=== PATIENT | male | born 1935 | race Caucasian/White ===

== ENCOUNTER 2016-09-17 21:47 | Inpatient (IN) | payer MEDICARE, MEDICAID ==
[2016-09-17] MEDS ORDERED: Albuterol/Ipratropium Neb 3 ML AERS HHN ONE ×2 (22:05→22:23)
--- NOTE | 2016-09-17 22:20 | ED Physician Chart ---
Chief Complaint/HPI - Patient Information Date Seen:: 09/17/16 Time Seen:: 21:50 Chief Complaint:: Cough/Congestion History of Present Illness:: onset x 2 days of fever, cough, and congestion; no H/As, Neck pain, C/P, SOB, Abd. Pain, A/N/V/D/C, chills or urinary s/s Allergies:: Allergies Allergy/AdvReac Type Severity Reaction Status Date / Time aspirin Allergy Verified 01/16/16 10:21 Vitals:: Vital Signs - 8 hr 09/17/16 09/17/16 21:50 22:08 Temp 97.3 F HR 87 91 RR 18 19 BP 148/70 O2 Sat % 97 94 Historian:: Patient, EMS Review:: Nurse's Note Reviewed, Old Chart Reviewed, Transfer documents Reviewed Review of Systems - Review of Systems General/Constitutional: Fever, Chills, No weight loss, No weakness, No diaphoresis, No edema, No loss of appetite Skin: No skin lesions, No rash, No bruising Head: No headache, No light-headedness Eyes: No loss of vision, No pain, No diplopia ENT: No earache, Nasal drainage, No sore throat, No tinnitus Neck: No neck pain, No swelling, No thyromegaly, No stiffness, No mass noted Cardio Vascular: Chest pain, Palpitations, No PND, No orthopnea, No edema Pulmonary: SOB, Cough, No sputum, Wheezing GI: No nausea, No vomiting, No diarrhea, No pain, No melena, No hematochezia, No constipation, No hematemesis G/U: No dysuria, No frequency, No hematuria Musculoskeletal: No bone or joint pain, No back pain, No muscle pain Endocrine: No polyuria, No polydipsia Psychiatric: Prior psych history, Depression, Anxiety, No suicidal ideation, No homicidal ideation, No auditory hallucination, No visual hallucination Hematopoietic: No bruising, No lymphadenopathy Allergic/Immuno: No urticaria, No angioedema Neurological: No syncope, No focal symptoms, No weakness, No paresthesia, No headache, No seizure, No dizziness, No confusion, No vertigo Past Medical History - Past Medical History Obtainable: Yes Past Medical History: HTN, Asthma/COPD, PUD/GERD, Arthritis Family History: Diabetes Melitus, HTN Social History: Non Smoker, No Alcohol, No Drug Use, Single, Care Facility Surgical History: None Psychiatricy History: Depression, Bipolar Medication: Reviewed Family Medical History - Family Member Mother History Unknown: Yes Ethnicity: Non- Living Status: Unknown Physical Exam - Physical Examination General/Constitutional: Awake, Well-developed, well-nourished, Alert, No distress, GCS 15, Non-toxic appearing, Ambulatory Head: Atraumatic Eyes: Lids, conjuctiva normal, PERRL, EOMI Skin: Nl inspection, No rash, No skin lesions, No ecchymosis, Well hydrated, No lymphadenopathy ENMT: External ears, nose nl, Nasal exam nl, Lips, teeth, gums nl Neck: Nontender, Full ROM w/o pain, No JVD, No nuchal rigidity, No bruit, No mass, No stridor Respiratory: Nl effort/Exclusion Other Respiratory comments:: Lungs: + Rales, rhonchi, and wheezes Cardio Vascular: RRR, No murmur, gallop, rubs, NL S1 S2 GI: No tenderness/rebounding/guarding, No organomegaly, No hernia, Normal BS's, Nondistended, No mass/bruits, No McBurney tenderness : No CVA tenderness Extremities: No tenderness or effusion, Full ROM, normal strength in all extremities, No edema, Normal digits & nails Neuro/Psych: Alert/oriented, DTR's symmetric, Normal sensory exam, Normal motor strength, Judgement/insight normal, Mood normal, Normal gait, No focal deficits Misc: normal gait, Normal back, No paraspinal tenderness Labs/Radiology/EKG Results - Radiology Results Results: + LLL Infiltrate; COPD ED Septic Shock - . Is Septic Shock (SBP<90, OR Lactate>4 mmol\L) present?: No - <6hrs of presentation: Vital Signs: Vital Signs - 8 hr 09/17/16 09/17/16 21:50 22:08 Temp 97.3 F HR 87 91 RR 18 19 BP 148/70 O2 Sat % 97 94 Reassessment (Disposition) - Reassessment Reassessment Condition:: Improved - Diagnosis Diagnosis:: Pneumonia; COPD; Sepsis; Cough/Congestion; Fever; Exacerbation of COPD - Aftercare/Follow up Instructions Aftercare/Follow-Up Instructions:: Counseled pt regarding lab results/diagnosis & need follow up, Counseled pt & family regarding lab results/diagnosis & need follow up - Patient Disposition Discharge/Transfer:: Acute Care w/in this hosp Accepting Physician:: Dr. Layne Time Called:: [id number] Time Responded:: 22:30 Admitted to:: Telemetry Spoke to:: Dr. Layne Admitting Medical Physician:: Dr. Layne Condition at Disposition:: Stable, Improved
[2016-09-17] MEDS ORDERED: Levofloxacin 500mg/100mL 500 MG/100 ML BAG IV ONE ×2 (22:30→22:38)
[2016-09-17 22:31] LABS: % BASOPHILS 2.5 % (0.0-2.0); % EOSINOPHILS 1.1 % (0.0-5.0); % LYMPHOCYTES 12.5 % (20.0-50.0); % MONOCYTES 3.7 % (2.0-10.0); % NEUTROPHILS 80.2 % (40.0-80.0); HEMOGLOBIN 16.2 gm/dL (12.6-17.4); MEAN CELL VOLUME 92.2 fl (80-99); MEAN CORPUSCULAR HEMOGLOBIN 30.9 pg (27.0-31.0); MEAN CORPUSCULAR HGB CONC 33.5 pg (28.0-36.0); MEAN PLATELET VOLUME 8.2 fl; NEUTROPHILE ABSOLUTE 12.7 Th/cmm (1.8-8.0); RED BLOOD COUNT 5.24 Mil/cmm (3.80-5.80); RED CELL DISTRIBUTION WIDTH 15.4 % (11.5-20.0)
[2016-09-17 22:40] LABS: WHITE BLOOD COUNT 15.9 Th/cmm (4.8-10.8)
[2016-09-17 22:41] LABS: HEMATOCRIT 48.4 % (39.0-49.0); PLATELET COUNT 349 Th/cmm (150-400)
[2016-09-17 22:48] LABS: INR 1.06 (0.5-1.4)
[2016-09-17 22:52] LABS: TROP I 0.02 ng/mL (0.01-0.05)
[2016-09-17 22:53] LABS: ALB/GLOB RATIO 1.2 (1.0-1.8); ALKALINE PHOSPHATASE 103 U/L (34-104); ANION GAP 9.6 (7.0-16.0); BILIRUBIN,TOTAL 0.6 mg/dL (0.3-1.0); BUN - UREA NITROGEN 23 mg/dL (7-25); BUN/CREATININE RATIO 20.9; CALCIUM SERUM 9.7 mg/dL (8.6-10.3); CARBON DIOXIDE 26.2 mEq/L (21.0-31.0); CHLORIDE 104 mEq/L (98-107); CHOLESTEROL 167 mg/dL (<200); CREATININE - SERUM 1.1 mg/dL (0.7-1.3); GLUCOSE 123 mg/dL (70-105); POTASSIUM SERUM 3.8 mEq/L (3.5-5.1); SGOT 18 U/L (13-39); SGPT/ALT 10 U/L (7-52); SODIUM SERUM 136 mEq/L (136-145); TRIGLYCERIDES 83 mg/dL (<150)
[2016-09-17 23:15] LABS: BNP 76.5 pg/mL (5.0-100.0)
[2016-09-17] MEDS ORDERED: Magnesium Hydroxide (MOM) 30 mL UDC PO PRN (23:28)
[2016-09-17] MEDS ORDERED: Acetaminophen 500 MG TAB PO PRN (23:28)
[2016-09-17] MEDS ORDERED: Maalox 30 mL Cup PO PRN (23:28)
[2016-09-17] MEDS ORDERED: Fleet Enema 135 mL RC PRN (23:28)
[2016-09-17] MEDS ORDERED: Sodium Chloride 0.9% 1,000 ML IV ONE (23:35)
[2016-09-18] MEDS ORDERED: Albuterol Nebulizer 2.5mg/3mL HHN PRN (00:45)
[2016-09-18 01:58] VITALS: BP 127/76
[2016-09-18 02:42] LABS: pH 7.07 (7.35-7.45)
[2016-09-18 02:43] LABS: ABG SOURCE ARTERIAL; ALLEN TEST YES; BE(B) -5.2 mEq/L (-3.0-3.0); CRITICAL VALUES REPORTED BY AB; FIO2 100; HCO3 20.6 mEq/L (20.0-26.0)
[2016-09-18] MEDS: Sodium Chloride 0.9% 1,000 ML IV SCH ×2 (03:38→18:39)
[2016-09-18 05:20] LABS: HEMOGLOBIN 14.4 gm/dL (12.6-17.4)
[2016-09-18 05:31] LABS: HEMATOCRIT 42.3 % (39.0-49.0); MEAN CELL VOLUME 91.8 fl (80-99); MEAN CORPUSCULAR HEMOGLOBIN 31.1 pg (27.0-31.0); MEAN CORPUSCULAR HGB CONC 33.9 pg (28.0-36.0); MEAN PLATELET VOLUME 8.4 fl; PLATELET COUNT 301 Th/cmm (150-400); RED BLOOD COUNT 4.61 Mil/cmm (3.80-5.80)
[2016-09-18 05:38] LABS: ANION GAP 12.2 (7.0-16.0); BUN - UREA NITROGEN 27 mg/dL (7-25); BUN/CREATININE RATIO 22.5; CALCIUM SERUM 9.1 mg/dL (8.6-10.3); CARBON DIOXIDE 23.2 mEq/L (21.0-31.0); CHLORIDE 109 mEq/L (98-107); CREATININE - SERUM 1.2 mg/dL (0.7-1.3); GLUCOSE 217 mg/dL (70-105); POTASSIUM SERUM 4.4 mEq/L (3.5-5.1); SODIUM SERUM 140 mEq/L (136-145)
[2016-09-18 08:38] LABS: BAND NEUTROPHILE 7 % (0-10); NEUTROPHILS 89 % (40-80); PLATELET ESTIMATE ADEQUATE (NORMAL); PLATELET MORPHOLOGY NORMAL (NORMAL); TOTAL CELLS COUNTED 100
[2016-09-18] MEDS ORDERED: INDACATEROL IH SCH (09:00)
[2016-09-18] MEDS ORDERED: GLYCOPYRROLATE IH SCH (09:00)
[2016-09-18] MEDS ORDERED: [UNRECOGNIZED DRUG - OTHER] IH SCH (09:00)
--- NOTE | 2016-09-18 09:58 | Diagnostic Imaging Report ---
CHEST X-RAY: AP view INDICATION: pain COMPARISON: 06/14/2015 FINDINGS: Postsurgical changes of the lower cervical spine are noted. Chronic lung changes are seen with no focal consolidation or effusions. Heart size is normal. Atherosclerotic vascular disease is noted. Degenerative changes of the spine are noted. IMPRESSION: Chronic lung changes. No focal consolidation identified. There may be underlying COPD. Atherosclerotic vascular disease.
--- NOTE | 2016-09-18 10:01 | Diagnostic Imaging Report ---
CHEST X-RAY: AP view INDICATION: Intubation COMPARISON: Chest x-ray 09/17/2016 at 22:33 FINDINGS: ET tube is in place with tip 4 cm above the Donna. COPD lung changes are seen with increased left basal lung markings. Bibasal pleural thickening is suspected. Heart size is normal. Atherosclerosis is noted. IMPRESSION: Interval intubation with ET tube tip 4 cm above the Donna. COPD lung changes. Developing infiltrate the left lung base cannot be excluded.
[2016-09-18] MEDS ORDERED: Probiotic Screen MC PRN (10:58)
--- NOTE | 2016-09-18 11:00 | Diagnostic Imaging Report ---
CHEST X-RAY: AP view INDICATION: Feeding tube placement COMPARISON: Chest x-ray earlier the same day at 2:29 AM FINDINGS: ET tube is seen with tip 4 cm above the figueroa. NG tube is in place with tip in the stomach. There is improved lung aeration. Extensive chronic lung changes are seen with no focal consolidation or effusions. Heart size normal. Atherosclerotic vascular disease is noted. IMPRESSION: NG tube with tip in the stomach ET tube with tip 4 cm above the Figueroa. Extensive chronic lung changes with increased interstitial lung markings. Note that developing faint infiltrate of the left suprahilar region cannot be excluded when compared to previous exams.
[2016-09-18] MEDS ORDERED: VTE Chemical Prophylaxis Screen/Admission MC PRN (11:30)
--- NOTE | 2016-09-18 13:11 | Consultation ---
Consult Note - Consult Note Service Date: 09/18/16 Consult Note: PHYSICIAN Consultation Note: Date of Admission: 09/17/16 Purpose of Consultation: sepsis and pneumonia. Chief Complaint: Patient MADHU LEACH was admitted to location Intensive Care Unit with PNEUMONIA -COPD EXACERBATION. History of Present Illness: 81 year male with history of HTN, Asthma/COPD, PUD/GERD, Arthritis brought from [facility] for for cough and shortness of breath. On initial evaluation, his temperature was 97.3 degree F and WBC Count was 15,900. CXR showed chronic lung changes with pneumonia. He went into respiratory failure so, he was intubated and put on Vent support and admitted to the ICU. He was started on zosyn and ID consult was called for antibiotic management. His lactic acid level was also elevated. I did add vanco IV. Sepsis w/u was performed. Past Medical History: HTN, Asthma/COPD, PUD/GERD, Arthritis. Allergies Allergy/AdvReac Type Severity Reaction Status Date / Time aspirin Allergy Verified 01/16/16 10:21 Vital Signs Temp 98.7 F 09/18/16 04:00 Pulse 82 09/18/16 10:00 Resp 12 09/18/16 10:00 BP 123/68 09/18/16 10:00 Pulse Ox 99 09/18/16 10:00 Intake & Output 09/17/16 09/18/16 09/18/16 18:59 06:59 18:59 Intake Total 350 Balance 350 Intake: Intake, IV Amount 350 Piperacillin Sodium/ 100 Tazobact 4.5 gm In Sodium Chloride 0.9% 100 ml @ 100 mls/hr IV Q8HR [facility] Rx #:[id number] Vancomycin HCl 1 gm In 250 Sodium Chloride 0.9% 250 ml @ 165 mls/hr IV X1 ONE Rx#:[id number] Laboratory Results - last 24 hr 09/17/16 09/18/16 09/18/16 22:48 00:56 01:28 WBC RBC Hgb Hct MCV MCH MCHC Differential RDW Plt Count MPV Band Neutrophils % Neutrophils (Manual) Lymphocytes Monocytes Platelet Estimate Platelet Morphology RBC Morph Micro Appear Specimen Source ARTERIAL Sample Site Right Radial pH 7.07 L* pCO2 93.0 H* pO2 71.0 L HCO3 20.6 Base Excess -5.2 L O2 Saturation 86.0 L Adebayo Test YES Vent Rate N/A Inspired O2 100 Tidal Volume N/A PEEP N/A Pressure (ins/psv/peep) N/A Critical Value AB Sodium Potassium Chloride Carbon Dioxide Anion Gap BUN Creatinine Est GFR ( Amer) Est GFR (Non-Af Amer) BUN/Creatinine Ratio Glucose Hemoglobin A1c % Whole Bld Lactic Acid 2.02 H* 3.14 H* Calcium 09/18/16 09/18/16 09/18/16 05:08 05:08 05:08 WBC 23.0 H* D RBC 4.61 Hgb 14.4 Hct 42.3 D MCV 91.8 MCH 31.1 H MCHC Differential 33.9 RDW 15.0 Plt Count 301 MPV 8.4 Band Neutrophils % 7 Neutrophils (Manual) 89 H Lymphocytes 2 L Monocytes 2 Platelet Estimate ADEQUATE Platelet Morphology NORMAL RBC Morph Micro Appear NORMAL Specimen Source Sample Site pH pCO2 pO2 HCO3 Base Excess O2 Saturation Adebayo Test Vent Rate Inspired O2 Tidal Volume PEEP Pressure (ins/psv/peep) Critical Value Sodium 140 Potassium 4.4 Chloride 109 H Carbon Dioxide 23.2 Anion Gap 12.2 BUN 27 H Creatinine 1.2 Est GFR ( Amer) TNP Est GFR (Non-Af Amer) TNP BUN/Creatinine Ratio 22.5 Glucose 217 H Hemoglobin A1c % 5.3 Whole Bld Lactic Acid Calcium 9.1 Home Medication Medication Instructions Recorded Type Thiamine [Vitamin B1] 100 mg PO DAILY #0 tab 06/29/15 Rx Multivitamin with Minerals 1 tab PO DAILY 01/16/16 History [Multiple Vitamin] Omeprazole 20.6 mg PO QDAC 01/16/16 History amLODIPine Besylate [Norvasc] 5 mg PO DAILY 01/16/16 History Acetaminophen [Tylenol] 650 mg PO Q4HR PRN #0 tab 01/30/16 Rx Al Hyd/Mg Hyd/Simethicone [Maalox] 30 ml PO Q4HR PRN #0 udc 01/30/16 Rx Albuterol Nebulizer 2.5mg/3mL 2.5 mg HHN Q6HRT #0 each 01/30/16 Rx [Albuterol Neb UD*] PARoxetine [Paxil] 10 mg PO DAILY #0 tab 01/30/16 Rx Acetaminophen [Tylenol Extra 2 tab PO Q4HR PRN 09/17/16 History Strength] Bisacodyl [Dulcolax 10 Mg Supp] 10 mg RC DAILY PRN 08/02/17 History Calcium Carbonate/Vitamin D3 1 each PO DAILY 09/17/16 History [Calcium 600 + Vit D Softgel] Docusate Sodium [Colace] 100 mg PO BID 09/17/16 History Donepezil HCl [Aricept] 10 mg PO HS 09/17/16 History Fleet Enema [Fleet Enema] 135 ml RC Q48HR PRN 09/17/16 History Indacaterol/Glycopyrrolate 1 each IH BID 09/17/16 History [Utibron Neohaler 27.5-15.6 Mcg] Magnesium Hydroxide [Milk of 30 ml PO HS PRN 09/17/16 History Magnesia] Memantine [Namenda] 10 mg PO BID 09/17/16 History Current Medications Generic Name Dose Route Start Last Admin Trade Name Freq PRN Reason Stop Dose Admin Acetaminophen 650 mg 09/17/16 23:28 Tylenol PO 11/16/16 23:27 Q4HR PRN Pain (Mild) Acetaminophen 1,000 mg 09/17/16 23:28 Tylenol Extra Strength PO 11/16/16 23:27 Q4HR PRN Pain (Moderate) Al Hydrox/Mg Hydrox/Simethicone 30 ml 09/17/16 23:28 Maalox PO 11/16/16 23:27 Q4HR PRN GI DISTRESS Albuterol Sulfate 2.5 mg 09/18/16 00:45 Albuterol 2.5mg/3ml Neb Ud HHN 11/17/16 00:44 Q4H PRN Shortness of Breath Amlodipine Besylate 5 mg 09/18/16 09:00 Norvasc PO 11/17/16 08:59 DAILY [facility] Bisacodyl 10 mg 09/17/16 23:28 Dulcolax 10 Mg Supp RC 11/16/16 23:27 DAILY PRN Constipation Calcium/Vitamin D 1 tab 09/18/16 09:00 Oscal W/Vitamin D PO 11/17/16 08:59 DAILY [facility] Docusate Sodium 100 mg 09/18/16 09:00 Colace PO 11/17/16 08:59 BID [facility] Donepezil HCl 10 mg 09/18/16 21:00 Aricept PO 11/17/16 20:59 HS [facility] Heparin Sodium (Porcine) 5,000 units 09/18/16 21:00 Heparin SUBQ 11/17/16 20:59 Q12HR [facility] Levofloxacin 500 mg in 100 mls @ 100 mls/hr 09/18/16 23:00 Levaquin Pb IV 11/17/16 22:59 Q24HR [facility] Sodium Chloride 1,000 mls @ 100 mls/hr 09/18/16 03:23 09/18/16 03:38 Nacl 0.9% IV 11/17/16 03:22 100 mls/hr .Q10H [facility] Administration Piperacillin Sod/Tazobactam 100 mls @ 100 mls/hr 09/18/16 05:00 09/18/16 06: 20 Sod 4.5 gm/ Sodium Chloride IV 11/17/16 04:59 Infused Q8HR [facility] Infusion Vancomycin HCl 1 gm/ Sodium 250 mls @ 165 mls/hr 09/18/16 10:00 Chloride IV 11/17/16 09:59 Q12H [facility] Lactobacillus Rhamnosus 1 each 09/19/16 09:00 Culturelle PO 11/18/16 08:59 DAILY [facility] Magnesium Hydroxide 30 ml 09/17/16 23:28 Milk Of Magnesia PO 11/16/16 23:27 HS PRN Constipation Memantine 10 mg 09/18/16 09:00 Namenda PO 11/17/16 08:59 BID [facility] Miscellaneous 1 each 09/18/16 09:00 Indacaterol/Glycopyrrolate [Utibron Neohaler 27.5-15.6 Mcg] IH 11/17/16 08: 59 BID [facility] Miscellaneous 1 ea 09/18/16 05:13 Vancomycin Iv Per Pharmacy 11/17/16 05:12 PRN PRN PROTOCOL Miscellaneous 1 09/18/16 10:58 Probiotic Screen 11/17/16 10:57 PRN PRN PROTOCOL Miscellaneous 1 09/18/16 11:30 [employer] Prophylaxis Screen/ Admission 11/17/16 11:29 PRN PRN PROTOCOL Pantoprazole Sodium 40 mg 09/18/16 07:30 Protonix PO 11/17/16 07:29 QDAC [facility] Paroxetine HCl 10 mg 09/18/16 09:00 Paxil PO 11/17/16 08:59 DAILY [facility] Protocol Pneumococcal Polyvalent Vaccine 0.5 ml 09/20/16 09:00 Pneumovax IM 09/20/16 09:01 .ONCE ONE Sodium Phosphate 135 ml 09/17/16 23:28 Fleet Enema RC 11/16/16 23:27 Q48HR PRN Constipation Thiamine HCl 100 mg 09/18/16 09:00 Vitamin B1 PO 11/17/16 08:59 DAILY [facility] Review of Systems: A 12 point ROS was reviewed with the pertinent positive and negatives noted in the HPI. Social History Smoking Status Never smoker Family Medical History DM2 Physical Exam: General: Intubated orally, on the ventilator support. arousable. moves is all 4 extremities. HEENT: Head : Normocephalic, atraumatic. Oral cavity: Moist, pink tongue. Patient intubated orally. Neck: Supple, no rigidity, no use of accessory neck muscles. Cardio: S1 and S2 within normal limits regular rhythm no murmur no gallop. Respiratory: Vesicular breath sound, crackles present bilaterally Abdominal: , Nontender, nondistended bowel sounds present scaphoid. Genital/Urinary: Deferred Extremities: No cyanosis, no clubbing, no edema. Pulses are palpable in all 4 extremities. Neurological: Oriented. Alert, awake, follows the commands. Assessment: 1. Sepsis. Severe sepsis. Lactic acidemia. 2. Pneumonia. 3. 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 4. Vent-dependent respiratory failure, acute. 5. Hypertension. Plan: Will continue vancomycin IV and Zosyn. Check lactic acid. Signed, Duy Augustin M.D. [id number]
[2016-09-18] MEDS: Multivitamin w/ Minerals Tab PO SCH (13:52)
[2016-09-18] MEDS: Calcium Carb/Vit D 500 mg/200 U Tab PO SCH (13:52)
[2016-09-18] MEDS: Pantoprazole 40 mg EC Tab PO SCH (13:52)
[2016-09-18 15:47] LABS: ABG SOURCE Arterial; ALLEN TEST Positive; BE(B) -1.5 mEq/L (-3.0-3.0); HCO3 23.8 mEq/L (20.0-26.0); pH 7.48 (7.35-7.45)
[2016-09-18 15:48] LABS: FIO2 40; MECH RATE 12; MECH VT 550
[2016-09-18] MEDS: Albuterol Nebulizer 2.5mg/3mL HHN SCH ×3 (16:03→22:42)
[2016-09-18 19:51] LABS: URINE BILIRUBIN NEGATIVE (NEGATIVE); URINE BLOOD TRACE (NEGATIVE); URINE GLUCOSE (UA) NEGATIVE (NEGATIVE); URINE KETONE TRACE mg/dL (NEGATIVE); URINE PH 5.5 (4.6 - 8.0); URINE PROTEIN TRACE mg/dL (NEGATIVE); URINE UROBILINOGEN 0.2 E.U./dL (0.2 - 1.0)
[2016-09-18 19:57] LABS: URINE BACTERIA FEW /hpf (NONE SEEN); URINE COLOR YELLOW; URINE EPITHELIAL CELLS FEW /lpf (FEW)
--- NOTE | 2016-09-18 22:28 | Consultation ---
DATE OF CONSULTATION: 09/18/2016 PATIENT OF: Dr. Layne. Thank you very much Dr. Layne for this consultation. HISTORY OF PRESENT ILLNESS: This is an 81-year-old male with history of COPD, presented with acute respiratory distress, shortness of breath, and was diagnosed with COPD exacerbation, and pneumonia. The patient apparently was developing desaturation. ABG shows CO2 retention and respiratory acidosis. The patient required to be intubated and placed on a ventilator. The patient is now awake, alert and responsive, but is not answering questions especially about smoking or the breathing. PAST MEDICAL HISTORY: As above. SOCIAL HISTORY: Smoking appears to be many years ago. REVIEW OF SYSTEMS: Unable to obtain because of the patient's condition. PHYSICAL EXAMINATION: GENERAL: The patient is intubated, arousable, not in acute distress. VITAL SIGNS: Temperature is 98.7, pulse is 75, respiration is 20, blood pressure is 123/60, saturation 100%. HEENT: Atraumatic, normocephalic. Pupils react to light and accommodation. Ears, nose and throat normal. NECK: Supple. No JVD. CHEST: There are decreased breath sounds, rhonchi and wheezing bilaterally. HEART: Regular rate. ABDOMEN: Soft. EXTREMITIES: No edema. LABORATORY DATA: WBC is 23.0, hemoglobin 14.4, hematocrit 42.3, platelets 301. ABGs last one was severe respiratory acidosis. Sodium 140, potassium 4.4, BUN is 27, creatinine 1.2. Lactic acid 3.6. Chest x-ray, bilateral infiltrate. ET tube in place. IMPRESSION: 1. This is an 81-year-old male with acute respiratory failure. 2. Pneumonia. 3. Chronic obstructive pulmonary disease exacerbation. 4. Severely respiratory acidosis. PLAN: 1. Ventilator support. 2. IV Solu-Medrol. 3. Pulmonary toilet. 4. Antibiotics. 5. Follow up ABGs and chest x-ray. I will follow the patient with you. Thank you very much for this consultation. JOB# [id number]
[2016-09-18] MEDS: Levofloxacin 500mg/100mL 500 MG/100 ML BAG IV SCH (23:55)
[2016-09-19 06:07] LABS: MEAN CELL VOLUME 92.3 fl (80-99); MEAN CORPUSCULAR HEMOGLOBIN 31.8 pg (27.0-31.0); MEAN CORPUSCULAR HGB CONC 34.5 pg (28.0-36.0); MEAN PLATELET VOLUME 8.9 fl; RED BLOOD COUNT 3.88 Mil/cmm (3.80-5.80); RED CELL DISTRIBUTION WIDTH 15.2 % (11.5-20.0)
[2016-09-19 06:12] LABS: ANION GAP 7.4 (7.0-16.0); BUN - UREA NITROGEN 34 mg/dL (7-25); BUN/CREATININE RATIO 28.3; CALCIUM SERUM 8.7 mg/dL (8.6-10.3); CARBON DIOXIDE 22.2 mEq/L (21.0-31.0); CHLORIDE 116 mEq/L (98-107); CREATININE - SERUM 1.2 mg/dL (0.7-1.3); GLUCOSE 190 mg/dL (70-105); POTASSIUM SERUM 3.6 mEq/L (3.5-5.1); SODIUM SERUM 142 mEq/L (136-145)
[2016-09-19] MEDS: Albuterol Nebulizer 2.5mg/3mL HHN SCH ×5 (07:17→22:46)
[2016-09-19 07:47] LABS: HEMATOCRIT 35.8 % (39.0-49.0); HEMOGLOBIN 12.4 gm/dL (12.6-17.4); PLATELET COUNT 240 Th/cmm (150-400); WHITE BLOOD COUNT 18.9 Th/cmm (4.8-10.8)
[2016-09-19 08:24] LABS: BAND NEUTROPHILE 6 % (0-10); NEUTROPHILS 85 % (40-80); PLATELET ESTIMATE ADEQUATE (NORMAL); PLATELET MORPHOLOGY NORMAL (NORMAL); TOTAL CELLS COUNTED 100
[2016-09-19] MEDS: Calcium Carb/Vit D 500 mg/200 U Tab PO SCH (09:07)
[2016-09-19] MEDS: Lactobacillus Rhamnosus 10 Billion CFU Capsule PO SCH (09:07)
[2016-09-19] MEDS: Multivitamin w/ Minerals Tab PO SCH (09:07)
--- NOTE | 2016-09-19 09:14 | Diagnostic Imaging Report ---
Portable chest x-ray HISTORY: Shortness of breath The heart size is normal. Atherosclerotic calcification seen in the aorta. Accentuation of the interstitial lung markings. However, no acute focal pulmonary processes are seen. An endotracheal tube tip is approximately 3.5 cm above the figueroa. Severe degenerative changes to the spine. IMPRESSION: 1. No change from September 18, 2016. 2. Accentuation of the interstitial lung markings. However, no focal processes are seen.
[2016-09-19] MEDS: Pantoprazole 40 mg EC Tab PO SCH (09:26)
[2016-09-19] MEDS: Sodium Chloride 0.9% 1,000 ML IV SCH ×2 (09:28→19:57)
--- NOTE | 2016-09-19 11:55 | History & Physical ---
ADMIT DATE: 09/18/2016 HISTORY OF PRESENT ILLNESS: The patient apparently is from [facility]. The patient ____ history of fever, cough, ____, chest congestion for the last 2 days, was complaining of shortness of breath, was transferred to the ER and DrAnabell ____ saw the patient and found that he has pneumonia and initially I was told that ____ deteriorated respiratory function requiring intubation and was admitted to ICU. REVIEW OF SYSTEMS: Noted earlier, the patient has a history of ____. PAST MEDICAL HISTORY: Included history of asthma, history of ____, history of peptic ulcer disease. PHYSICAL EXAMINATION: GENERAL: As I told initially was awake, alert, shortness of breath ____. HEAD: Normal. The patient is intubated. ____. ENT: Normal. LUNGS: Bilateral rales. CARDIOVASCULAR SYSTEM: S1, S2 heard. ABDOMEN: Soft. DIAGNOSES: Acute respiratory failure, status post recent intubation, pneumonia, history of hypertension, history of asthma, and history of psych disorder. PLAN: The patient is being admitted and will have Dr. Duy Augustin see the patient for ID as well as Dr. Sharma for Pulmonary and I will follow the patient. [facility]# [id number]
--- NOTE | 2016-09-19 16:16 | Infectious Disease Prog Note ---
Infectious Disease Subjective - Review of Systems Service Date: 09/19/16 Subjective: No change,no fever. Infectious Disease Objective - Results Result Diagrams: 09/19/16 04:54 09/19/16 04:54 Recent Labs: Laboratory Last Values WBC 18.9 Th/cmm (4.8-10.8) H 09/19/16 04:54 RBC 3.88 Mil/cmm (3.80-5.80) 09/19/16 04:54 Hgb 12.4 gm/dL (12.6-17.4) L D 09/19/16 04:54 Hct 35.8 % (39.0-49.0) L D 09/19/16 04:54 MCV 92.3 fl (80-99) 09/19/16 04:54 MCH 31.8 pg (27.0-31.0) H 09/19/16 04:54 MCHC Differential 34.5 pg (28.0-36.0) 09/19/16 04:54 RDW 15.2 % (11.5-20.0) 09/19/16 04:54 Plt Count 240 Th/cmm (150-400) D 09/19/16 04:54 MPV 8.9 fl 09/19/16 04:54 Neutrophils % 80.2 % (40.0-80.0) H 09/17/16 22:19 Band Neutrophils % 6 % (0-10) 09/19/16 04:54 Lymphocytes % 12.5 % (20.0-50.0) L 09/17/16 22:19 Monocytes % 3.7 % (2.0-10.0) 09/17/16 22:19 Eosinophils % 1.1 % (0.0-5.0) 09/17/16 22:19 Basophils % 2.5 % (0.0-2.0) H 09/17/16 22:19 Neutrophils (Manual) 85 % (40-80) H 09/19/16 04:54 Lymphocytes 4 % (20-50) L 09/19/16 04:54 Monocytes 5 % (2-10) 09/19/16 04:54 Platelet Estimate ADEQUATE (NORMAL) 09/19/16 04:54 Platelet Morphology NORMAL (NORMAL) 09/19/16 04:54 RBC Morph Micro Appear NORMAL (NORMAL) 09/19/16 04:54 PT 11.0 SECONDS (9.5-11.5) 09/17/16 22:19 INR 1.06 (0.5-1.4) 09/17/16 22:19 PTT (Actin FS) 25.3 SECONDS (26.0-38.0) L 09/17/16 22:19 D-Dimer 1280 ng/mL (100-400) H 09/17/16 22:19 Specimen Source Arterial 09/18/16 15:24 Sample Site Right Radial 09/18/16 15:24 pH 7.48 (7.35-7.45) H 09/18/16 15:24 pCO2 28.0 mmHg (35.0-45.0) L 09/18/16 15:24 pO2 131.0 mmHg (80.0-100.0) H 09/18/16 15:24 HCO3 23.8 mEq/L (20.0-26.0) 09/18/16 15:24 Base Excess -1.5 mEq/L (-3.0-3.0) 09/18/16 15:24 O2 Saturation 99.0 % (92.0-100.0) 09/18/16 15:24 Adebayo Test Positive 09/18/16 15:24 Vent Rate 12 09/18/16 15:24 Inspired O2 40 09/18/16 15:24 Tidal Volume 550 09/18/16 15:24 PEEP NA 09/18/16 15:24 Pressure (ins/psv/peep) NA 09/18/16 15:24 Critical Value LZHANG 09/18/16 15:24 Sodium 142 mEq/L (136-145) 09/19/16 04:54 Potassium 3.6 mEq/L (3.5-5.1) 09/19/16 04:54 Chloride 116 mEq/L (98-107) H 09/19/16 04:54 Carbon Dioxide 22.2 mEq/L (21.0-31.0) 09/19/16 04:54 Anion Gap 7.4 (7.0-16.0) 09/19/16 04:54 BUN 34 mg/dL (7-25) H 09/19/16 04:54 Creatinine 1.2 mg/dL (0.7-1.3) 09/19/16 04:54 Est GFR ( Amer) TNP 09/19/16 04:54 Est GFR (Non-Af Amer) TNP 09/19/16 04:54 BUN/Creatinine Ratio 28.3 09/19/16 04:54 Glucose 190 mg/dL (70-105) H 09/19/16 04:54 Hemoglobin A1c % 5.3 % (4.0-6.0) 09/18/16 05:08 Whole Bld Lactic Acid 3.35 mmol/L (0.60-1.99) H* 09/18/16 15:38 Calcium 8.7 mg/dL (8.6-10.3) 09/19/16 04:54 Total Bilirubin 0.6 mg/dL (0.3-1.0) 09/17/16 22:19 AST 18 U/L (13-39) 09/17/16 22:19 ALT 10 U/L (7-52) 09/17/16 22:19 Alkaline Phosphatase 103 U/L (34-104) 09/17/16 22:19 Creatine Kinase 73 U/L (30-223) 09/17/16 22:19 Troponin I 0.02 ng/mL (0.01-0.05) 09/17/16 22:19 B-Natriuretic Peptide 76.5 pg/mL (5.0-100.0) 09/17/16 22:19 Total Protein 7.5 gm/dL (6.0-8.3) 09/17/16 22:19 Albumin 4.1 gm/dL (4.2-5.5) L 09/17/16 22:19 Globulin 3.4 gm/dL 09/17/16 22:19 Albumin/Globulin Ratio 1.2 (1.0-1.8) 09/17/16 22:19 Triglycerides 83 mg/dL (<150) 09/17/16 22:19 Cholesterol 167 mg/dL (<200) 09/17/16 22:19 LDL Cholesterol Direct 120 mg/dL (75-193) 09/17/16 22:19 HDL Cholesterol 46 mg/dL (23-92) 09/17/16 22:19 Urine Source CLEAN C 09/18/16 19:00 Urine Color YELLOW 09/18/16 19:00 Urine Clarity TURBID (CLEAR) 09/18/16 19:00 Urine pH 5.5 (4.6 - 8.0) 09/18/16 19:00 Ur Specific [place] 1.025 (1.005-1.030) 09/18/16 19:00 Urine Protein TRACE mg/dL (NEGATIVE) 09/18/16 19:00 Urine Glucose (UA) NEGATIVE mg/dL (NEGATIVE) 09/18/16 19:00 Urine Ketones TRACE mg/dL (NEGATIVE) 09/18/16 19:00 Urine Blood TRACE (NEGATIVE) 09/18/16 19:00 Urine Nitrate NEGATIVE (NEGATIVE) 09/18/16 19:00 Urine Bilirubin NEGATIVE (NEGATIVE) 09/18/16 19:00 Urine Urobilinogen 0.2 E.U./dL (0.2 - 1.0) 09/18/16 19:00 Ur Leukocyte Esterase NEGATIVE (NEGATIVE) 09/18/16 19:00 Urine RBC 2-5 /hpf (0-5) H 09/18/16 19:00 Urine WBC 2-5 /hpf (0-5) H 09/18/16 19:00 Ur Epithelial Cells FEW /lpf (FEW) 09/18/16 19:00 Urine Bacteria FEW /hpf (NONE SEEN) 09/18/16 19:00 Vancomycin Trough 17.2 ug/mL (10-20) 09/19/16 09:20 - Physical Exam Vitals and I&O: Vital Signs Temp 99.1 F 09/19/16 13:00 Pulse 83 09/19/16 15:29 Resp 12 09/19/16 13:00 BP 137/68 09/19/16 13:00 Pulse Ox 100 09/19/16 15:29 Intake & Output 09/18/16 09/19/16 09/19/16 18:59 06:59 18:59 Intake Total 1650 1999 Balance 1650 1999 Weight (lbs) 61.235 kg 61.235 kg Intake: Intake, IV Amount 1350 1450 Piperacillin Sodium/ 100 200 Tazobact 4.5 gm In Sodium Chloride 0.9% 100 ml @ 100 mls/hr IV Q8HR [facility] Rx #:[id number] Sodium Chloride 0.9% 1, 1000 1000 000 ml @ 100 mls/hr IV . Q10H [facility] Rx#:[id number] Vancomycin HCl 1 gm In 250 250 Sodium Chloride 0.9% 250 ml @ 165 mls/hr IV Q12H [facility] Rx#:[id number] Tube Feeding 300 550 Other: # Voids 3 5 # Bowel Movements 0 0 Active Medications: Current Medications Acetaminophen (Tylenol) 650 mg PO Q4HR PRN PRN Reason: Pain (Mild) Stop: 11/16/16 23:27 Al Hydrox/Mg Hydrox/Simethicone (Maalox) 30 ml PO Q4HR PRN PRN Reason: GI DISTRESS Stop: 11/16/16 23:27 Albuterol Sulfate (Albuterol 2.5mg/3ml Neb Ud) 2.5 mg HHN Q4H [facility] Stop: 11/17/16 15:14 Last Admin: 09/19/16 15:29 Dose: 2.5 mg Amlodipine Besylate (Norvasc) 5 mg PO DAILY [facility] Stop: 11/17/16 08:59 Last Admin: 09/19/16 09:07 Dose: 5 mg Bisacodyl (Dulcolax 10 Mg Supp) 10 mg RC DAILY PRN PRN Reason: Constipation Stop: 11/16/16 23:27 Calcium/Vitamin D (Oscal W/Vitamin D) 1 tab PO DAILY [facility] Stop: 11/17/16 08:59 Last Admin: 09/19/16 09:07 Dose: 1 tab Docusate Sodium (Colace) 100 mg PO BID [facility] Stop: 11/17/16 08:59 Last Admin: 09/19/16 09:07 Dose: 100 mg Donepezil HCl (Aricept) 10 mg PO HS [facility] Stop: 11/17/16 20:59 Last Admin: 09/18/16 20:48 Dose: 10 mg Heparin Sodium (Porcine) (Heparin) 5,000 units SUBQ Q12HR [facility] Stop: 11/17/16 20:59 Last Admin: 09/19/16 09:09 Dose: 5,000 units Levofloxacin (Levaquin Pb) 500 mg in 100 mls @ 100 mls/hr IV Q24HR [facility] Stop: 11/17/16 22:59 Last Admin: 09/18/16 23:55 Dose: 100 mls/hr Sodium Chloride (Nacl 0.9%) 1,000 mls @ 100 mls/hr IV .Q10H [facility] Stop: 11/17/16 03:22 Last Admin: 09/19/16 09:28 Dose: 100 mls/hr Piperacillin Sod/Tazobactam (Sod 4.5 gm/ Sodium Chloride) 100 mls @ 100 mls/hr IV Q8HR [facility] Stop: 11/17/16 04:59 Last Admin: 09/19/16 14:17 Dose: 100 mls/hr Vancomycin HCl 1 gm/ Sodium (Chloride) 250 mls @ 165 mls/hr IV Q12H [facility] Stop: 11/17/16 09:59 Last Admin: 09/19/16 11:02 Dose: 165 mls/hr Lactobacillus Rhamnosus (Culturelle) 1 each PO DAILY [facility] Stop: 11/18/16 08:59 Last Admin: 09/19/16 09:07 Dose: 1 each Lorazepam (Ativan) 1 mg IVP Q4HR PRN; Protocol PRN Reason: Agitation Stop: 11/17/16 15:11 Magnesium Hydroxide (Milk Of Magnesia) 30 ml PO HS PRN PRN Reason: Constipation Stop: 11/16/16 23:27 Memantine (Namenda) 10 mg PO BID [facility] Stop: 11/17/16 08:59 Last Admin: 09/19/16 09:07 Dose: 10 mg Methylprednisolone Sodium Succinate (Solu-Medrol) 40 mg IVP Q12HR [facility] Stop: 11/18/16 20:59 Miscellaneous (Probiotic Screen) 1 ea PRN PRN PRN Reason: PROTOCOL Stop: 11/17/16 10:57 Miscellaneous (Vte Chemical Prophylaxis Screen/ Admission) 1 ea PRN PRN PRN Reason: PROTOCOL Stop: 11/17/16 11:29 Miscellaneous (Vancomycin Iv Per Pharmacy) 1 ea MC PRN [facility] Stop: 11/17/16 12:14 Pantoprazole Sodium (Protonix) 40 mg PO QDAC [facility] Stop: 11/17/16 07:29 Last Admin: 09/19/16 09:26 Dose: 40 mg Paroxetine HCl (Paxil) 10 mg PO DAILY [facility] PRN Reason: Protocol Stop: 11/17/16 08:59 Last Admin: 09/19/16 09:08 Dose: 10 mg Pneumococcal Polyvalent Vaccine (Pneumovax) 0.5 ml IM .ONCE ONE Stop: 09/20/16 09:01 Sodium Phosphate (Fleet Enema) 135 ml RC Q48HR PRN PRN Reason: Constipation Stop: 11/16/16 23:27 Thiamine HCl (Vitamin B1) 100 mg PO DAILY [facility] Stop: 11/17/16 08:59 Last Admin: 09/19/16 09:07 Dose: 100 mg General: no acute distress, well developed, well nourished HEENT: atraumatic, normocephalic, PERRLA, EOMI Neck: supple, no thyromegaly Cardiovascular: S1S2, regular Lungs: clear to auscultation bilaterally, clear to percussion Abdomen: soft, no tender, no distended Extremities: no cyanosis, no clubbing, no edema Neurological: awake, alert - Procedures Procedures: Procedures Procedure Code Date GROUP PSYCHOTHERAPY 57480 06/14/15 GROUP PSYCHOTHERAPY GZHZZZZ 06/14/15 INSERT EMERGENCY AIRWAY 61292 09/17/16 INSERTION OF ENDOTRACHEAL AIRWAY INTO [facility]HEA, VIA OPENING [id number] 09/17/16 RESPIRATORY VENTILATION, 24-96 CONSECUTIVE HOURS [id number] 09/17/16 VENT MGMT INPAT INIT DAY 51636 09/17/16 VENT MGMT INPAT SUBQ DAY 85332 09/17/16 Infectious Disease Assmt/Plan - Problem List Patient Problems: All Active Problems Dementia (Acute) F03.90 INAPPROPRIATE TOUCHING (Acute 06/14/15) Inappropriate behavior (Acute) F99 - Assessment Assessment: 1. Sepsis. Severe sepsis. Lactic acidemia. 2. Pneumonia. 3. 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 4. Vent-dependent respiratory failure, acute. 5. Hypertension. Plan: Will continue vancomycin IV and Zosyn.
[2016-09-19] MEDS: methylPREDNISolone SS 40 mg Vial IVP SCH (20:55)
[2016-09-19] MEDS: Levofloxacin 500mg/100mL 500 MG/100 ML BAG IV SCH (23:48)
[2016-09-20] MEDS: Albuterol Nebulizer 2.5mg/3mL HHN SCH ×4 (03:11→14:52)
[2016-09-20 05:18] LABS: HEMATOCRIT 37.3 % (39.0-49.0); HEMOGLOBIN 12.5 gm/dL (12.6-17.4); MEAN CELL VOLUME 92.2 fl (80-99); MEAN CORPUSCULAR HEMOGLOBIN 30.9 pg (27.0-31.0); MEAN CORPUSCULAR HGB CONC 33.5 pg (28.0-36.0); MEAN PLATELET VOLUME 8.5 fl; PLATELET COUNT 216 Th/cmm (150-400); RED BLOOD COUNT 4.05 Mil/cmm (3.80-5.80); RED CELL DISTRIBUTION WIDTH 15.5 % (11.5-20.0)
[2016-09-20 05:45] LABS: WHITE BLOOD COUNT 15.8 Th/cmm (4.8-10.8)
[2016-09-20 05:46] LABS: ANION GAP 8.1 (7.0-16.0); BUN - UREA NITROGEN 19 mg/dL (7-25); BUN/CREATININE RATIO 21.1; CALCIUM SERUM 8.7 mg/dL (8.6-10.3); CARBON DIOXIDE 24.3 mEq/L (21.0-31.0); CHLORIDE 108 mEq/L (98-107); CREATININE - SERUM 0.9 mg/dL (0.7-1.3); GLUCOSE 164 mg/dL (70-105); POTASSIUM SERUM 3.4 mEq/L (3.5-5.1); SODIUM SERUM 137 mEq/L (136-145)
[2016-09-20 05:53] LABS: TOTAL CELLS COUNTED 100
[2016-09-20 05:54] LABS: BAND NEUTROPHILE 6 % (0-10); BASOPHIL 0 % (0-3); EOSINOPHIL 0 % (0-5); NEUTROPHILS 88 % (40-80)
[2016-09-20 05:55] LABS: PLATELET ESTIMATE ADEQUATE (NORMAL); PLATELET MORPHOLOGY NORMAL (NORMAL)
[2016-09-20] MEDS: Sodium Chloride 0.9% 1,000 ML IV SCH (06:17)
[2016-09-20] MEDS ORDERED: KCL 20mEq/100mL Premix 20 MEQ/100 ML PIGGYBACK IV ONE (08:11)
[2016-09-20] MEDS: Pantoprazole 40 mg EC Tab PO SCH (09:00)
[2016-09-20] MEDS ORDERED: Pneumococcal Vaccine 0.5 mL Vial IM ONE (09:00)
[2016-09-20] MEDS: methylPREDNISolone SS 40 mg Vial IVP SCH ×2 (09:57→20:42)
[2016-09-20] MEDS: Lactobacillus Rhamnosus 10 Billion CFU Capsule PO SCH (09:59)
[2016-09-20 10:00] LABS: pH 7.45 (7.35-7.45)
[2016-09-20 10:01] LABS: ABG SOURCE Arterial; ALLEN TEST Positive; BE(B) 1.8 mEq/L (-3.0-3.0); FIO2 28; HCO3 26.3 mEq/L (20.0-26.0)
[2016-09-20] MEDS: Calcium Carb/Vit D 500 mg/200 U Tab PO SCH (10:02)
[2016-09-20] MEDS: Multivitamin w/ Minerals Tab PO SCH (10:02)
--- NOTE | 2016-09-20 10:40 | Diagnostic Imaging Report ---
Exam: Portable examination of the chest. HISTORY: Shortness of breath. Findings Portable upright examination of chest at 0941 hours reviewed no prior studies available comparison. Bony thorax intact. Fusion of cervical spine appreciated. The aortic arch calcified. No acute pulmonic infiltrates are noted. The costophrenic angles are clear. COPD changes are noted. IMPRESSION: COPD changes no acute disease.
[2016-09-20] MEDS ORDERED: Potassium Chloride 20 MEQ, Lidocaine 1% 20mL Vial 25 MG in Sodium Chloride 0.9% 250 ML IV ONE (10:47)
--- NOTE | 2016-09-20 12:49 | Progress Notes ---
DATE: 09/20/2016 SUBJECTIVE: The patient was seen in her room, lying in the bed. The patient is a poor historian due to medical condition. The patient is currently on simple mask, but no shortness of breath. The patient appears in no acute distress, appears to be comfortable. OBJECTIVE: VITAL SIGNS: Heart rhythm 65, blood pressure 163/66, respiration of 19, 99% on simple mask. HEENT: Head is atraumatic and normocephalic. Eyes: Bilateral conjunctivae are clear. Bilateral pupils are equally round and reactive. NECK: Supple. No JVD. CARDIOVASCULAR: S1 and S2, without murmur. Yahir to sinus rhythm on the monitor. PULMONARY: Mild inspiratory wheezing noted. GASTROINTESTINAL: Soft and nontender without guarding. Positive bowel sounds. MUSCULOSKELETAL: No edema, no clubbing, no cyanosis noted. ASSESSMENT: 1. Acute respiratory failure. 2. Pneumonia. 3. Hypertension. 4. Asthma. 5. Bipolar. 6. Dementia. 7. Gastroesophageal reflux disease. PLAN: We will continue IV antibiotics per ID doctor. We will continue breathing treatment and provide pulmonary support. Treatment plans were discussed with patient's nurse. Treatment plans were also discussed with Dr. Layne. JOB# [id number]
[2016-09-20] MEDS: Levofloxacin 500mg/100mL 500 MG/100 ML BAG IV SCH (23:40)
[2016-09-21] MEDS: Albuterol Nebulizer 2.5mg/3mL HHN SCH ×5 (03:35→19:06)
[2016-09-21] MEDS: Pantoprazole 40 mg EC Tab PO SCH (06:48)
--- NOTE | 2016-09-21 07:26 | General Progress Note ---
Subjective - Review of Systems Events since last encounter: no distress denies sob Objective - Results Result Diagrams: 09/20/16 05:00 09/20/16 05:00 Recent Labs: Laboratory Last Values WBC 15.8 Th/cmm (4.8-10.8) H 09/20/16 05:00 RBC 4.05 Mil/cmm (3.80-5.80) 09/20/16 05:00 Hgb 12.5 gm/dL (12.6-17.4) L 09/20/16 05:00 Hct 37.3 % (39.0-49.0) L 09/20/16 05:00 MCV 92.2 fl (80-99) 09/20/16 05:00 MCH 30.9 pg (27.0-31.0) 09/20/16 05:00 MCHC Differential 33.5 pg (28.0-36.0) 09/20/16 05:00 RDW 15.5 % (11.5-20.0) 09/20/16 05:00 Plt Count 216 Th/cmm (150-400) 09/20/16 05:00 MPV 8.5 fl 09/20/16 05:00 Neutrophils % 80.2 % (40.0-80.0) H 09/17/16 22:19 Band Neutrophils % 6 % (0-10) 09/20/16 05:00 Lymphocytes % 12.5 % (20.0-50.0) L 09/17/16 22:19 Monocytes % 3.7 % (2.0-10.0) 09/17/16 22:19 Eosinophils % 1.1 % (0.0-5.0) 09/17/16 22:19 Basophils % 2.5 % (0.0-2.0) H 09/17/16 22:19 Neutrophils (Manual) 88 % (40-80) H 09/20/16 05:00 Lymphocytes 4 % (20-50) L 09/20/16 05:00 Monocytes 2 % (2-10) 09/20/16 05:00 Eosinophils 0 % (0-5) 09/20/16 05:00 Basophils 0 % (0-3) 09/20/16 05:00 Platelet Estimate ADEQUATE (NORMAL) 09/20/16 05:00 Platelet Morphology NORMAL (NORMAL) 09/20/16 05:00 RBC Morph Micro Appear NORMAL (NORMAL) 09/20/16 05:00 PT 11.0 SECONDS (9.5-11.5) 09/17/16 22:19 INR 1.06 (0.5-1.4) 09/17/16 22:19 PTT (Actin FS) 25.3 SECONDS (26.0-38.0) L 09/17/16 22:19 D-Dimer 1280 ng/mL (100-400) H 09/17/16 22:19 Specimen Source Arterial 09/20/16 09:33 Sample Site Left Radial 09/20/16 09:33 pH 7.45 (7.35-7.45) 09/20/16 09:33 pCO2 37.0 mmHg (35.0-45.0) 09/20/16 09:33 pO2 77.0 mmHg (80.0-100.0) L 09/20/16 09:33 HCO3 26.3 mEq/L (20.0-26.0) H 09/20/16 09:33 Base Excess 1.8 mEq/L (-3.0-3.0) 09/20/16 09:33 O2 Saturation 96.0 % (92.0-100.0) 09/20/16 09:33 Adebayo Test Positive 09/20/16 09:33 Vent Rate 12 09/18/16 15:24 Inspired O2 28 09/20/16 09:33 Tidal Volume 550 09/18/16 15:24 PEEP NA 09/18/16 15:24 Pressure (ins/psv/peep) NA 09/18/16 15:24 Critical Value PING 09/20/16 09:33 Sodium 137 mEq/L (136-145) 09/20/16 05:00 Potassium 3.4 mEq/L (3.5-5.1) L 09/20/16 05:00 Chloride 108 mEq/L (98-107) H 09/20/16 05:00 Carbon Dioxide 24.3 mEq/L (21.0-31.0) 09/20/16 05:00 Anion Gap 8.1 (7.0-16.0) 09/20/16 05:00 BUN 19 mg/dL (7-25) 09/20/16 05:00 Creatinine 0.9 mg/dL (0.7-1.3) 09/20/16 05:00 Est GFR ( Amer) TNP 09/20/16 05:00 Est GFR (Non-Af Amer) TNP 09/20/16 05:00 BUN/Creatinine Ratio 21.1 09/20/16 05:00 Glucose 164 mg/dL (70-105) H 09/20/16 05:00 Hemoglobin A1c % 5.3 % (4.0-6.0) 09/18/16 05:08 Whole Bld Lactic Acid 3.35 mmol/L (0.60-1.99) H* 09/18/16 15:38 Calcium 8.7 mg/dL (8.6-10.3) 09/20/16 05:00 Total Bilirubin 0.6 mg/dL (0.3-1.0) 09/17/16 22:19 AST 18 U/L (13-39) 09/17/16 22:19 ALT 10 U/L (7-52) 09/17/16 22:19 Alkaline Phosphatase 103 U/L (34-104) 09/17/16 22:19 Creatine Kinase 73 U/L (30-223) 09/17/16 22:19 Troponin I 0.02 ng/mL (0.01-0.05) 09/17/16 22:19 B-Natriuretic Peptide 76.5 pg/mL (5.0-100.0) 09/17/16 22:19 Total Protein 7.5 gm/dL (6.0-8.3) 09/17/16 22:19 Albumin 4.1 gm/dL (4.2-5.5) L 09/17/16 22:19 Globulin 3.4 gm/dL 09/17/16 22:19 Albumin/Globulin Ratio 1.2 (1.0-1.8) 09/17/16 22:19 Triglycerides 83 mg/dL (<150) 09/17/16 22:19 Cholesterol 167 mg/dL (<200) 09/17/16 22:19 LDL Cholesterol Direct 120 mg/dL (75-193) 09/17/16 22:19 HDL Cholesterol 46 mg/dL (23-92) 09/17/16 22:19 Urine Source CLEAN C 09/18/16 19:00 Urine Color YELLOW 09/18/16 19:00 Urine Clarity TURBID (CLEAR) 09/18/16 19:00 Urine pH 5.5 (4.6 - 8.0) 09/18/16 19:00 Ur Specific [place] 1.025 (1.005-1.030) 09/18/16 19:00 Urine Protein TRACE mg/dL (NEGATIVE) 09/18/16 19:00 Urine Glucose (UA) NEGATIVE mg/dL (NEGATIVE) 09/18/16 19:00 Urine Ketones TRACE mg/dL (NEGATIVE) 09/18/16 19:00 Urine Blood TRACE (NEGATIVE) 09/18/16 19:00 Urine Nitrate NEGATIVE (NEGATIVE) 09/18/16 19:00 Urine Bilirubin NEGATIVE (NEGATIVE) 09/18/16 19:00 Urine Urobilinogen 0.2 E.U./dL (0.2 - 1.0) 09/18/16 19:00 Ur Leukocyte Esterase NEGATIVE (NEGATIVE) 09/18/16 19:00 Urine RBC 2-5 /hpf (0-5) H 09/18/16 19:00 Urine WBC 2-5 /hpf (0-5) H 09/18/16 19:00 Ur Epithelial Cells FEW /lpf (FEW) 09/18/16 19:00 Urine Bacteria FEW /hpf (NONE SEEN) 09/18/16 19:00 Vancomycin Trough 19.7 ug/mL (10-20) 09/20/16 09:00 - Physical Exam Vitals and I&O: Vital Signs Temp 97.0 F 09/21/16 04:06 Pulse 65 09/21/16 04:06 Resp 18 09/21/16 04:06 BP 157/70 09/21/16 04:06 Pulse Ox 98 09/21/16 04:06 Intake & Output 09/20/16 09/21/16 09/21/16 18:59 06:59 18:59 Intake Total 612.5 800 Balance 612.5 800 Weight (lbs) 63.957 kg Intake: Intake, IV Amount 612.5 550 Levofloxacin 500mg/100mL 100 500 mg In 100 ml @ 100 mls/hr IV Q24HR [facility] Rx#: [id number] Piperacillin Sodium/ 100 200 Tazobact 4.5 gm In Sodium Chloride 0.9% 100 ml @ 100 mls/hr IV Q8HR [facility] Rx #:[id number] Vancomycin HCl 1 gm In 250 250 Sodium Chloride 0.9% 250 ml @ 165 mls/hr IV Q12H [facility] Rx#:[id number] Oral 250 Other: # Voids 2 # Bowel Movements 0 Active Medications: Current Medications Acetaminophen (Tylenol) 650 mg PO Q4HR PRN PRN Reason: Pain (Mild) Stop: 11/16/16 23:27 Al Hydrox/Mg Hydrox/Simethicone (Maalox) 30 ml PO Q4HR PRN PRN Reason: GI DISTRESS Stop: 11/16/16 23:27 Albuterol Sulfate (Albuterol 2.5mg/3ml Neb Ud) 2.5 mg HHN Q4H [facility] Stop: 11/17/16 15:14 Last Admin: 09/21/16 03:35 Dose: 2.5 mg Amlodipine Besylate (Norvasc) 5 mg PO DAILY [facility] Stop: 11/17/16 08:59 Last Admin: 09/20/16 10:03 Dose: 5 mg Bisacodyl (Dulcolax 10 Mg Supp) 10 mg RC DAILY PRN PRN Reason: Constipation Stop: 11/16/16 23:27 Calcium/Vitamin D (Oscal W/Vitamin D) 1 tab PO DAILY [facility] Stop: 11/17/16 08:59 Last Admin: 09/20/16 10:02 Dose: 1 tab Docusate Sodium (Colace) 100 mg PO BID [facility] Stop: 11/17/16 08:59 Last Admin: 09/20/16 17:16 Dose: 100 mg Donepezil HCl (Aricept) 10 mg PO HS [facility] Stop: 11/17/16 20:59 Last Admin: 09/20/16 20:42 Dose: 10 mg Heparin Sodium (Porcine) (Heparin) 5,000 units SUBQ Q12HR [facility] Stop: 11/17/16 20:59 Last Admin: 09/20/16 20:42 Dose: 5,000 units Levofloxacin (Levaquin Pb) 500 mg in 100 mls @ 100 mls/hr IV Q24HR [facility] Stop: 11/17/16 22:59 Last Infusion: 09/21/16 00:40 Dose: Infused Sodium Chloride (Nacl 0.9%) 1,000 mls @ 100 mls/hr IV .Q10H [facility] Stop: 11/17/16 03:22 Last Admin: 09/20/16 06:17 Dose: 100 mls/hr Piperacillin Sod/Tazobactam (Sod 4.5 gm/ Sodium Chloride) 100 mls @ 100 mls/hr IV Q8HR [facility] Stop: 11/17/16 04:59 Last Infusion: 09/21/16 05:35 Dose: Infused Vancomycin HCl 1 gm/ Sodium (Chloride) 250 mls @ 165 mls/hr IV Q12H [facility] Stop: 11/17/16 09:59 Last Infusion: 09/20/16 23:40 Dose: Infused Lactobacillus Rhamnosus (Culturelle) 1 each PO DAILY [facility] Stop: 11/18/16 08:59 Last Admin: 09/20/16 09:59 Dose: 1 each Lorazepam (Ativan) 1 mg IVP Q4HR PRN; Protocol PRN Reason: Agitation Stop: 11/17/16 15:11 Magnesium Hydroxide (Milk Of Magnesia) 30 ml PO HS PRN PRN Reason: Constipation Stop: 11/16/16 23:27 Memantine (Namenda) 10 mg PO BID [facility] Stop: 11/17/16 08:59 Last Admin: 09/20/16 17:16 Dose: 10 mg Methylprednisolone Sodium Succinate (Solu-Medrol) 40 mg IVP Q12HR [facility] Stop: 11/18/16 20:59 Last Admin: 09/20/16 20:42 Dose: 40 mg Miscellaneous (Probiotic Screen) 1 ea PRN PRN PRN Reason: PROTOCOL Stop: 11/17/16 10:57 Miscellaneous (Vte Chemical Prophylaxis Screen/ Admission) 1 ea PRN PRN PRN Reason: PROTOCOL Stop: 11/17/16 11:29 Miscellaneous (Vancomycin Iv Per Pharmacy) 1 ea MC PRN [facility] Stop: 11/17/16 12:14 Pantoprazole Sodium (Protonix) 40 mg PO QDAC [facility] Stop: 11/17/16 07:29 Last Admin: 09/21/16 06:48 Dose: 40 mg Paroxetine HCl (Paxil) 10 mg PO DAILY [facility] PRN Reason: Protocol Stop: 11/17/16 08:59 Last Admin: 09/20/16 10:02 Dose: 10 mg Sodium Phosphate (Fleet Enema) 135 ml RC Q48HR PRN PRN Reason: Constipation Stop: 11/16/16 23:27 Thiamine HCl (Vitamin B1) 100 mg PO DAILY [facility] Stop: 11/17/16 08:59 Last Admin: 09/20/16 10:02 Dose: 100 mg General: No acute distress HEENT: Atraumatic Cardiovascular: Regular rate, Normal S1, Normal S2 - Procedures Procedures: Procedures Procedure Code Date GROUP PSYCHOTHERAPY 56860 06/14/15 GROUP PSYCHOTHERAPY [id number] 06/14/15 INSERT EMERGENCY AIRWAY 92341 09/17/16 INSERTION OF ENDOTRACHEAL AIRWAY INTO [facility], VIA OPENING [id number] 09/17/16 RESPIRATORY VENTILATION, 24-96 CONSECUTIVE HOURS [id number] 09/17/16 VENT MGMT INPAT INIT DAY 44255 09/17/16 VENT MGMT INPAT SUBQ DAY 58852 09/17/16 Assessment/Plan - Problem List Patient Problems: All Active Problems Dementia (Acute) F03.90 INAPPROPRIATE TOUCHING (Acute 06/14/15) Inappropriate behavior (Acute) F99 - Plan Plan: monitor vitals/diet labs f/up consultants
[2016-09-21] MEDS: methylPREDNISolone SS 40 mg Vial IVP SCH ×2 (08:18→20:26)
[2016-09-21] MEDS: Multivitamin w/ Minerals Tab PO SCH (08:18)
[2016-09-21] MEDS: Lactobacillus Rhamnosus 10 Billion CFU Capsule PO SCH (08:18)
[2016-09-21] MEDS: Calcium Carb/Vit D 500 mg/200 U Tab PO SCH (08:18)
[2016-09-21] MEDS: Sodium Chloride 0.9% 1,000 ML IV SCH ×2 (08:19→19:00)
[2016-09-21] MEDS: Levofloxacin 500mg/100mL 500 MG/100 ML BAG IV SCH (23:26)
--- NOTE | 2016-09-21 23:58 | Infectious Disease Prog Note ---
Infectious Disease Subjective - Review of Systems Service Date: 09/21/16 Subjective: No change,no fever. Infectious Disease Objective - Results Result Diagrams: 09/20/16 05:00 09/20/16 05:00 Recent Labs: Laboratory Last Values WBC 15.8 Th/cmm (4.8-10.8) H 09/20/16 05:00 RBC 4.05 Mil/cmm (3.80-5.80) 09/20/16 05:00 Hgb 12.5 gm/dL (12.6-17.4) L 09/20/16 05:00 Hct 37.3 % (39.0-49.0) L 09/20/16 05:00 MCV 92.2 fl (80-99) 09/20/16 05:00 MCH 30.9 pg (27.0-31.0) 09/20/16 05:00 MCHC Differential 33.5 pg (28.0-36.0) 09/20/16 05:00 RDW 15.5 % (11.5-20.0) 09/20/16 05:00 Plt Count 216 Th/cmm (150-400) 09/20/16 05:00 MPV 8.5 fl 09/20/16 05:00 Neutrophils % 80.2 % (40.0-80.0) H 09/17/16 22:19 Band Neutrophils % 6 % (0-10) 09/20/16 05:00 Lymphocytes % 12.5 % (20.0-50.0) L 09/17/16 22:19 Monocytes % 3.7 % (2.0-10.0) 09/17/16 22:19 Eosinophils % 1.1 % (0.0-5.0) 09/17/16 22:19 Basophils % 2.5 % (0.0-2.0) H 09/17/16 22:19 Neutrophils (Manual) 88 % (40-80) H 09/20/16 05:00 Lymphocytes 4 % (20-50) L 09/20/16 05:00 Monocytes 2 % (2-10) 09/20/16 05:00 Eosinophils 0 % (0-5) 09/20/16 05:00 Basophils 0 % (0-3) 09/20/16 05:00 Platelet Estimate ADEQUATE (NORMAL) 09/20/16 05:00 Platelet Morphology NORMAL (NORMAL) 09/20/16 05:00 RBC Morph Micro Appear NORMAL (NORMAL) 09/20/16 05:00 PT 11.0 SECONDS (9.5-11.5) 09/17/16 22:19 INR 1.06 (0.5-1.4) 09/17/16 22:19 PTT (Actin FS) 25.3 SECONDS (26.0-38.0) L 09/17/16 22:19 D-Dimer 1280 ng/mL (100-400) H 09/17/16 22:19 Specimen Source Arterial 09/20/16 09:33 Sample Site Left Radial 09/20/16 09:33 pH 7.45 (7.35-7.45) 09/20/16 09:33 pCO2 37.0 mmHg (35.0-45.0) 09/20/16 09:33 pO2 77.0 mmHg (80.0-100.0) L 09/20/16 09:33 HCO3 26.3 mEq/L (20.0-26.0) H 09/20/16 09:33 Base Excess 1.8 mEq/L (-3.0-3.0) 09/20/16 09:33 O2 Saturation 96.0 % (92.0-100.0) 09/20/16 09:33 Adebayo Test Positive 09/20/16 09:33 Vent Rate 12 09/18/16 15:24 Inspired O2 28 09/20/16 09:33 Tidal Volume 550 09/18/16 15:24 PEEP NA 09/18/16 15:24 Pressure (ins/psv/peep) NA 09/18/16 15:24 Critical Value PING 09/20/16 09:33 Sodium 137 mEq/L (136-145) 09/20/16 05:00 Potassium 3.4 mEq/L (3.5-5.1) L 09/20/16 05:00 Chloride 108 mEq/L (98-107) H 09/20/16 05:00 Carbon Dioxide 24.3 mEq/L (21.0-31.0) 09/20/16 05:00 Anion Gap 8.1 (7.0-16.0) 09/20/16 05:00 BUN 19 mg/dL (7-25) 09/20/16 05:00 Creatinine 0.9 mg/dL (0.7-1.3) 09/20/16 05:00 Est GFR ( Amer) TNP 09/20/16 05:00 Est GFR (Non-Af Amer) TNP 09/20/16 05:00 BUN/Creatinine Ratio 21.1 09/20/16 05:00 Glucose 164 mg/dL (70-105) H 09/20/16 05:00 Hemoglobin A1c % 5.3 % (4.0-6.0) 09/18/16 05:08 Whole Bld Lactic Acid 3.35 mmol/L (0.60-1.99) H* 09/18/16 15:38 Calcium 8.7 mg/dL (8.6-10.3) 09/20/16 05:00 Total Bilirubin 0.6 mg/dL (0.3-1.0) 09/17/16 22:19 AST 18 U/L (13-39) 09/17/16 22:19 ALT 10 U/L (7-52) 09/17/16 22:19 Alkaline Phosphatase 103 U/L (34-104) 09/17/16 22:19 Creatine Kinase 73 U/L (30-223) 09/17/16 22:19 Troponin I 0.02 ng/mL (0.01-0.05) 09/17/16 22:19 B-Natriuretic Peptide 76.5 pg/mL (5.0-100.0) 09/17/16 22:19 Total Protein 7.5 gm/dL (6.0-8.3) 09/17/16 22:19 Albumin 4.1 gm/dL (4.2-5.5) L 09/17/16 22:19 Globulin 3.4 gm/dL 09/17/16 22:19 Albumin/Globulin Ratio 1.2 (1.0-1.8) 09/17/16 22:19 Triglycerides 83 mg/dL (<150) 09/17/16 22:19 Cholesterol 167 mg/dL (<200) 09/17/16 22:19 LDL Cholesterol Direct 120 mg/dL (75-193) 09/17/16 22:19 HDL Cholesterol 46 mg/dL (23-92) 09/17/16 22:19 Urine Source CLEAN C 09/18/16 19:00 Urine Color YELLOW 09/18/16 19:00 Urine Clarity TURBID (CLEAR) 09/18/16 19:00 Urine pH 5.5 (4.6 - 8.0) 09/18/16 19:00 Ur Specific [place] 1.025 (1.005-1.030) 09/18/16 19:00 Urine Protein TRACE mg/dL (NEGATIVE) 09/18/16 19:00 Urine Glucose (UA) NEGATIVE mg/dL (NEGATIVE) 09/18/16 19:00 Urine Ketones TRACE mg/dL (NEGATIVE) 09/18/16 19:00 Urine Blood TRACE (NEGATIVE) 09/18/16 19:00 Urine Nitrate NEGATIVE (NEGATIVE) 09/18/16 19:00 Urine Bilirubin NEGATIVE (NEGATIVE) 09/18/16 19:00 Urine Urobilinogen 0.2 E.U./dL (0.2 - 1.0) 09/18/16 19:00 Ur Leukocyte Esterase NEGATIVE (NEGATIVE) 09/18/16 19:00 Urine RBC 2-5 /hpf (0-5) H 09/18/16 19:00 Urine WBC 2-5 /hpf (0-5) H 09/18/16 19:00 Ur Epithelial Cells FEW /lpf (FEW) 09/18/16 19:00 Urine Bacteria FEW /hpf (NONE SEEN) 09/18/16 19:00 Vancomycin Trough 20.7 ug/mL (10-20) H 09/21/16 09:06 - Physical Exam Vitals and I&O: Vital Signs Temp 98 F 09/21/16 23:54 Pulse 74 09/21/16 23:54 Resp 19 09/21/16 23:54 BP 135/68 09/21/16 23:54 Pulse Ox 98 09/21/16 23:54 Intake & Output 09/21/16 09/21/16 09/22/16 06:59 18:59 06:59 Intake Total 800 1850 350 Balance 800 1850 350 Weight (lbs) 63.957 kg 63.957 kg Intake: Intake, IV Amount 550 1350 350 Levofloxacin 500mg/100mL 100 500 mg In 100 ml @ 100 mls/hr IV Q24HR [facility] Rx#: [id number] Piperacillin Sodium/ 200 100 100 Tazobact 4.5 gm In Sodium Chloride 0.9% 100 ml @ 100 mls/hr IV Q8HR [facility] Rx #:[id number] Sodium Chloride 0.9% 1, 1000 000 ml @ 100 mls/hr IV . Q10H [facility] Rx#:[id number] Vancomycin HCl 0.75 gm In 250 250 Sodium Chloride 0.9% 250 ml @ 165 mls/hr IV Q12HR @1000,2200 [facility] Rx#: [id number] Vancomycin HCl 1 gm In 250 Sodium Chloride 0.9% 250 ml @ 165 mls/hr IV Q12H [facility] Rx#:[id number] Oral 250 500 Other: # Voids 2 2 # Bowel Movements 0 0 Active Medications: Current Medications Acetaminophen (Tylenol) 650 mg PO Q4HR PRN PRN Reason: Pain (Mild) Stop: 11/16/16 23:27 Al Hydrox/Mg Hydrox/Simethicone (Maalox) 30 ml PO Q4HR PRN PRN Reason: GI DISTRESS Stop: 11/16/16 23:27 Albuterol Sulfate (Albuterol 2.5mg/3ml Neb Ud) 2.5 mg HHN Q6HRT [facility] Stop: 11/20/16 18:59 Last Admin: 09/21/16 19:06 Dose: 2.5 mg Amlodipine Besylate (Norvasc) 5 mg PO DAILY [facility] Stop: 11/17/16 08:59 Last Admin: 09/21/16 08:18 Dose: 5 mg Bisacodyl (Dulcolax 10 Mg Supp) 10 mg RC DAILY PRN PRN Reason: Constipation Stop: 11/16/16 23:27 Calcium/Vitamin D (Oscal W/Vitamin D) 1 tab PO DAILY [facility] Stop: 11/17/16 08:59 Last Admin: 09/21/16 08:18 Dose: 1 tab Docusate Sodium (Colace) 100 mg PO BID [facility] Stop: 11/17/16 08:59 Last Admin: 09/21/16 17:13 Dose: 100 mg Donepezil HCl (Aricept) 10 mg PO HS [facility] Stop: 11/17/16 20:59 Last Admin: 09/21/16 21:09 Dose: 10 mg Heparin Sodium (Porcine) (Heparin) 5,000 units SUBQ Q12HR [facility] Stop: 11/17/16 20:59 Last Admin: 09/21/16 20:26 Dose: 5,000 units Levofloxacin (Levaquin Pb) 500 mg in 100 mls @ 100 mls/hr IV Q24HR [facility] Stop: 11/17/16 22:59 Last Admin: 09/21/16 23:26 Dose: 100 mls/hr Sodium Chloride (Nacl 0.9%) 1,000 mls @ 100 mls/hr IV .Q10H [facility] Stop: 11/17/16 03:22 Last Admin: 09/21/16 19:00 Dose: 100 mls/hr Piperacillin Sod/Tazobactam (Sod 4.5 gm/ Sodium Chloride) 100 mls @ 100 mls/hr IV Q8HR [facility] Stop: 11/17/16 04:59 Last Infusion: 09/21/16 21:24 Dose: Infused Vancomycin HCl 0.75 gm/ Sodium (Chloride) 250 mls @ 165 mls/hr IV Q12HR@1000, 2200 [facility] Stop: 11/20/16 09:59 Last Infusion: 09/21/16 23:07 Dose: Infused Lactobacillus Rhamnosus (Culturelle) 1 each PO DAILY [facility] Stop: 11/18/16 08:59 Last Admin: 09/21/16 08:18 Dose: 1 each Lorazepam (Ativan) 1 mg IVP Q4HR PRN; Protocol PRN Reason: Agitation Stop: 11/17/16 15:11 Magnesium Hydroxide (Milk Of Magnesia) 30 ml PO HS PRN PRN Reason: Constipation Stop: 11/16/16 23:27 Memantine (Namenda) 10 mg PO BID [facility] Stop: 11/17/16 08:59 Last Admin: 09/21/16 17:13 Dose: 10 mg Methylprednisolone Sodium Succinate (Solu-Medrol) 40 mg IVP Q12HR [facility] Stop: 11/18/16 20:59 Last Admin: 09/21/16 20:26 Dose: 40 mg Miscellaneous (Probiotic Screen) 1 ea MC PRN PRN PRN Reason: PROTOCOL Stop: 11/17/16 10:57 Miscellaneous (Vte Chemical Prophylaxis Screen/ Admission) 1 ea MC PRN PRN PRN Reason: PROTOCOL Stop: 11/17/16 11:29 Miscellaneous (Vancomycin Iv Per Pharmacy) 1 ea MC PRN [facility] Stop: 11/17/16 12:14 Pantoprazole Sodium (Protonix) 40 mg PO QDAC [facility] Stop: 11/17/16 07:29 Last Admin: 09/21/16 06:48 Dose: 40 mg Paroxetine HCl (Paxil) 10 mg PO DAILY [facility] PRN Reason: Protocol Stop: 11/17/16 08:59 Last Admin: 09/21/16 08:18 Dose: 10 mg Sodium Phosphate (Fleet Enema) 135 ml RC Q48HR PRN PRN Reason: Constipation Stop: 11/16/16 23:27 Thiamine HCl (Vitamin B1) 100 mg PO DAILY [facility] Stop: 11/17/16 08:59 Last Admin: 09/21/16 08:18 Dose: 100 mg General: no acute distress, well developed, well nourished HEENT: atraumatic, PERRLA, EOMI, moist mucous membrane, no normocephalic Neck: supple, no thyromegaly, no lymphadenopathy, no rigid, no lines, no tracheostomy Cardiovascular: S1S2, regular Lungs: clear to auscultation bilaterally, clear to percussion Abdomen: soft, bowel sounds, no tender, no distended Extremities: no cyanosis, no clubbing, no edema Neurological: awake, alert Skin: intact - Procedures Procedures: Procedures Procedure Code Date GROUP PSYCHOTHERAPY 06376 06/14/15 GROUP PSYCHOTHERAPY GZHZZZZ 06/14/15 INSERT EMERGENCY AIRWAY 82434 09/17/16 INSERTION OF ENDOTRACHEAL AIRWAY INTO [facility], VIA OPENING [id number] 09/17/16 RESPIRATORY VENTILATION, 24-96 CONSECUTIVE HOURS [id number] 09/17/16 VENT MGMT INPAT INIT DAY 34846 09/17/16 VENT MGMT INPAT SUBQ DAY 59507 09/17/16 Infectious Disease Assmt/Plan - Problem List Patient Problems: All Active Problems Dementia (Acute) F03.90 INAPPROPRIATE TOUCHING (Acute 06/14/15) Inappropriate behavior (Acute) F99 - Assessment Assessment: 1. Sepsis. Severe sepsis. Lactic acidemia. 2. Pneumonia. sputum has grown MRSA. 3. 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 4. Vent-dependent respiratory failure, acute. 5. Hypertension. Plan: Will continue vancomycin IV and Levaquin, and dc zosyn.
[2016-09-22] MEDS: Albuterol Nebulizer 2.5mg/3mL HHN SCH ×4 (01:53→19:34)
[2016-09-22] MEDS: Sodium Chloride 0.9% 1,000 ML IV SCH ×2 (05:04→21:22)
[2016-09-22 05:54] LABS: HEMATOCRIT 39.9 % (39.0-49.0); HEMOGLOBIN 13.4 gm/dL (12.6-17.4); MEAN CELL VOLUME 91.8 fl (80-99); MEAN CORPUSCULAR HEMOGLOBIN 30.8 pg (27.0-31.0); MEAN CORPUSCULAR HGB CONC 33.5 pg (28.0-36.0); MEAN PLATELET VOLUME 8.5 fl; PLATELET COUNT 252 Th/cmm (150-400); RED BLOOD COUNT 4.34 Mil/cmm (3.80-5.80); RED CELL DISTRIBUTION WIDTH 15.2 % (11.5-20.0); WHITE BLOOD COUNT 9.4 Th/cmm (4.8-10.8)
[2016-09-22 06:11] LABS: ALB/GLOB RATIO 1.1 (1.0-1.8); ALKALINE PHOSPHATASE 51 U/L (34-104); ANION GAP 7.5 (7.0-16.0); BILIRUBIN,TOTAL 0.5 mg/dL (0.3-1.0); BUN - UREA NITROGEN 21 mg/dL (7-25); BUN/CREATININE RATIO 23.3; CALCIUM SERUM 8.8 mg/dL (8.6-10.3); CARBON DIOXIDE 28.9 mEq/L (21.0-31.0); CHLORIDE 104 mEq/L (98-107); CREATININE - SERUM 0.9 mg/dL (0.7-1.3); GLUCOSE 139 mg/dL (70-105); POTASSIUM SERUM 3.4 mEq/L (3.5-5.1); SGOT 18 U/L (13-39); SGPT/ALT 11 U/L (7-52); SODIUM SERUM 137 mEq/L (136-145)
[2016-09-22] MEDS: Pantoprazole 40 mg EC Tab PO SCH (06:33)
[2016-09-22 06:58] LABS: TOTAL CELLS COUNTED 100
[2016-09-22 07:01] LABS: BAND NEUTROPHILE 2 % (0-10); NEUTROPHILS 84 % (40-80); PLATELET ESTIMATE ADEQUATE (NORMAL)
[2016-09-22] MEDS: methylPREDNISolone SS 40 mg Vial IVP SCH ×2 (09:20→21:23)
[2016-09-22] MEDS: Multivitamin w/ Minerals Tab PO SCH (09:20)
[2016-09-22] MEDS: Calcium Carb/Vit D 500 mg/200 U Tab PO SCH (09:20)
[2016-09-22] MEDS: Lactobacillus Rhamnosus 10 Billion CFU Capsule PO SCH (09:20)
--- NOTE | 2016-09-22 10:31 | General Progress Note ---
Subjective - Review of Systems Events since last encounter: no change , no fever Objective - Results Result Diagrams: 09/22/16 05:25 09/22/16 05:25 Recent Labs: Laboratory Last Values WBC 9.4 Th/cmm (4.8-10.8) D 09/22/16 05:25 RBC 4.34 Mil/cmm (3.80-5.80) 09/22/16 05:25 Hgb 13.4 gm/dL (12.6-17.4) 09/22/16 05:25 Hct 39.9 % (39.0-49.0) 09/22/16 05:25 MCV 91.8 fl (80-99) 09/22/16 05:25 MCH 30.8 pg (27.0-31.0) 09/22/16 05:25 MCHC Differential 33.5 pg (28.0-36.0) 09/22/16 05:25 RDW 15.2 % (11.5-20.0) 09/22/16 05:25 Plt Count 252 Th/cmm (150-400) 09/22/16 05:25 MPV 8.5 fl 09/22/16 05:25 Neutrophils % 80.2 % (40.0-80.0) H 09/17/16 22:19 Band Neutrophils % 2 % (0-10) 09/22/16 05:25 Lymphocytes % 12.5 % (20.0-50.0) L 09/17/16 22:19 Monocytes % 3.7 % (2.0-10.0) 09/17/16 22:19 Eosinophils % 1.1 % (0.0-5.0) 09/17/16 22:19 Basophils % 2.5 % (0.0-2.0) H 09/17/16 22:19 Neutrophils (Manual) 84 % (40-80) H 09/22/16 05:25 Lymphocytes 7 % (20-50) L 09/22/16 05:25 Monocytes 7 % (2-10) 09/22/16 05:25 Eosinophils 0 % (0-5) 09/20/16 05:00 Basophils 0 % (0-3) 09/20/16 05:00 Platelet Estimate ADEQUATE (NORMAL) 09/22/16 05:25 Platelet Morphology NORMAL (NORMAL) 09/20/16 05:00 RBC Morph Micro Appear NORMAL (NORMAL) 09/20/16 05:00 PT 11.0 SECONDS (9.5-11.5) 09/17/16 22:19 INR 1.06 (0.5-1.4) 09/17/16 22:19 PTT (Actin FS) 25.3 SECONDS (26.0-38.0) L 09/17/16 22:19 D-Dimer 1280 ng/mL (100-400) H 09/17/16 22:19 Specimen Source Arterial 09/20/16 09:33 Sample Site Left Radial 09/20/16 09:33 pH 7.45 (7.35-7.45) 09/20/16 09:33 pCO2 37.0 mmHg (35.0-45.0) 09/20/16 09:33 pO2 77.0 mmHg (80.0-100.0) L 09/20/16 09:33 HCO3 26.3 mEq/L (20.0-26.0) H 09/20/16 09:33 Base Excess 1.8 mEq/L (-3.0-3.0) 09/20/16 09:33 O2 Saturation 96.0 % (92.0-100.0) 09/20/16 09:33 Adebayo Test Positive 09/20/16 09:33 Vent Rate 12 09/18/16 15:24 Inspired O2 28 09/20/16 09:33 Tidal Volume 550 09/18/16 15:24 PEEP NA 09/18/16 15:24 Pressure (ins/psv/peep) NA 09/18/16 15:24 Critical Value PING 09/20/16 09:33 Sodium 137 mEq/L (136-145) 09/22/16 05:25 Potassium 3.4 mEq/L (3.5-5.1) L 09/22/16 05:25 Chloride 104 mEq/L (98-107) 09/22/16 05:25 Carbon Dioxide 28.9 mEq/L (21.0-31.0) 09/22/16 05:25 Anion Gap 7.5 (7.0-16.0) 09/22/16 05:25 BUN 21 mg/dL (7-25) 09/22/16 05:25 Creatinine 0.9 mg/dL (0.7-1.3) 09/22/16 05:25 Est GFR ( Amer) TNP 09/22/16 05:25 Est GFR (Non-Af Amer) TNP 09/22/16 05:25 BUN/Creatinine Ratio 23.3 09/22/16 05:25 Glucose 139 mg/dL (70-105) H 09/22/16 05:25 Hemoglobin A1c % 5.3 % (4.0-6.0) 09/18/16 05:08 Whole Bld Lactic Acid 3.35 mmol/L (0.60-1.99) H* 09/18/16 15:38 Calcium 8.8 mg/dL (8.6-10.3) 09/22/16 05:25 Total Bilirubin 0.5 mg/dL (0.3-1.0) 09/22/16 05:25 AST 18 U/L (13-39) 09/22/16 05:25 ALT 11 U/L (7-52) 09/22/16 05:25 Alkaline Phosphatase 51 U/L (34-104) 09/22/16 05:25 Creatine Kinase 73 U/L (30-223) 09/17/16 22:19 Troponin I 0.02 ng/mL (0.01-0.05) 09/17/16 22:19 B-Natriuretic Peptide 76.5 pg/mL (5.0-100.0) 09/17/16 22:19 Total Protein 6.0 gm/dL (6.0-8.3) 09/22/16 05:25 Albumin 3.2 gm/dL (4.2-5.5) L 09/22/16 05:25 Globulin 2.8 gm/dL 09/22/16 05:25 Albumin/Globulin Ratio 1.1 (1.0-1.8) 09/22/16 05:25 Triglycerides 83 mg/dL (<150) 09/17/16 22:19 Cholesterol 167 mg/dL (<200) 09/17/16 22:19 LDL Cholesterol Direct 120 mg/dL (75-193) 09/17/16 22:19 HDL Cholesterol 46 mg/dL (23-92) 09/17/16 22:19 Urine Source CLEAN C 09/18/16 19:00 Urine Color YELLOW 09/18/16 19:00 Urine Clarity TURBID (CLEAR) 09/18/16 19:00 Urine pH 5.5 (4.6 - 8.0) 09/18/16 19:00 Ur Specific [place] 1.025 (1.005-1.030) 09/18/16 19:00 Urine Protein TRACE mg/dL (NEGATIVE) 09/18/16 19:00 Urine Glucose (UA) NEGATIVE mg/dL (NEGATIVE) 09/18/16 19:00 Urine Ketones TRACE mg/dL (NEGATIVE) 09/18/16 19:00 Urine Blood TRACE (NEGATIVE) 09/18/16 19:00 Urine Nitrate NEGATIVE (NEGATIVE) 09/18/16 19:00 Urine Bilirubin NEGATIVE (NEGATIVE) 09/18/16 19:00 Urine Urobilinogen 0.2 E.U./dL (0.2 - 1.0) 09/18/16 19:00 Ur Leukocyte Esterase NEGATIVE (NEGATIVE) 09/18/16 19:00 Urine RBC 2-5 /hpf (0-5) H 09/18/16 19:00 Urine WBC 2-5 /hpf (0-5) H 09/18/16 19:00 Ur Epithelial Cells FEW /lpf (FEW) 09/18/16 19:00 Urine Bacteria FEW /hpf (NONE SEEN) 09/18/16 19:00 Vancomycin Trough 19.1 ug/mL (10-20) 09/22/16 09:00 - Physical Exam Vitals and I&O: Vital Signs Temp 97.2 F 09/22/16 07:29 Pulse 53 09/22/16 09:30 Resp 19 09/22/16 07:29 BP 148/73 09/22/16 09:30 Pulse Ox 99 09/22/16 07:29 Intake & Output 09/21/16 09/22/16 09/22/16 18:59 06:59 18:59 Intake Total 1850 1650 Balance 1850 1650 Weight (lbs) 63.957 kg 63.866 kg Intake: Intake, IV Amount 1350 1450 Levofloxacin 500mg/100mL 100 500 mg In 100 ml @ 100 mls/hr IV Q24HR [facility] Rx#: [id number] Piperacillin Sodium/ 100 100 Tazobact 4.5 gm In Sodium Chloride 0.9% 100 ml @ 100 mls/hr IV Q8HR [facility] Rx #:[id number] Sodium Chloride 0.9% 1, 1000 1000 000 ml @ 100 mls/hr IV . Q10H [facility] Rx#:[id number] Vancomycin HCl 0.75 gm In 250 250 Sodium Chloride 0.9% 250 ml @ 165 mls/hr IV Q12HR @1000,2200 [facility] Rx#: [id number] Oral 500 200 Other: # Voids 2 2 # Bowel Movements 0 1 Active Medications: Current Medications Acetaminophen (Tylenol) 650 mg PO Q4HR PRN PRN Reason: Pain (Mild) Stop: 11/16/16 23:27 Al Hydrox/Mg Hydrox/Simethicone (Maalox) 30 ml PO Q4HR PRN PRN Reason: GI DISTRESS Stop: 11/16/16 23:27 Albuterol Sulfate (Albuterol 2.5mg/3ml Neb Ud) 2.5 mg HHN Q6HRT [facility] Stop: 11/20/16 18:59 Last Admin: 09/22/16 06:48 Dose: 2.5 mg Amlodipine Besylate (Norvasc) 5 mg PO DAILY [facility] Stop: 11/17/16 08:59 Last Admin: 09/22/16 09:30 Dose: 5 mg Bisacodyl (Dulcolax 10 Mg Supp) 10 mg RC DAILY PRN PRN Reason: Constipation Stop: 11/16/16 23:27 Calcium/Vitamin D (Oscal W/Vitamin D) 1 tab PO DAILY [facility] Stop: 11/17/16 08:59 Last Admin: 09/22/16 09:20 Dose: 1 tab Docusate Sodium (Colace) 100 mg PO BID [facility] Stop: 11/17/16 08:59 Last Admin: 09/22/16 09:21 Dose: 100 mg Donepezil HCl (Aricept) 10 mg PO HS [facility] Stop: 11/17/16 20:59 Last Admin: 09/21/16 21:09 Dose: 10 mg Heparin Sodium (Porcine) (Heparin) 5,000 units SUBQ Q12HR [facility] Stop: 11/17/16 20:59 Last Admin: 09/22/16 09:20 Dose: 5,000 units Levofloxacin (Levaquin Pb) 500 mg in 100 mls @ 100 mls/hr IV Q24HR [facility] Stop: 11/17/16 22:59 Last Infusion: 09/22/16 00:26 Dose: Infused Sodium Chloride (Nacl 0.9%) 1,000 mls @ 100 mls/hr IV .Q10H [facility] Stop: 11/17/16 03:22 Last Admin: 09/22/16 05:04 Dose: 100 mls/hr Vancomycin HCl 0.75 gm/ Sodium (Chloride) 250 mls @ 165 mls/hr IV Q12HR@1000, 2200 [facility] Stop: 11/20/16 09:59 Last Admin: 09/22/16 09:19 Dose: 165 mls/hr Lactobacillus Rhamnosus (Culturelle) 1 each PO DAILY [facility] Stop: 11/18/16 08:59 Last Admin: 09/22/16 09:20 Dose: 1 each Lorazepam (Ativan) 1 mg IVP Q4HR PRN; Protocol PRN Reason: Agitation Stop: 11/17/16 15:11 Magnesium Hydroxide (Milk Of Magnesia) 30 ml PO HS PRN PRN Reason: Constipation Stop: 11/16/16 23:27 Memantine (Namenda) 10 mg PO BID [facility] Stop: 11/17/16 08:59 Last Admin: 09/22/16 09:20 Dose: 10 mg Methylprednisolone Sodium Succinate (Solu-Medrol) 40 mg IVP Q12HR [facility] Stop: 11/18/16 20:59 Last Admin: 09/22/16 09:20 Dose: 40 mg Miscellaneous (Probiotic Screen) 1 ea PRN PRN PRN Reason: PROTOCOL Stop: 11/17/16 10:57 Miscellaneous (Vte Chemical Prophylaxis Screen/ Admission) 1 ea PRN PRN PRN Reason: PROTOCOL Stop: 11/17/16 11:29 Miscellaneous (Vancomycin Iv Per Pharmacy) 1 ea PRN [facility] Stop: 11/17/16 12:14 Pantoprazole Sodium (Protonix) 40 mg PO QDAC [facility] Stop: 11/17/16 07:29 Last Admin: 09/22/16 06:33 Dose: 40 mg Paroxetine HCl (Paxil) 10 mg PO DAILY [facility] PRN Reason: Protocol Stop: 11/17/16 08:59 Last Admin: 09/22/16 09:20 Dose: 10 mg Sodium Phosphate (Fleet Enema) 135 ml RC Q48HR PRN PRN Reason: Constipation Stop: 11/16/16 23:27 Thiamine HCl (Vitamin B1) 100 mg PO DAILY [facility] Stop: 11/17/16 08:59 Last Admin: 09/22/16 09:20 Dose: 100 mg General: No acute distress HEENT: Atraumatic Cardiovascular: Regular rate, Normal S1, Normal S2 - Procedures Procedures: Procedures Procedure Code Date GROUP PSYCHOTHERAPY 01067 06/14/15 GROUP PSYCHOTHERAPY GZHZZZZ 06/14/15 INSERT EMERGENCY AIRWAY 40558 09/17/16 INSERTION OF ENDOTRACHEAL AIRWAY INTO [facility], VIA OPENING [id number] 09/17/16 RESPIRATORY VENTILATION, 24-96 CONSECUTIVE HOURS [id number] 09/17/16 VENT MGMT INPAT INIT DAY 62257 09/17/16 VENT MGMT INPAT SUBQ DAY 91923 09/17/16 Assessment/Plan - Problem List Patient Problems: All Active Problems Dementia (Acute) F03.90 INAPPROPRIATE TOUCHING (Acute 06/14/15) Inappropriate behavior (Acute) F99 - Plan Plan: monitor vitals/diet labs f/up consultants
[2016-09-22] MEDS ORDERED: Morphine Sulfate 2 mg/mL 1mL Syr IVP PRN ×2 (20:24→20:26)
--- NOTE | 2016-09-22 23:53 | Infectious Disease Prog Note ---
Infectious Disease Subjective - Review of Systems Service Date: 09/22/16 Subjective: No change,no fever. Infectious Disease Objective - Results Result Diagrams: 09/22/16 05:25 09/22/16 05:25 Recent Labs: Laboratory Last Values WBC 9.4 Th/cmm (4.8-10.8) D 09/22/16 05:25 RBC 4.34 Mil/cmm (3.80-5.80) 09/22/16 05:25 Hgb 13.4 gm/dL (12.6-17.4) 09/22/16 05:25 Hct 39.9 % (39.0-49.0) 09/22/16 05:25 MCV 91.8 fl (80-99) 09/22/16 05:25 MCH 30.8 pg (27.0-31.0) 09/22/16 05:25 MCHC Differential 33.5 pg (28.0-36.0) 09/22/16 05:25 RDW 15.2 % (11.5-20.0) 09/22/16 05:25 Plt Count 252 Th/cmm (150-400) 09/22/16 05:25 MPV 8.5 fl 09/22/16 05:25 Neutrophils % 80.2 % (40.0-80.0) H 09/17/16 22:19 Band Neutrophils % 2 % (0-10) 09/22/16 05:25 Lymphocytes % 12.5 % (20.0-50.0) L 09/17/16 22:19 Monocytes % 3.7 % (2.0-10.0) 09/17/16 22:19 Eosinophils % 1.1 % (0.0-5.0) 09/17/16 22:19 Basophils % 2.5 % (0.0-2.0) H 09/17/16 22:19 Neutrophils (Manual) 84 % (40-80) H 09/22/16 05:25 Lymphocytes 7 % (20-50) L 09/22/16 05:25 Monocytes 7 % (2-10) 09/22/16 05:25 Eosinophils 0 % (0-5) 09/20/16 05:00 Basophils 0 % (0-3) 09/20/16 05:00 Platelet Estimate ADEQUATE (NORMAL) 09/22/16 05:25 Platelet Morphology NORMAL (NORMAL) 09/20/16 05:00 RBC Morph Micro Appear NORMAL (NORMAL) 09/20/16 05:00 PT 11.0 SECONDS (9.5-11.5) 09/17/16 22:19 INR 1.06 (0.5-1.4) 09/17/16 22:19 PTT (Actin FS) 25.3 SECONDS (26.0-38.0) L 09/17/16 22:19 D-Dimer 1280 ng/mL (100-400) H 09/17/16 22:19 Specimen Source Arterial 09/20/16 09:33 Sample Site Left Radial 09/20/16 09:33 pH 7.45 (7.35-7.45) 09/20/16 09:33 pCO2 37.0 mmHg (35.0-45.0) 09/20/16 09:33 pO2 77.0 mmHg (80.0-100.0) L 09/20/16 09:33 HCO3 26.3 mEq/L (20.0-26.0) H 09/20/16 09:33 Base Excess 1.8 mEq/L (-3.0-3.0) 09/20/16 09:33 O2 Saturation 96.0 % (92.0-100.0) 09/20/16 09:33 Adebayo Test Positive 09/20/16 09:33 Vent Rate 12 09/18/16 15:24 Inspired O2 28 09/20/16 09:33 Tidal Volume 550 09/18/16 15:24 PEEP NA 09/18/16 15:24 Pressure (ins/psv/peep) NA 09/18/16 15:24 Critical Value PING 09/20/16 09:33 Sodium 137 mEq/L (136-145) 09/22/16 05:25 Potassium 3.4 mEq/L (3.5-5.1) L 09/22/16 05:25 Chloride 104 mEq/L (98-107) 09/22/16 05:25 Carbon Dioxide 28.9 mEq/L (21.0-31.0) 09/22/16 05:25 Anion Gap 7.5 (7.0-16.0) 09/22/16 05:25 BUN 21 mg/dL (7-25) 09/22/16 05:25 Creatinine 0.9 mg/dL (0.7-1.3) 09/22/16 05:25 Est GFR ( Amer) TNP 09/22/16 05:25 Est GFR (Non-Af Amer) TNP 09/22/16 05:25 BUN/Creatinine Ratio 23.3 09/22/16 05:25 Glucose 139 mg/dL (70-105) H 09/22/16 05:25 Hemoglobin A1c % 5.3 % (4.0-6.0) 09/18/16 05:08 Whole Bld Lactic Acid 3.35 mmol/L (0.60-1.99) H* 09/18/16 15:38 Calcium 8.8 mg/dL (8.6-10.3) 09/22/16 05:25 Total Bilirubin 0.5 mg/dL (0.3-1.0) 09/22/16 05:25 AST 18 U/L (13-39) 09/22/16 05:25 ALT 11 U/L (7-52) 09/22/16 05:25 Alkaline Phosphatase 51 U/L (34-104) 09/22/16 05:25 Creatine Kinase 73 U/L (30-223) 09/17/16 22:19 Troponin I 0.02 ng/mL (0.01-0.05) 09/17/16 22:19 B-Natriuretic Peptide 76.5 pg/mL (5.0-100.0) 09/17/16 22:19 Total Protein 6.0 gm/dL (6.0-8.3) 09/22/16 05:25 Albumin 3.2 gm/dL (4.2-5.5) L 09/22/16 05:25 Globulin 2.8 gm/dL 09/22/16 05:25 Albumin/Globulin Ratio 1.1 (1.0-1.8) 09/22/16 05:25 Triglycerides 83 mg/dL (<150) 09/17/16 22:19 Cholesterol 167 mg/dL (<200) 09/17/16 22:19 LDL Cholesterol Direct 120 mg/dL (75-193) 09/17/16 22:19 HDL Cholesterol 46 mg/dL (23-92) 09/17/16 22:19 Urine Source CLEAN C 09/18/16 19:00 Urine Color YELLOW 09/18/16 19:00 Urine Clarity TURBID (CLEAR) 09/18/16 19:00 Urine pH 5.5 (4.6 - 8.0) 09/18/16 19:00 Ur Specific [place] 1.025 (1.005-1.030) 09/18/16 19:00 Urine Protein TRACE mg/dL (NEGATIVE) 09/18/16 19:00 Urine Glucose (UA) NEGATIVE mg/dL (NEGATIVE) 09/18/16 19:00 Urine Ketones TRACE mg/dL (NEGATIVE) 09/18/16 19:00 Urine Blood TRACE (NEGATIVE) 09/18/16 19:00 Urine Nitrate NEGATIVE (NEGATIVE) 09/18/16 19:00 Urine Bilirubin NEGATIVE (NEGATIVE) 09/18/16 19:00 Urine Urobilinogen 0.2 E.U./dL (0.2 - 1.0) 09/18/16 19:00 Ur Leukocyte Esterase NEGATIVE (NEGATIVE) 09/18/16 19:00 Urine RBC 2-5 /hpf (0-5) H 09/18/16 19:00 Urine WBC 2-5 /hpf (0-5) H 09/18/16 19:00 Ur Epithelial Cells FEW /lpf (FEW) 09/18/16 19:00 Urine Bacteria FEW /hpf (NONE SEEN) 09/18/16 19:00 Vancomycin Trough 19.1 ug/mL (10-20) 09/22/16 09:00 - Physical Exam Vitals and I&O: Vital Signs Temp 98.6 F 09/22/16 20:00 Pulse 62 09/22/16 20:00 Resp 19 09/22/16 20:00 BP 134/72 09/22/16 20:00 Pulse Ox 96 09/22/16 20:00 Intake & Output 09/22/16 09/22/16 09/23/16 06:59 18:59 06:59 Intake Total 8941 857 5895 Balance 4515 964 4747 Weight (lbs) 63.866 kg 63.412 kg Intake: Intake, IV Amount 1450 1000 Levofloxacin 500mg/100mL 100 500 mg In 100 ml @ 100 mls/hr IV Q24HR [facility] Rx#: [id number] Piperacillin Sodium/ 100 Tazobact 4.5 gm In Sodium Chloride 0.9% 100 ml @ 100 mls/hr IV Q8HR [facility] Rx #:[id number] Sodium Chloride 0.9% 1, 1000 1000 000 ml @ 100 mls/hr IV . Q10H [facility] Rx#:[id number] Vancomycin HCl 0.75 gm In 250 Sodium Chloride 0.9% 250 ml @ 165 mls/hr IV Q12HR @1000,2200 [facility] Rx#: [id number] Oral 200 150 Other: # Voids 2 2 # Bowel Movements 1 1 Active Medications: Current Medications Acetaminophen (Tylenol) 650 mg PO Q4HR PRN PRN Reason: Pain (Mild) Stop: 11/16/16 23:27 Al Hydrox/Mg Hydrox/Simethicone (Maalox) 30 ml PO Q4HR PRN PRN Reason: GI DISTRESS Stop: 11/16/16 23:27 Albuterol Sulfate (Albuterol 2.5mg/3ml Neb Ud) 2.5 mg HHN Q6HRT [facility] Stop: 11/20/16 18:59 Last Admin: 09/22/16 19:34 Dose: 2.5 mg Amlodipine Besylate (Norvasc) 5 mg PO DAILY [facility] Stop: 11/17/16 08:59 Last Admin: 09/22/16 09:30 Dose: 5 mg Bisacodyl (Dulcolax 10 Mg Supp) 10 mg RC DAILY PRN PRN Reason: Constipation Stop: 11/16/16 23:27 Calcium/Vitamin D (Oscal W/Vitamin D) 1 tab PO DAILY [facility] Stop: 11/17/16 08:59 Last Admin: 09/22/16 09:20 Dose: 1 tab Docusate Sodium (Colace) 100 mg PO BID [facility] Stop: 11/17/16 08:59 Last Admin: 09/22/16 16:51 Dose: 100 mg Donepezil HCl (Aricept) 10 mg PO HS [facility] Stop: 11/17/16 20:59 Last Admin: 09/22/16 21:23 Dose: 10 mg Heparin Sodium (Porcine) (Heparin) 5,000 units SUBQ Q12HR [facility] Stop: 11/17/16 20:59 Last Admin: 09/22/16 21:22 Dose: 5,000 units Levofloxacin (Levaquin Pb) 500 mg in 100 mls @ 100 mls/hr IV Q24HR [facility] Stop: 11/17/16 22:59 Last Infusion: 09/22/16 00:26 Dose: Infused Sodium Chloride (Nacl 0.9%) 1,000 mls @ 100 mls/hr IV .Q10H [facility] Stop: 11/17/16 03:22 Last Admin: 09/22/16 21:22 Dose: 100 mls/hr Vancomycin HCl 1.25 gm/ Sodium (Chloride) 250 mls @ 165 mls/hr IV Q24H [facility] Stop: 11/22/16 09:59 Lactobacillus Rhamnosus (Culturelle) 1 each PO DAILY [facility] Stop: 11/18/16 08:59 Last Admin: 09/22/16 09:20 Dose: 1 each Lorazepam (Ativan) 1 mg IVP Q4HR PRN; Protocol PRN Reason: Agitation Stop: 11/17/16 15:11 Magnesium Hydroxide (Milk Of Magnesia) 30 ml PO HS PRN PRN Reason: Constipation Stop: 11/16/16 23:27 Memantine (Namenda) 10 mg PO BID [facility] Stop: 11/17/16 08:59 Last Admin: 09/22/16 16:51 Dose: 10 mg Methylprednisolone Sodium Succinate (Solu-Medrol) 40 mg IVP Q12HR [facility] Stop: 11/18/16 20:59 Last Admin: 09/22/16 21:23 Dose: 40 mg Miscellaneous (Probiotic Screen) 1 ea PRN PRN PRN Reason: PROTOCOL Stop: 11/17/16 10:57 Miscellaneous (Vte Chemical Prophylaxis Screen/ Admission) 1 ea PRN PRN PRN Reason: PROTOCOL Stop: 11/17/16 11:29 Miscellaneous (Vancomycin Iv Per Pharmacy) 1 ea PRN [facility] Stop: 11/17/16 12:14 Morphine Sulfate (Morphine) 1 mg IVP Q3HR PRN PRN Reason: Abdominal Pain Stop: 11/21/16 20:23 Morphine Sulfate (Morphine) 2 mg IVP Q3H PRN PRN Reason: Severe Pain Stop: 11/21/16 20:25 Pantoprazole Sodium (Protonix) 40 mg PO QDAC [facility] Stop: 11/17/16 07:29 Last Admin: 09/22/16 06:33 Dose: 40 mg Paroxetine HCl (Paxil) 10 mg PO DAILY [facility] PRN Reason: Protocol Stop: 11/17/16 08:59 Last Admin: 09/22/16 09:20 Dose: 10 mg Sodium Phosphate (Fleet Enema) 135 ml RC Q48HR PRN PRN Reason: Constipation Stop: 11/16/16 23:27 Thiamine HCl (Vitamin B1) 100 mg PO DAILY [facility] Stop: 11/17/16 08:59 Last Admin: 09/22/16 09:20 Dose: 100 mg - Procedures Procedures: Procedures Procedure Code Date GROUP PSYCHOTHERAPY 14268 06/14/15 GROUP PSYCHOTHERAPY GZHZZZZ 06/14/15 INSERT EMERGENCY AIRWAY 89626 09/17/16 INSERTION OF ENDOTRACHEAL AIRWAY INTO [facility], VIA OPENING [id number] 09/17/16 RESPIRATORY VENTILATION, 24-96 CONSECUTIVE HOURS [id number] 09/17/16 VENT MGMT INPAT INIT DAY 09/17/16 VENT MGMT INPAT SUBQ DAY 09/17/16 Infectious Disease Assmt/Plan - Problem List Patient Problems: All Active Problems Dementia (Acute) F03.90 INAPPROPRIATE TOUCHING (Acute 06/14/15) Inappropriate behavior (Acute) F99 - Assessment Assessment: 1. Sepsis. Severe sepsis. Lactic acidemia. 2. Pneumonia. sputum has grown MRSA. 3. 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 4. Vent-dependent respiratory failure, acute. 5. Hypertension. Plan: Will continue vancomycin IV and Levaquin, and dc zosyn. Nutritional Asmnt/Malnutr-PDOC - Dietary Evaluation Malnutrition Findings (Please click <Entered> for more info): Nutritional Asmnt/Malnutrition Start: 09/22/16 12: 37 Text: Status: Complete Freq: Document 09/22/16 12:37 [facility] (Rec: 09/22/16 12:48 [facility] [id number]) Nutritional Asmnt/Malnutrition Patient General Information Nutritional Screening Moderate Risk Screening Diagnosis Acute respiratory failure s/p recent intubation, pneumonia Pertinent Medical Hx/Surgical Hx Asthma, peptic ulcer disease Subjective Information Pt is a 81-year-old male from [facility] admitted with chief complaint of fever, cough, and chest congestion. Pt was intubated on 09/18, extubated on 09/19 and NGT feeding discontinued. Pt was awake but nonverbal during time of visit. Pt able to nod "yes" to questions. Full dentures in place; LISSET Quinones reports good PO intake of 100% . Severe muscle and fat depletion observed to temples, biceps, hands, and sternum. Current diet and PO intake is adequate to meet estimated nutritional needs. 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 Skin intact. Estimated Nutritional Goals BEE in Kcals: Using Current wt Calories/Kcals/Kg Based on CBW 63.5 kg with consideration of muscle/fat wasting: Kcals Calculated 7806-8581 kcals/day (30-35 kcals/kg) Protein: Using Current wt Protein g/kg: Based on CBW 63.5 kg with consideration of muscle/fat wasting: Protein Calculated 76-95 gm/day (1.2-1.5 gm/kg) Fluid: ml 3640-2049 ml/day (1 ml/kcal) Nutritional Problem 1. Problem Problem Severe protein-calorie malnutrition related to Etiology possible hypermetabolism with dx pneumonia and severe sepsis as evidenced by Signs/Symptoms: severe muscle and fat depletion to temples, biceps, hands, and sternum. Malnutrition Alert Body Fat Depletion (Severe) Mod to Severe Depletion Muscle Mass (Severe) Mod to Severe Depletion Protein-Calorie Malnutrition Severe Is there a minimum of two criteria Yes selected? Query Text:Check all the applicable criteria. A minimum of two criteria are recommended for diagnosis of either severe or non-severe malnutrition. Malnutrition Related to Morbid Obesity Malnutrition related to morbid obesity No Intervention/Recommendation Comments 1. Continue with current diet. Assist at meal times to encourage safe and adequate intake. 2. FNS to provide health shake with meals to promote nutritional intake. Expected Outcomes/Goals Expected Outcomes/Goals Have pt meet at least 75% of estimated nutritional needs. Physician Parameters for PEM Normal Weight % 90% - 110% (Normal) Body Mass Index (BMI) 18 - 24 (Mild) Serum Albumin (g/dl) 3.1 - 3.4 (Mild)
[2016-09-23] MEDS: Levofloxacin 500mg/100mL 500 MG/100 ML BAG IV SCH (00:11)
[2016-09-23] MEDS: Albuterol Nebulizer 2.5mg/3mL HHN SCH ×3 (01:31→13:47)
[2016-09-23] MEDS: Sodium Chloride 0.9% 1,000 ML IV SCH (08:05)
[2016-09-23] MEDS: Lactobacillus Rhamnosus 10 Billion CFU Capsule PO SCH (08:06)
[2016-09-23] MEDS: Pantoprazole 40 mg EC Tab PO SCH (08:06)
[2016-09-23] MEDS: methylPREDNISolone SS 40 mg Vial IVP SCH (08:06)
[2016-09-23] MEDS: Calcium Carb/Vit D 500 mg/200 U Tab PO SCH (08:06)
[2016-09-23] MEDS: Multivitamin w/ Minerals Tab PO SCH (08:06)
--- NOTE | 2016-09-23 09:19 | General Progress Note ---
Subjective - Review of Systems Events since last encounter: no change no distress Objective - Results Result Diagrams: 09/22/16 05:25 09/22/16 05:25 Recent Labs: Laboratory Last Values WBC 9.4 Th/cmm (4.8-10.8) D 09/22/16 05:25 RBC 4.34 Mil/cmm (3.80-5.80) 09/22/16 05:25 Hgb 13.4 gm/dL (12.6-17.4) 09/22/16 05:25 Hct 39.9 % (39.0-49.0) 09/22/16 05:25 MCV 91.8 fl (80-99) 09/22/16 05:25 MCH 30.8 pg (27.0-31.0) 09/22/16 05:25 MCHC Differential 33.5 pg (28.0-36.0) 09/22/16 05:25 RDW 15.2 % (11.5-20.0) 09/22/16 05:25 Plt Count 252 Th/cmm (150-400) 09/22/16 05:25 MPV 8.5 fl 09/22/16 05:25 Neutrophils % 80.2 % (40.0-80.0) H 09/17/16 22:19 Band Neutrophils % 2 % (0-10) 09/22/16 05:25 Lymphocytes % 12.5 % (20.0-50.0) L 09/17/16 22:19 Monocytes % 3.7 % (2.0-10.0) 09/17/16 22:19 Eosinophils % 1.1 % (0.0-5.0) 09/17/16 22:19 Basophils % 2.5 % (0.0-2.0) H 09/17/16 22:19 Neutrophils (Manual) 84 % (40-80) H 09/22/16 05:25 Lymphocytes 7 % (20-50) L 09/22/16 05:25 Monocytes 7 % (2-10) 09/22/16 05:25 Eosinophils 0 % (0-5) 09/20/16 05:00 Basophils 0 % (0-3) 09/20/16 05:00 Platelet Estimate ADEQUATE (NORMAL) 09/22/16 05:25 Platelet Morphology NORMAL (NORMAL) 09/20/16 05:00 RBC Morph Micro Appear NORMAL (NORMAL) 09/20/16 05:00 PT 11.0 SECONDS (9.5-11.5) 09/17/16 22:19 INR 1.06 (0.5-1.4) 09/17/16 22:19 PTT (Actin FS) 25.3 SECONDS (26.0-38.0) L 09/17/16 22:19 D-Dimer 1280 ng/mL (100-400) H 09/17/16 22:19 Specimen Source Arterial 09/20/16 09:33 Sample Site Left Radial 09/20/16 09:33 pH 7.45 (7.35-7.45) 09/20/16 09:33 pCO2 37.0 mmHg (35.0-45.0) 09/20/16 09:33 pO2 77.0 mmHg (80.0-100.0) L 09/20/16 09:33 HCO3 26.3 mEq/L (20.0-26.0) H 09/20/16 09:33 Base Excess 1.8 mEq/L (-3.0-3.0) 09/20/16 09:33 O2 Saturation 96.0 % (92.0-100.0) 09/20/16 09:33 Adebayo Test Positive 09/20/16 09:33 Vent Rate 12 09/18/16 15:24 Inspired O2 28 09/20/16 09:33 Tidal Volume 550 09/18/16 15:24 PEEP NA 09/18/16 15:24 Pressure (ins/psv/peep) NA 09/18/16 15:24 Critical Value PING 09/20/16 09:33 Sodium 137 mEq/L (136-145) 09/22/16 05:25 Potassium 3.4 mEq/L (3.5-5.1) L 09/22/16 05:25 Chloride 104 mEq/L (98-107) 09/22/16 05:25 Carbon Dioxide 28.9 mEq/L (21.0-31.0) 09/22/16 05:25 Anion Gap 7.5 (7.0-16.0) 09/22/16 05:25 BUN 21 mg/dL (7-25) 09/22/16 05:25 Creatinine 0.9 mg/dL (0.7-1.3) 09/22/16 05:25 Est GFR ( Amer) TNP 09/22/16 05:25 Est GFR (Non-Af Amer) TNP 09/22/16 05:25 BUN/Creatinine Ratio 23.3 09/22/16 05:25 Glucose 139 mg/dL (70-105) H 09/22/16 05:25 Hemoglobin A1c % 5.3 % (4.0-6.0) 09/18/16 05:08 Whole Bld Lactic Acid 3.35 mmol/L (0.60-1.99) H* 09/18/16 15:38 Calcium 8.8 mg/dL (8.6-10.3) 09/22/16 05:25 Total Bilirubin 0.5 mg/dL (0.3-1.0) 09/22/16 05:25 AST 18 U/L (13-39) 09/22/16 05:25 ALT 11 U/L (7-52) 09/22/16 05:25 Alkaline Phosphatase 51 U/L (34-104) 09/22/16 05:25 Creatine Kinase 73 U/L (30-223) 09/17/16 22:19 Troponin I 0.02 ng/mL (0.01-0.05) 09/17/16 22:19 B-Natriuretic Peptide 76.5 pg/mL (5.0-100.0) 09/17/16 22:19 Total Protein 6.0 gm/dL (6.0-8.3) 09/22/16 05:25 Albumin 3.2 gm/dL (4.2-5.5) L 09/22/16 05:25 Globulin 2.8 gm/dL 09/22/16 05:25 Albumin/Globulin Ratio 1.1 (1.0-1.8) 09/22/16 05:25 Triglycerides 83 mg/dL (<150) 09/17/16 22:19 Cholesterol 167 mg/dL (<200) 09/17/16 22:19 LDL Cholesterol Direct 120 mg/dL (75-193) 09/17/16 22:19 HDL Cholesterol 46 mg/dL (23-92) 09/17/16 22:19 Urine Source CLEAN C 09/18/16 19:00 Urine Color YELLOW 09/18/16 19:00 Urine Clarity TURBID (CLEAR) 09/18/16 19:00 Urine pH 5.5 (4.6 - 8.0) 09/18/16 19:00 Ur Specific [place] 1.025 (1.005-1.030) 09/18/16 19:00 Urine Protein TRACE mg/dL (NEGATIVE) 09/18/16 19:00 Urine Glucose (UA) NEGATIVE mg/dL (NEGATIVE) 09/18/16 19:00 Urine Ketones TRACE mg/dL (NEGATIVE) 09/18/16 19:00 Urine Blood TRACE (NEGATIVE) 09/18/16 19:00 Urine Nitrate NEGATIVE (NEGATIVE) 09/18/16 19:00 Urine Bilirubin NEGATIVE (NEGATIVE) 09/18/16 19:00 Urine Urobilinogen 0.2 E.U./dL (0.2 - 1.0) 09/18/16 19:00 Ur Leukocyte Esterase NEGATIVE (NEGATIVE) 09/18/16 19:00 Urine RBC 2-5 /hpf (0-5) H 09/18/16 19:00 Urine WBC 2-5 /hpf (0-5) H 09/18/16 19:00 Ur Epithelial Cells FEW /lpf (FEW) 09/18/16 19:00 Urine Bacteria FEW /hpf (NONE SEEN) 09/18/16 19:00 Vancomycin Trough 19.1 ug/mL (10-20) 09/22/16 09:00 - Physical Exam Vitals and I&O: Vital Signs Temp 98.0 F 09/23/16 04:00 Pulse 64 09/23/16 08:12 Resp 16 09/23/16 07:24 BP 156/81 09/23/16 08:12 Pulse Ox 98 09/23/16 07:24 Intake & Output 09/22/16 09/23/16 09/23/16 18:59 06:59 18:59 Intake Total 150 1000 1000 Balance 150 1000 1000 Weight (lbs) 63.412 kg 63.049 kg Intake: Intake, IV Amount 1000 1000 Sodium Chloride 0.9% 1, 1000 1000 000 ml @ 100 mls/hr IV . Q10H [facility] Rx#:[id number] Oral 150 Other: # Voids 2 # Bowel Movements 1 Active Medications: Current Medications Acetaminophen (Tylenol) 650 mg PO Q4HR PRN PRN Reason: Pain (Mild) Stop: 11/16/16 23:27 Al Hydrox/Mg Hydrox/Simethicone (Maalox) 30 ml PO Q4HR PRN PRN Reason: GI DISTRESS Stop: 11/16/16 23:27 Albuterol Sulfate (Albuterol 2.5mg/3ml Neb Ud) 2.5 mg HHN Q6HRT [facility] Stop: 11/20/16 18:59 Last Admin: 09/23/16 07:24 Dose: 2.5 mg Amlodipine Besylate (Norvasc) 5 mg PO DAILY [facility] Stop: 11/17/16 08:59 Last Admin: 09/23/16 08:12 Dose: 5 mg Bisacodyl (Dulcolax 10 Mg Supp) 10 mg RC DAILY PRN PRN Reason: Constipation Stop: 11/16/16 23:27 Calcium/Vitamin D (Oscal W/Vitamin D) 1 tab PO DAILY [facility] Stop: 11/17/16 08:59 Last Admin: 09/23/16 08:06 Dose: 1 tab Docusate Sodium (Colace) 100 mg PO BID [facility] Stop: 11/17/16 08:59 Last Admin: 09/23/16 08:06 Dose: 100 mg Donepezil HCl (Aricept) 10 mg PO HS [facility] Stop: 11/17/16 20:59 Last Admin: 09/22/16 21:23 Dose: 10 mg Heparin Sodium (Porcine) (Heparin) 5,000 units SUBQ Q12HR [facility] Stop: 11/17/16 20:59 Last Admin: 09/23/16 08:06 Dose: 5,000 units Levofloxacin (Levaquin Pb) 500 mg in 100 mls @ 100 mls/hr IV Q24HR [facility] Stop: 11/17/16 22:59 Last Admin: 09/23/16 00:11 Dose: 100 mls/hr Sodium Chloride (Nacl 0.9%) 1,000 mls @ 100 mls/hr IV .Q10H [facility] Stop: 11/17/16 03:22 Last Admin: 09/23/16 08:05 Dose: 100 mls/hr Vancomycin HCl 1.25 gm/ Sodium (Chloride) 250 mls @ 165 mls/hr IV Q24H [facility] Stop: 11/22/16 09:59 Lactobacillus Rhamnosus (Culturelle) 1 each PO DAILY [facility] Stop: 11/18/16 08:59 Last Admin: 09/23/16 08:06 Dose: 1 each Lorazepam (Ativan) 1 mg IVP Q4HR PRN; Protocol PRN Reason: Agitation Stop: 11/17/16 15:11 Magnesium Hydroxide (Milk Of Magnesia) 30 ml PO HS PRN PRN Reason: Constipation Stop: 11/16/16 23:27 Memantine (Namenda) 10 mg PO BID [facility] Stop: 11/17/16 08:59 Last Admin: 09/23/16 08:06 Dose: 10 mg Methylprednisolone Sodium Succinate (Solu-Medrol) 40 mg IVP Q12HR [facility] Stop: 11/18/16 20:59 Last Admin: 09/23/16 08:06 Dose: 40 mg Miscellaneous (Probiotic Screen) 1 ea PRN PRN PRN Reason: PROTOCOL Stop: 11/17/16 10:57 Miscellaneous (Vte Chemical Prophylaxis Screen/ Admission) 1 ea PRN PRN PRN Reason: PROTOCOL Stop: 11/17/16 11:29 Miscellaneous (Vancomycin Iv Per Pharmacy) 1 ea MC PRN [facility] Stop: 11/17/16 12:14 Morphine Sulfate (Morphine) 1 mg IVP Q3HR PRN PRN Reason: Abdominal Pain Stop: 11/21/16 20:23 Morphine Sulfate (Morphine) 2 mg IVP Q3H PRN PRN Reason: Severe Pain Stop: 11/21/16 20:25 Pantoprazole Sodium (Protonix) 40 mg PO QDAC [facility] Stop: 11/17/16 07:29 Last Admin: 09/23/16 08:06 Dose: 40 mg Paroxetine HCl (Paxil) 10 mg PO DAILY [facility] PRN Reason: Protocol Stop: 11/17/16 08:59 Last Admin: 09/23/16 08:06 Dose: 10 mg Sodium Phosphate (Fleet Enema) 135 ml RC Q48HR PRN PRN Reason: Constipation Stop: 11/16/16 23:27 Thiamine HCl (Vitamin B1) 100 mg PO DAILY [facility] Stop: 11/17/16 08:59 Last Admin: 09/23/16 08:06 Dose: 100 mg General: No acute distress HEENT: Atraumatic Cardiovascular: Regular rate, Normal S1, Normal S2 - Procedures Procedures: Procedures Procedure Code Date GROUP PSYCHOTHERAPY 87834 06/14/15 GROUP PSYCHOTHERAPY GZHZZZZ 06/14/15 INSERT EMERGENCY AIRWAY 46839 09/17/16 INSERTION OF ENDOTRACHEAL AIRWAY INTO [facility], VIA OPENING [id number] 09/17/16 RESPIRATORY VENTILATION, 24-96 CONSECUTIVE HOURS [id number] 09/17/16 VENT MGMT INPAT INIT 09/17/16 VENT MGMT INPAT SUBQ 09/17/16 Assessment/Plan - Problem List Patient Problems: All Active Problems Dementia (Acute) F03.90 INAPPROPRIATE TOUCHING (Acute 06/14/15) Inappropriate behavior (Acute) F99 - Plan Plan: monitor vitals/diet labs f/up consultants Nutritional Asmnt/Malnutr-PDOC - Dietary Evaluation Malnutrition Findings (Please click <Entered> for more info): Nutritional Asmnt/Malnutrition Start: 09/22/16 12: 37 Text: Status: Complete Freq: Document 09/22/16 12:[address] [facility] (Rec: 09/22/16 12:[address] [facility] [id number]) Nutritional Asmnt/Malnutrition Patient General Information Nutritional Screening Moderate Risk Screening Diagnosis Acute respiratory failure s/p recent intubation, pneumonia Pertinent Medical Hx/Surgical Hx Asthma, peptic ulcer disease Subjective Information Pt is a 81-year-old male from [facility] admitted with chief complaint of fever, cough, and chest congestion. Pt was intubated on 09/18, extubated on 09/19 and NGT feeding discontinued. Pt was awake but nonverbal during time of visit. Pt able to nod "yes" to questions. Full dentures in place; MANAGER VIDEOGui Quinones reports good PO intake of 100% . Severe muscle and fat depletion observed to temples, biceps, hands, and sternum. Current diet and PO intake is adequate to meet estimated nutritional needs. Current Diet Order/ Nutrition Support Soft/bland Patient / S.O Can't verbalize diet edu Pertinent Medications Oscal with Vitamin D, Colace, Culturelle, Levaquin, Solu- Medrol, Vancomycin, Protonix, NaCl 0.9%, Vitamin B1 Pertinent Labs Reviewed Nutritional Hx/Data Height 1.68 m Height (Calculated Centimeters) 167.6 Current Weight (lbs) 63.412 kg Weight (Calculated Kilograms) 63.4 Weight (Calculated Grams) 15154.2 [place] Body Weight 142 % [place] Body Weight 98 Recent Weight Change No Weight Status Underweight GI Symptoms GI Symptoms None Food Allergies No Usual diet at home Mechanical soft, CORIE Skin Integrity/Comment: Rad 14. Skin intact. Estimated Nutritional Goals BEE in Kcals: Using Current wt Calories/Kcals/Kg Based on CBW 63.5 kg with consideration of muscle/fat wasting: Kcals Calculated 6024-2771 kcals/day (30-35 kcals/kg) Protein: Using Current wt Protein g/kg: Based on CBW 63.5 kg with consideration of muscle/fat wasting: Protein Calculated 76-95 gm/day (1.2-1.5 gm/kg) Fluid: ml 8312-4244 ml/day (1 ml/kcal) Nutritional Problem 1. Problem Problem Severe protein-calorie malnutrition related to Etiology possible hypermetabolism with dx pneumonia and severe sepsis as evidenced by Signs/Symptoms: severe muscle and fat depletion to temples, biceps, hands, and sternum. Malnutrition Alert Body Fat Depletion (Severe) Mod to Severe Depletion Muscle Mass (Severe) Mod to Severe Depletion Protein-Calorie Malnutrition Severe Is there a minimum of two criteria Yes selected? Query Text:Check all the applicable criteria. A minimum of two criteria are recommended for diagnosis of either severe or non-severe malnutrition. Malnutrition Related to Morbid Obesity Malnutrition related to morbid obesity No Intervention/Recommendation Comments 1. Continue with current diet. Assist at meal times to encourage safe and adequate intake. 2. FNS to provide health shake with meals to promote nutritional intake. Expected Outcomes/Goals Expected Outcomes/Goals Have pt meet at least 75% of estimated nutritional needs. Physician Parameters for PEM Normal Weight % 90% - 110% (Normal) Body Mass Index (BMI) 18 - 24 (Mild) Serum Albumin (g/dl) 3.1 - 3.4 (Mild)
--- NOTE | 2016-09-23 09:46 | Diagnostic Imaging Report ---
Portable chest x-ray HISTORY: Shortness of breath Compared to prior exam of September 20, 2016, the heart remains enlarged. Accentuation of the lower interstitial lung markings. Poor visualization of the left lower lobe and left hemidiaphragm. Underlying consolidation and/or atelectasis cannot be excluded. Clinical correlation and follow-up needed. IMPRESSION: 1. Suggestion of increased density in the left lower lobe with obscuration of the left hemidiaphragm. Consolidation and/or atelectasis cannot be excluded. Clinical correlation and follow-up recommended.
--- NOTE | 2016-09-25 16:40 | Discharge Summary ---
DATE OF DISCHARGE: 09/23/2016 I know this patient from [facility]. The patient known to have history of hypertension, history of psych disorder and history of failure to thrive, apparently became short of breath and respiratory insufficiency and was sent to [place] and he found to have pneumonia and deteriorated and went into respiratory failure, requiring intubation and ICU admission and the patient was treated for all of that and the patient gradually improved. The patient was extubated and on September 23, he was doing much better, stable condition. The patient was sent back to [facility] where I will be following the patient and IV antibiotics will be continued for 5 more days. OTHER MEDICATIONS: See the reconciliation sheet. ACTIVITY: As tolerated. CONDITION AT THE TIME OF DISCHARGE: Stable. JOB# [id number] MTDD
== END 2016-09-23 15:40 | DRG 871 ==
LOC: ER 21:47 → MSI 22:35 → ICU 09-18 01:55 → TELE 09-20 17:30 → MSI 09-21 17:43
PROVIDERS: ADMIT Internal Medicine; ATTEND Internal Medicine
PROC: 5A1945Z Respiratory Ventilation, 24-96 Consecutive Hours (ICD-10-PCS; principal; 2016-09-18)
PROC: 0BH17EZ Insertion of Endotracheal Airway into Trachea, Via Natural or Artificial Opening (ICD-10-PCS; 2016-09-18)
DX: A41.9 Sepsis, unspecified organism (principal); J96.00 Acute respiratory failure, unspecified whether with hypoxia or hypercapnia; Z99.11 Dependence on respirator [ventilator] status; J15.212 Pneumonia due to Methicillin resistant Staphylococcus aureus; J44.1 Chronic obstructive pulmonary disease with (acute) exacerbation; J44.0 Chronic obstructive pulmonary disease with (acute) lower respiratory infection; R65.20 Severe sepsis without septic shock; I10 Essential (primary) hypertension; M19.90 Unspecified osteoarthritis, unspecified site; K21.9 Gastro-esophageal reflux disease without esophagitis; K27.9 Peptic ulcer, site unspecified, unspecified as acute or chronic, without hemorrhage or perforation; F31.9 Bipolar disorder, unspecified; F03.90 Unspecified dementia, unspecified severity, without behavioral disturbance, psychotic disturbance, mood disturbance, and anxiety; Z88.6 Allergy status to analgesic agent; Z83.3 Family history of diabetes mellitus; Z79.51 Long term (current) use of inhaled steroids; Z87.891 Personal history of nicotine dependence; Z82.49 Family history of ischemic heart disease and other diseases of the circulatory system
CPT/HCPCS: 36415-UA; 36600-90; 71010-TC; 80048-TC; 80053-TC; 80061-TC; 80202-TC; 81001-TC; 82550-TC; 82803-TC; 83036-90; 83605; 83880-TC; 84484-TC; 85007-TC; 85025-TC; 85027-TC; 85379-TC; 85610-TC; 87070; 87086-90; 93005; 94002; 94003; 94640; 94760; 96374; 96375; J0330; J1644; J1956; J2001; J2405; J2543; J2920; J2930; J3370; J3480; J7030; J7613; Z7610

== ENCOUNTER 2017-12-23 16:54 | Inpatient (IN) | payer MEDICAID, MEDICARE ==
--- NOTE | 2017-12-23 17:20 | ED Physician Chart ---
ED Chief Complaint/HPI - Patient Information Date Seen:: 12/23/17 Time Seen:: 16:50 Chief Complaint:: Congestion History of Present Illness:: onset x 3 days of fever, cough, and congestion; no report of trauma, H/As, S/T, neck pain, C/P, SOB, Abd. Pain, A/N/V/D/c, chills, or urinary s/s Allergies:: Allergies Allergy/AdvReac Type Severity Reaction Status Date / Time aspirin Allergy Verified 01/16/16 10:21 levofloxacin [From Levaquin] Allergy Verified 12/23/17 17:01 Historian:: Patient, EMS Review:: Nurse's Note Reviewed, Old Chart Reviewed, EMS run form Reviewed ED Review of Systems - Review of Systems General/Constitutional: Fever, No chills, No weight loss, Weakness, No diaphoresis, No edema, No loss of appetite Skin: No skin lesions, No rash, No bruising Head: No headache, No light-headedness Eyes: No loss of vision, No pain, No diplopia ENT: No earache, Nasal drainage, No sore throat, No tinnitus Neck: No neck pain, No swelling, No thyromegaly, No stiffness, No mass noted Cardio Vascular: No chest pain, No palpitations, No PND, No orthopnea, No edema Pulmonary: No SOB, Cough, No sputum, No wheezing GI: No nausea, No vomiting, No diarrhea, No pain, No melena, No hematochezia, No constipation, No hematemesis G/U: No dysuria, No frequency, No hematuria, No nacturia Musculoskeletal: No bone or joint pain, No back pain, No muscle pain Endocrine: No polyuria, No polydipsia Psychiatric: Prior psych history, Depression, Anxiety, No suicidal ideation, No homicidal ideation, No auditory hallucination, No visual hallucination Hematopoietic: No bruising, No lymphadenopathy Allergic/Immuno: No urticaria, No angioedema Neurological: No syncope, No focal symptoms, Weakness, No paresthesia, No headache, No seizure, No dizziness, Confusion, No vertigo ED Past Medical History - Past Medical History Obtainable: Yes Past Medical History: CAD, CHF, Asthma/COPD, Arthritis, Dementia Family History: HTN Social History: Non Smoker, No Alcohol, No Drug Use, , Care Facility Surgical History: None Psychiatricy History: Bipolar, Dementia Medication: Reviewed Family Medical History - Family Member Mother History Unknown: Yes Ethnicity: Non- Living Status: Unknown ED Physical Exam - Physical Examination General/Constitutional: Awake, Well-developed, well-nourished, Alert, No distress, GCS 15, Non-toxic appearing, Ambulatory Head: Atraumatic Eyes: Lids, conjuctiva normal, PERRL, EOMI Skin: Nl inspection, No rash, No skin lesions, No ecchymosis, Well hydrated, No lymphadenopathy ENMT: External ears, nose nl, TM canals nl, Nasal exam nl, Lips, teeth, gums nl , Oropharynx nl, Tonsils nl Neck: Nontender, Full ROM w/o pain, No JVD, No nuchal rigidity, No bruit, No mass, No stridor Respiratory: Nl effort/Exclusion Other Respiratory comments:: Lungs: + Rales and Rhonchi Cardio Vascular: RRR, No murmur, gallop, rubs, NL S1 S2, Carotid/Femoral/Distal pulses equal bilaterally GI: No tenderness/rebounding/guarding, No organomegaly, No hernia, Normal BS's, Nondistended, No mass/bruits, No McBurney tenderness : No CVA tenderness Extremities: No tenderness or effusion, Full ROM, normal strength in all extremities, No edema, Normal digits & nails Neuro/Psych: Alert/oriented, DTR's symmetric, Normal sensory exam, Normal motor strength, Judgement/insight normal, Mood normal, Normal gait, No focal deficits Misc: Normal back, No paraspinal tenderness ED Labs/Radiology/EKG Results - Lab Results Comments:: Reviewed - Radiology Results Comments:: CXR: + Infiltrate - EKG Interpretations EKG Time:: 17:20 Rate & Rhythm: 54; SB Comments:: RBBB; non-specific st-t changes ED Septic Shock - . Is Septic Shock (SBP<90, OR Lactate>4 mmol\L) present?: No ED Reassessment (Disposition) - Reassessment Reassessment Condition:: Improved - Diagnosis Diagnosis:: Congestion; Fever; Cough; Dementia; Hematuria; UTI; PNA; Sepsis; Cystitis - Aftercare/Follow up Instructions Aftercare/Follow-Up Instructions:: Counseled pt regarding lab results/diagnosis & need follow up, Counseled pt & family regarding lab results/diagnosis & need follow up - Patient Disposition Discharge/Transfer:: Acute Care w/in this hosp Accepting Physician:: Dr. Layne Time Called:: 1899 Time Responded:: 19:00 Admitted to:: Telemetry Spoke to:: Dr. Layne Admitting Medical Physician:: Dr. Layne Condition at Disposition:: Stable, Improved
[2017-12-23 17:36] LABS: % BASOPHILS 0.2 % (0.0-2.0); % EOSINOPHILS 4.1 % (0.0-5.0); % LYMPHOCYTES 22.3 % (20.0-50.0); % MONOCYTES 5.4 % (2.0-10.0); EOSINOPHILE ABSOLUTE 0.4 Th/cmm (0.1-0.4); HEMATOCRIT 42.6 % (41.0-60); HEMOGLOBIN 13.9 gm/dL (12-16); MEAN CELL VOLUME 90.5 fl (80-99); MEAN CORPUSCULAR HEMOGLOBIN 29.5 pg (27.0-31.0); MEAN CORPUSCULAR HGB CONC 32.6 pg (28.0-36.0); MEAN PLATELET VOLUME 7.8 fl; MONOCYTE ABSOLUTE 0.5 Th/cmm (0.3-1.0); NEUTROPHILE ABSOLUTE 5.9 Th/cmm (1.8-8.0); PLATELET COUNT 319 Th/cmm (150-400); RED BLOOD COUNT 4.71 Mil/cmm (3.80-5.80); RED CELL DISTRIBUTION WIDTH 14.1 % (11.5-20.0); WHITE BLOOD COUNT 8.8 Th/cmm (4.8-10.8)
[2017-12-23 17:47] LABS: INR 1.13 (0.5-1.4); PROTHROMBIN TIME (TEST) 11.6 SECONDS (9.5-11.5)
[2017-12-23 17:49] LABS: ALB/GLOB RATIO 1.2 (1.0-1.8); ALBUMIN 3.4 gm/dL (4.2-5.5); ALKALINE PHOSPHATASE 78 U/L (34-104); ANION GAP 10.3 (7.0-16.0); BILIRUBIN,TOTAL 0.4 mg/dL (0.3-1.0); BUN - UREA NITROGEN 24 mg/dL (7-25); CARBON DIOXIDE 26.7 mEq/L (21.0-31.0); CHLORIDE 103 mEq/L (98-107); CHOLESTEROL 136 mg/dL (<200); CREATININE KINASE 55 U/L (30-223); GLUCOSE 119 mg/dL (70-105); HDL -HIGH DENSITY LIPOPROTEIN 32 mg/dL (23-92); SGOT 13 U/L (13-39); SGPT/ALT 8 U/L (7-52); SODIUM SERUM 136 mEq/L (136-145); TOTAL PROTEIN,SERUM 6.3 gm/dL (6.0-8.3); TRIGLYCERIDES 113 mg/dL (<150)
[2017-12-23 19:16] LABS: URINE SOURCE MIDSTREAM
[2017-12-23 19:18] LABS: URINE BILIRUBIN NEGATIVE (NEGATIVE); URINE BLOOD SMALL (NEGATIVE); URINE GLUCOSE (UA) NEGATIVE (NEGATIVE); URINE KETONE TRACE mg/dL (NEGATIVE); URINE LEUKOCYTE ESTERASE NEGATIVE (NEGATIVE); URINE MICROSCOPIC INDICATED? YES; URINE NITRATE NEGATIVE (NEGATIVE); URINE PROTEIN NEGATIVE (NEGATIVE); URINE UROBILINOGEN 0.2 E.U./dL (0.2 - 1.0)
[2017-12-23 19:20] LABS: URINE CLARITY CLEAR (CLEAR); URINE COLOR YELLOW
[2017-12-23 19:22] LABS: URINE BACTERIA FEW /hpf (NONE SEEN); URINE EPITHELIAL CELLS FEW /lpf (FEW); URINE WBC 0-2 /hpf (0-5)
[2017-12-23] MEDS ORDERED: cefTRIAXone 1 GM in Sodium Chloride 0.9% 50 ML IV ONE (19:30)
[2017-12-23 21:54] VITALS: BP 168/76
[2017-12-23] MEDS ORDERED: Albuterol Nebulizer 2.5mg/3mL HHN PRN (22:00)
[2017-12-24 05:42] LABS: ALB/GLOB RATIO 1.1 (1.0-1.8); ALBUMIN 3.3 gm/dL (4.2-5.5); ALKALINE PHOSPHATASE 78 U/L (34-104); BILIRUBIN,TOTAL 0.4 mg/dL (0.3-1.0); BUN - UREA NITROGEN 19 mg/dL (7-25); CALCIUM SERUM 8.8 mg/dL (8.6-10.3); CHLORIDE 106 mEq/L (98-107); CREATININE - SERUM 0.8 mg/dL (0.7-1.3); GLUCOSE 103 mg/dL (70-105); SGOT 13 U/L (13-39); SGPT/ALT 7 U/L (7-52); SODIUM SERUM 136 mEq/L (136-145); TOTAL PROTEIN,SERUM 6.2 gm/dL (6.0-8.3)
[2017-12-24 05:57] LABS: % BASOPHILS 1.1 % (0.0-2.0); % EOSINOPHILS 4.8 % (0.0-5.0); % LYMPHOCYTES 23.1 % (20.0-50.0); % MONOCYTES 7.4 % (2.0-10.0); % NEUTROPHILS 63.6 % (40.0-80.0); BASOPHILE ABSOLUTE 0.1 Th/cumm (0-0.2); EOSINOPHILE ABSOLUTE 0.5 Th/cmm (0.1-0.4); HEMATOCRIT 42.7 % (41.0-60); HEMOGLOBIN 14.4 gm/dL (12-16); LYMPHOCYTE ABSOLUTE 2.3 Th/cmm (1.5-3.0); MEAN CELL VOLUME 90.7 fl (80-99); MEAN CORPUSCULAR HEMOGLOBIN 30.5 pg (27.0-31.0); MEAN CORPUSCULAR HGB CONC 33.6 pg (28.0-36.0); MEAN PLATELET VOLUME 8.3 fl; MONOCYTE ABSOLUTE 0.7 Th/cmm (0.3-1.0); NEUTROPHILE ABSOLUTE 6.3 Th/cmm (1.8-8.0); PLATELET COUNT 267 Th/cmm (150-400); RED BLOOD COUNT 4.71 Mil/cmm (3.80-5.80); RED CELL DISTRIBUTION WIDTH 14.2 % (11.5-20.0); WHITE BLOOD COUNT 9.9 Th/cmm (4.8-10.8)
[2017-12-24] MEDS ORDERED: Acetaminophen 500 MG TAB PO PRN (08:00)
[2017-12-24] MEDS ORDERED: Maalox 30 mL Cup PO PRN (08:00)
[2017-12-24] MEDS ORDERED: Magnesium Hydroxide (MOM) 30 mL UDC PO PRN (08:00)
[2017-12-24] MEDS ORDERED: Fleet Enema 135 mL RC PRN (08:00)
--- NOTE | 2017-12-24 08:59 | Diagnostic Imaging Report ---
Portable chest x-ray HISTORY: Pain Patient is rotated. There is a poor inspiration. Heart size appears generous. Atherosclerotic calcification seen in the aorta. There is accentuation of the lower interstitial lung markings. However, no definite focal processes are seen. IMPRESSION: 1. No definite acute focal pulmonary processes 2. Suggestion of cardiomegaly with atherosclerotic vascular changes
[2017-12-24] MEDS ORDERED: [UNRECOGNIZED DRUG - OTHER] PO SCH (09:00)
[2017-12-24] MEDS ORDERED: GLYCOPYRROLATE IH SCH (09:00)
[2017-12-24] MEDS ORDERED: INDACATEROL IH SCH (09:00)
[2017-12-24] MEDS ORDERED: VITAMIN D3 E PO SCH (09:00)
[2017-12-24] MEDS ORDERED: CALCIUM CARBONATE PO SCH (09:00)
[2017-12-24] MEDS ORDERED: [UNRECOGNIZED DRUG - OTHER] IH SCH (09:00)
[2017-12-24] MEDS: Calcium Carb/Vit D 500 mg/200 U Tab PO SCH (09:24)
[2017-12-24] MEDS: Multivitamin w/ Minerals Tab PO SCH (09:24)
[2017-12-24] MEDS: Pantoprazole 40 mg EC Tab PO SCH (09:24)
[2017-12-24] MEDS: Azithromycin 500 MG in Sodium Chloride 0.9% 250 ML IV SCH (09:35)
--- NOTE | 2017-12-24 10:26 | History & Physical ---
ADMIT DATE: 12/23/2017 HISTORY OF PRESENT ILLNESS: The patient came in with increasing congestion and the patient has 3-day onset of fever, cough, congestion, history of nausea, vomiting, diarrhea, chest pain, etc. The patient is complaining of increasing congestion, cough. REVIEW OF SYSTEMS: Otherwise negative, complaining of weakness. PAST MEDICAL HISTORY: The patient is known to have history of coronary artery disease and congestive heart failure, asthma, COPD, history of arthritis, history of severe dementia and history of psychosis and bipolar disorder. PHYSICAL EXAMINATION: GENERAL: Awake, alert, not in distress. VITAL SIGNS: Stable. HEAD: Normal. ENT: Normal. NECK: Supple, nontender. LUNGS: Clear. Bilateral rales and rhonchi. CARDIOVASCULAR SYSTEM: S1 and S2 heard. ABDOMEN: Soft. CENTRAL NERVOUS SYSTEM: The patient was confused. LABORATORY DATA: Chest x-ray shows infiltration and pneumonia. DIAGNOSES: Pneumonia, history of congestion, history of cough, history of dementia, history of hematuria, urinary tract infection, sepsis, cystitis, history of bipolar disorder, history of coronary artery disease and history of congestive heart failure in the past, history of asthma, history of arthritis was made. The patient will be admitted and I will follow the patient, will give him antibiotics. The patient will have a Dr. Xiomara Augustin to see the patient as well as psychiatrist, Dr. Siddiqui and I will follow the patient. JOB# [id number]
[2017-12-24] MEDS: Albuterol Nebulizer 2.5mg/3mL HHN SCH ×2 (13:14→19:32)
[2017-12-24] MEDS: cefTRIAXone 1 GM in Sodium Chloride 0.9% 50 ML IV SCH (21:48)
[2017-12-25] MEDS: Albuterol Nebulizer 2.5mg/3mL HHN SCH ×4 (01:03→19:14)
[2017-12-25] MEDS ORDERED: OMEPRAZOLE PO SCH (07:30)
--- NOTE | 2017-12-25 07:49 | Diagnostic Imaging Report ---
CT Chest without IV contrast HISTORY: Pneumonia COMPARISON: Chest x-ray performed on 12/23/2018. Technique: Axial images were obtained from the base of the neck to the upper abdomen without IV contrast. Reconstructions were made. Total DLP 305, CTDI 8 Findings: Evaluation of the mediastinum is limited due to lack of IV contrast. Heavy atherosclerotic vascular disease is noted. No evidence of an aortic aneurysm. No pericardial effusion. Heart size is within normal limits. No evidence of mediastinal lymphadenopathy The lungs demonstrate diffuse emphysematous changes. Hypoventilatory and atelectatic changes of the lungs are also noted with minimal bibasal passive atelectatic changes. A few scattered small nodular infiltrates are noted the largest along the inferior aspect of the right upper lobe measuring 9 mm (image 61, series 3). Additional small left lower lobe is a nodular infiltrates are seen largest measuring 6 mm (image 59, series 3). No pleural effusions. The upper abdomen demonstrates diffuse atherosclerosis. Advanced Degenerative changes are seen throughout the spine. Postsurgical changes of the lower cervical and upper thoracic spine are partially seen. IMPRESSION: Diffuse emphysematous lung changes with bibasilar passive atelectatic and consolidative changes. Few scattered nodular infiltrates are seen greatest along the inferior aspect of the right upper lobe measuring 9 mm. Findings may be due to infectious or less likely neoplastic process. Correlation with old exams would be helpful, if available. Short-term follow-up CT examination after resolution of acute symptoms is recommended for further assessment/monitoring of these findings. Additional atelectatic lung changes Heavy atherosclerotic vascular disease.
[2017-12-25] MEDS: Calcium Carb/Vit D 500 mg/200 U Tab PO SCH (08:17)
[2017-12-25] MEDS: Pantoprazole 40 mg EC Tab PO SCH (08:17)
[2017-12-25] MEDS: Multivitamin w/ Minerals Tab PO SCH (08:17)
[2017-12-25] MEDS: Azithromycin 500 MG in Sodium Chloride 0.9% 250 ML IV SCH (08:37)
[2017-12-25] MEDS ORDERED: Probiotic Screen MC PRN (13:16)
--- NOTE | 2017-12-25 14:19 | Internal Medicine Prog Note ---
Internal Medicine Subjective - Subjective Patient seen and examined:: chart reviewed Patient is:: awake, verbal, talking, congested Patient Complaints of:: congestion, cough Per staff patient has:: no adverse event, tolerating meds Internal Medicine Objective - Results Result Diagrams: 12/24/17 05:10 12/24/17 05:10 Recent Labs: Laboratory Last Values WBC 9.9 Th/cmm (4.8-10.8) 12/24/17 05:10 RBC 4.71 Mil/cmm (3.80-5.80) 12/24/17 05:10 Hgb 14.4 gm/dL (12-16) 12/24/17 05:10 Hct 42.7 % (41.0-60) 12/24/17 05:10 MCV 90.7 fl (80-99) 12/24/17 05:10 MCH 30.5 pg (27.0-31.0) 12/24/17 05:10 MCHC Differential 33.6 pg (28.0-36.0) 12/24/17 05:10 RDW 14.2 % (11.5-20.0) 12/24/17 05:10 Plt Count 267 Th/cmm (150-400) 12/24/17 05:10 MPV 8.3 fl 12/24/17 05:10 Neutrophils % 63.6 % (40.0-80.0) 12/24/17 05:10 Lymphocytes % 23.1 % (20.0-50.0) 12/24/17 05:10 Monocytes % 7.4 % (2.0-10.0) 12/24/17 05:10 Eosinophils % 4.8 % (0.0-5.0) 12/24/17 05:10 Basophils % 1.1 % (0.0-2.0) 12/24/17 05:10 PT 11.6 SECONDS (9.5-11.5) H 12/23/17 17:25 INR 1.13 (0.5-1.4) 12/23/17 17:25 PTT (Actin FS) 26.4 SECONDS (26.0-38.0) 12/23/17 17:25 Sodium 136 mEq/L (136-145) 12/24/17 05:10 Potassium 4.0 mEq/L (3.5-5.1) 12/24/17 05:10 Chloride 106 mEq/L (98-107) 12/24/17 05:10 Carbon Dioxide 23.0 mEq/L (21.0-31.0) 12/24/17 05:10 Anion Gap 11.0 (7.0-16.0) 12/24/17 05:10 BUN 19 mg/dL (7-25) 12/24/17 05:10 Creatinine 0.8 mg/dL (0.7-1.3) 12/24/17 05:10 Est GFR ( Amer) TNP 12/24/17 05:10 Est GFR (Non-Af Amer) TNP 12/24/17 05:10 BUN/Creatinine Ratio 23.8 12/24/17 05:10 Glucose 103 mg/dL (70-105) 12/24/17 05:10 Whole Bld Lactic Acid 1.32 mmol/L (0.60-1.99) 12/23/17 17:25 Calcium 8.8 mg/dL (8.6-10.3) 12/24/17 05:10 Total Bilirubin 0.4 mg/dL (0.3-1.0) 12/24/17 05:10 AST 13 U/L (13-39) 12/24/17 05:10 ALT 7 U/L (7-52) 12/24/17 05:10 Alkaline Phosphatase 78 U/L (34-104) 12/24/17 05:10 Creatine Kinase 55 U/L (30-223) 12/23/17 17:25 Troponin I 0.01 ng/mL (0.01-0.05) 12/23/17 17:25 B-Natriuretic Peptide 92.7 pg/mL (5.0-100.0) 12/23/17 17:25 Total Protein 6.2 gm/dL (6.0-8.3) 12/24/17 05:10 Albumin 3.3 gm/dL (4.2-5.5) L 12/24/17 05:10 Globulin 2.9 gm/dL 12/24/17 05:10 Albumin/Globulin Ratio 1.1 (1.0-1.8) 12/24/17 05:10 Triglycerides 113 mg/dL (<150) 12/23/17 17:25 Cholesterol 136 mg/dL (<200) 12/23/17 17:25 LDL Cholesterol Direct 92 mg/dL (75-193) 12/23/17 17:25 HDL Cholesterol 32 mg/dL (23-92) 12/23/17 17:25 Urine Source MIDSTREAM 12/23/17 18:41 Urine Color YELLOW 12/23/17 18:41 Urine Clarity CLEAR (CLEAR) 12/23/17 18:41 Urine pH 6.0 (4.6 - 8.0) 12/23/17 18:41 Ur Specific Huggins 1.025 (1.005-1.030) 12/23/17 18:41 Urine Protein NEGATIVE mg/dL (NEGATIVE) 12/23/17 18:41 Urine Glucose (UA) NEGATIVE mg/dL (NEGATIVE) 12/23/17 18:41 Urine Ketones TRACE mg/dL (NEGATIVE) 12/23/17 18:41 Urine Blood SMALL (NEGATIVE) H 12/23/17 18:41 Urine Nitrate NEGATIVE (NEGATIVE) 12/23/17 18:41 Urine Bilirubin NEGATIVE (NEGATIVE) 12/23/17 18:41 Urine Urobilinogen 0.2 E.U./dL (0.2 - 1.0) 12/23/17 18:41 Ur Leukocyte Esterase NEGATIVE (NEGATIVE) 12/23/17 18:41 Urine RBC 5-10 /hpf (0-5) H 12/23/17 18:41 Urine WBC 0-2 /hpf (0-5) 12/23/17 18:41 Ur Epithelial Cells FEW /lpf (FEW) 12/23/17 18:41 Urine Bacteria FEW /hpf (NONE SEEN) 12/23/17 18:41 Urine Mucus FEW /lpf (FEW) 12/23/17 18:41 - Physical Exam Vitals and I&O: Vital Signs Temp 97.2 F 12/25/17 08:30 Pulse 66 12/25/17 13:16 Resp 18 12/25/17 13:16 BP 154/74 12/25/17 08:30 Pulse Ox 99 12/25/17 13:16 Intake & Output 12/24/17 12/25/17 12/25/17 18:59 06:59 18:59 Intake Total 1200 450 Balance 1200 450 Weight (lbs) 68.748 kg 74.871 kg Intake: Intake, IV Amount 250 50 Azithromycin 500 mg In 250 Sodium Chloride 0.9% 250 ml @ 250 mls/hr IV Q24HR [facility] Rx#:[id number] cefTRIAXone 1 gm In 50 Sodium Chloride 0.9% 50 ml @ 100 mls/hr IV HS [facility] Rx#:[id number] Oral 950 400 Other: # Voids 3 2 # Bowel Movements 0 0 Weight Source Bedscale Bedscale Active Medications: Current Medications Acetaminophen (Tylenol) 650 mg PO Q4HR PRN PRN Reason: Pain (Mild) Stop: 02/22/18 07:59 Acetaminophen (Tylenol Extra Strength) 500 mg PO Q4HR PRN PRN Reason: Pain (Moderate) Stop: 02/22/18 07:59 Al Hydrox/Mg Hydrox/Simethicone (Maalox) 30 ml PO Q4HR PRN PRN Reason: GI DISTRESS Stop: 02/22/18 07:59 Albuterol Sulfate (Albuterol 2.5mg/3ml Neb Ud) 2.5 mg HHN Q4HRT PRN PRN Reason: Congestion/sob Stop: 02/21/18 21:59 Last Admin: 12/23/17 22:41 Dose: 2.5 mg Albuterol Sulfate (Albuterol 2.5mg/3ml Neb Ud) 2.5 mg HHN Q6HRT [facility] Stop: 02/22/18 12:59 Last Admin: 12/25/17 13:16 Dose: 2.5 mg Amlodipine Besylate (Norvasc) 5 mg PO DAILY [facility] Stop: 02/22/18 08:59 Last Admin: 12/25/17 08:17 Dose: 5 mg Bisacodyl (Dulcolax 10 Mg Supp) 10 mg RC DAILY PRN PRN Reason: Constipation Stop: 02/22/18 07:59 Calcium/Vitamin D (Oscal W/Vitamin D) 1 tab PO DAILY [facility] Stop: 02/22/18 08:59 Last Admin: 12/25/17 08:17 Dose: 1 tab Docusate Sodium (Colace) 100 mg PO BID [facility] Stop: 02/22/18 08:59 Last Admin: 12/25/17 08:18 Dose: 100 mg Donepezil HCl (Aricept) [address] [facility] Stop: 02/22/18 20:59 Last Admin: 12/24/17 21:48 Dose: 10 mg Azithromycin 500 mg/ Sodium (Chloride) 250 mls @ 250 mls/hr IV Q24HR [facility] Stop: 02/22/18 08:59 Last Admin: 12/25/17 08:37 Dose: 250 mls/hr Ceftriaxone Sodium 1 gm/ (Sodium Chloride) 50 mls @ 100 mls/hr IV HS [facility] Stop: 02/22/18 20:59 Last Infusion: 12/24/17 22:20 Dose: Infused Lactobacillus Rhamnosus (Culturelle 15b) 1 each PO DAILY [facility] Stop: 02/24/18 08:59 Magnesium Hydroxide (Milk Of Magnesia) 30 ml PO HS PRN PRN Reason: Constipation Stop: 02/22/18 07:59 Last Admin: 12/24/17 09:24 Dose: 30 ml Memantine (Namenda) 10 mg PO BID [facility] Stop: 02/22/18 08:59 Last Admin: 12/25/17 08:18 Dose: 10 mg Miscellaneous (Probiotic Screen) 1 ea MC PRN PRN PRN Reason: PROTOCOL Stop: 02/23/18 13:15 Mupirocin (Bactroban Oint) 1 appl NS BID [facility] Stop: 12/30/17 09:01 Pantoprazole Sodium (Protonix) 40 mg PO DAILY [facility] Stop: 02/22/18 08:59 Last Admin: 12/25/17 08:17 Dose: 40 mg Paroxetine HCl (Paxil) 10 mg PO DAILY [facility]; Protocol Stop: 02/22/18 08:59 Last Admin: 12/25/17 08:18 Dose: 10 mg Sodium Phosphate (Fleet Enema) 135 ml RC Q48HR PRN PRN Reason: Constipation Stop: 02/22/18 07:59 Thiamine HCl (Vitamin B1) 100 mg PO DAILY [facility] Stop: 02/23/18 08:59 Last Admin: 12/25/17 08:17 Dose: 100 mg General: alert HEENT: NC/AT Neck: Supple Lungs: rales, ronchi Cardiovascular: RRR, Normal S1, Normal S2 Abdomen: soft, non-tender Extremities: clear Neurological: no change, alert - Procedures Procedures: Procedures Procedure Code Date GROUP PSYCHOTHERAPY 84132 06/14/15 GROUP PSYCHOTHERAPY [id number] 06/14/15 INSERT EMERGENCY AIRWAY 36713 09/17/16 INSERTION OF ENDOTRACHEAL AIRWAY INTO [place], VIA OPENING [id number] 09/17/16 RESPIRATORY VENTILATION, 24-96 CONSECUTIVE HOURS [id number] 09/17/16 VENT MGMT INPAT INIT DAY 09/17/16 VENT MGMT INPAT SUBQ 09/17/16 Internal Medicine Assmt/Plan - Assessment Assessment: pneumonia h/o chf h/o cough h/o dementia h/o hematuria h/o uti h/o sepsis h/o cystitis h/o asthma h/o arthritis - Plan Plan: as per order sheet
[2017-12-25] MEDS: cefTRIAXone 1 GM in Sodium Chloride 0.9% 50 ML IV SCH (20:13)
[2017-12-25] MEDS: methylPREDNISolone SS 40 mg Vial IVP SCH (20:14)
[2017-12-26] MEDS: Albuterol Nebulizer 2.5mg/3mL HHN SCH ×4 (00:37→19:32)
[2017-12-26] MEDS: methylPREDNISolone SS 40 mg Vial IVP SCH ×3 (04:35→20:21)
[2017-12-26] MEDS: Multivitamin w/ Minerals Tab PO SCH (08:50)
[2017-12-26] MEDS: Lactobacillus Rhamnosus GG 15 Billion CFU CAP.SPRINK PO SCH (08:50)
[2017-12-26] MEDS: Calcium Carb/Vit D 500 mg/200 U Tab PO SCH (08:51)
[2017-12-26] MEDS: Pantoprazole 40 mg EC Tab PO SCH (08:51)
[2017-12-26] MEDS: Azithromycin 500 MG in Sodium Chloride 0.9% 250 ML IV SCH (10:58)
--- NOTE | 2017-12-26 15:30 | Consultation ---
DATE OF CONSULTATION: 12/25/[address] Layne. Thank you very much Dr. Layne for this consultation. HISTORY OF PRESENT ILLNESS: The patient is an 82-year-old male who has history of dementia, weakness, dysphagia, assisted resident, presents with cough, congestion, shortness of breath, was admitted for treatment and management. The patient appears to be doing a little bit better. He is awake, but not talking much. He has underlying history of COPD and emphysema. REVIEW OF SYSTEMS: Unable to obtain because the patient's condition. PHYSICAL EXAMINATION: GENERAL: The patient is awake, not in acute distress. VITAL SIGNS: Temperature is 97.7, pulse , respiration 19, blood pressure 148/68, saturation 94%. HEENT: Atraumatic, normocephalic. Pupils reactive to light and accommodation. Ears, nose and throat normal. NECK: Supple. No JVD. CHEST: There is rhonchi and wheezing bilaterally. HEART: Regular rhythm. ABDOMEN: Soft and nontender. EXTREMITIES: No edema. Chest x-ray and CT shows bilateral COPD and emphysema changes, some consolidation bilaterally and nodularity as well. LABORATORY DATA: WBC is 9.9, hemoglobin is 14.4, hematocrit 42.7, platelets 267. Sodium 136, potassium 4.0, BUN is 19, and creatinine 0.8. IMPRESSION: This is an 82-year-old male with: 1. Respiratory failure. 2. Pneumonia. 3. Chronic obstructive pulmonary disease exacerbation. PLAN: 1. Continue antibiotics. 2. Nebulizer treatment. 3. Add low dose steroids. 4. Follow up chest x-ray. I will follow the patient with you. JOB# [id number]
[2017-12-26] MEDS: cefTRIAXone 1 GM in Sodium Chloride 0.9% 50 ML IV SCH (20:20)
--- NOTE | 2017-12-26 23:51 | Progress Notes ---
DATE: 12/26/2017 SUBJECTIVE: The patient was seen in his room. The patient is awake, but poor historian due to medical condition. Otherwise, the patient appears to be in no acute distress. OBJECTIVE: VITAL SIGNS: Temperature 98.6, heart rate 70, blood pressure 153/51, respirations 18, 100% on 2 liters by nasal cannula. HEENT: Head is atraumatic and normocephalic. Eyes: Bilateral conjunctivae are clear. Bilateral pupils are equally round and reactive. NECK: Supple. No JVD. CARDIOVASCULAR: S1 and S2, without murmur. PULMONARY: Decreased breath sounds with fine scattered rhonchi. GASTROINTESTINAL: Soft and nontender without guarding. Positive bowel sounds. MUSCULOSKELETAL: No clubbing. No cyanosis noted. ASSESSMENT: 1. Pneumonia. 2. History of congestive heart failure. 3. Osteoarthritis. 4. Bipolar disorder. 5. Dementia. 6. Gastroesophageal reflux disease. PLAN: We will continue current antibiotics. We will follow up with the sleever and psychiatrist to monitor the patient's condition and behavior. Treatment plans were discussed with the patient's nurse. Treatment plans were discussed with Dr. Layne. JOB# [id number]
[2017-12-27] MEDS: Albuterol Nebulizer 2.5mg/3mL HHN SCH ×4 (03:00→19:12)
[2017-12-27] MEDS: methylPREDNISolone SS 40 mg Vial IVP SCH ×2 (05:24→13:52)
[2017-12-27] MEDS: Pantoprazole 40 mg EC Tab PO SCH (08:27)
[2017-12-27] MEDS: Lactobacillus Rhamnosus GG 15 Billion CFU CAP.SPRINK PO SCH (08:27)
[2017-12-27] MEDS: Multivitamin w/ Minerals Tab PO SCH (08:27)
[2017-12-27] MEDS: Calcium Carb/Vit D 500 mg/200 U Tab PO SCH (08:28)
[2017-12-27] MEDS: Azithromycin 500 MG in Sodium Chloride 0.9% 250 ML IV SCH (08:32)
--- NOTE | 2017-12-27 09:29 | Diagnostic Imaging Report ---
CHEST X-RAY: AP view INDICATION: Shortness of breath COMPARISON: 12/23/2017 FINDINGS: Chronic lung changes are seen. No focal consolidation or effusions. Heart size is normal. Atheromatosis is noted. Postsurgical changes of the lower cervical and upper thoracic spine are noted. IMPRESSION: Chronic interstitial lung changes. No focal consolidation identified.
--- NOTE | 2017-12-27 11:25 | Internal Medicine Prog Note ---
Internal Medicine Subjective - Subjective Patient seen and examined:: chart reviewed Patient is:: awake, verbal, talking, congested, other (no distress awake alert) Patient Complaints of:: congestion, cough Per staff patient has:: no adverse event, tolerating meds Internal Medicine Objective - Results Result Diagrams: 12/24/17 05:10 12/24/17 05:10 Recent Labs: Laboratory Last Values WBC 9.9 Th/cmm (4.8-10.8) 12/24/17 05:10 RBC 4.71 Mil/cmm (3.80-5.80) 12/24/17 05:10 Hgb 14.4 gm/dL (12-16) 12/24/17 05:10 Hct 42.7 % (41.0-60) 12/24/17 05:10 MCV 90.7 fl (80-99) 12/24/17 05:10 MCH 30.5 pg (27.0-31.0) 12/24/17 05:10 MCHC Differential 33.6 pg (28.0-36.0) 12/24/17 05:10 RDW 14.2 % (11.5-20.0) 12/24/17 05:10 Plt Count 267 Th/cmm (150-400) 12/24/17 05:10 MPV 8.3 fl 12/24/17 05:10 Neutrophils % 63.6 % (40.0-80.0) 12/24/17 05:10 Lymphocytes % 23.1 % (20.0-50.0) 12/24/17 05:10 Monocytes % 7.4 % (2.0-10.0) 12/24/17 05:10 Eosinophils % 4.8 % (0.0-5.0) 12/24/17 05:10 Basophils % 1.1 % (0.0-2.0) 12/24/17 05:10 PT 11.6 SECONDS (9.5-11.5) H 12/23/17 17:25 INR 1.13 (0.5-1.4) 12/23/17 17:25 PTT (Actin FS) 26.4 SECONDS (26.0-38.0) 12/23/17 17:25 Sodium 136 mEq/L (136-145) 12/24/17 05:10 Potassium 4.0 mEq/L (3.5-5.1) 12/24/17 05:10 Chloride 106 mEq/L (98-107) 12/24/17 05:10 Carbon Dioxide 23.0 mEq/L (21.0-31.0) 12/24/17 05:10 Anion Gap 11.0 (7.0-16.0) 12/24/17 05:10 BUN 19 mg/dL (7-25) 12/24/17 05:10 Creatinine 0.8 mg/dL (0.7-1.3) 12/24/17 05:10 Est GFR ( Amer) TNP 12/24/17 05:10 Est GFR (Non-Af Amer) TNP 12/24/17 05:10 BUN/Creatinine Ratio 23.8 12/24/17 05:10 Glucose 103 mg/dL (70-105) 12/24/17 05:10 Whole Bld Lactic Acid 1.32 mmol/L (0.60-1.99) 12/23/17 17:25 Calcium 8.8 mg/dL (8.6-10.3) 12/24/17 05:10 Total Bilirubin 0.4 mg/dL (0.3-1.0) 12/24/17 05:10 AST 13 U/L (13-39) 12/24/17 05:10 ALT 7 U/L (7-52) 12/24/17 05:10 Alkaline Phosphatase 78 U/L (34-104) 12/24/17 05:10 Creatine Kinase 55 U/L (30-223) 12/23/17 17:25 Troponin I 0.01 ng/mL (0.01-0.05) 12/23/17 17:25 B-Natriuretic Peptide 92.7 pg/mL (5.0-100.0) 12/23/17 17:25 Total Protein 6.2 gm/dL (6.0-8.3) 12/24/17 05:10 Albumin 3.3 gm/dL (4.2-5.5) L 12/24/17 05:10 Globulin 2.9 gm/dL 12/24/17 05:10 Albumin/Globulin Ratio 1.1 (1.0-1.8) 12/24/17 05:10 Triglycerides 113 mg/dL (<150) 12/23/17 17:25 Cholesterol 136 mg/dL (<200) 12/23/17 17:25 LDL Cholesterol Direct 92 mg/dL (75-193) 12/23/17 17:25 HDL Cholesterol 32 mg/dL (23-92) 12/23/17 17:25 Urine Source MIDSTREAM 12/23/17 18:41 Urine Color YELLOW 12/23/17 18:41 Urine Clarity CLEAR (CLEAR) 12/23/17 18:41 Urine pH 6.0 (4.6 - 8.0) 12/23/17 18:41 Ur Specific [place] 1.025 (1.005-1.030) 12/23/17 18:41 Urine Protein NEGATIVE mg/dL (NEGATIVE) 12/23/17 18:41 Urine Glucose (UA) NEGATIVE mg/dL (NEGATIVE) 12/23/17 18:41 Urine Ketones TRACE mg/dL (NEGATIVE) 12/23/17 18:41 Urine Blood SMALL (NEGATIVE) H 12/23/17 18:41 Urine Nitrate NEGATIVE (NEGATIVE) 12/23/17 18:41 Urine Bilirubin NEGATIVE (NEGATIVE) 12/23/17 18:41 Urine Urobilinogen 0.2 E.U./dL (0.2 - 1.0) 12/23/17 18:41 Ur Leukocyte Esterase NEGATIVE (NEGATIVE) 12/23/17 18:41 Urine RBC 5-10 /hpf (0-5) H 12/23/17 18:41 Urine WBC 0-2 /hpf (0-5) 12/23/17 18:41 Ur Epithelial Cells FEW /lpf (FEW) 12/23/17 18:41 Urine Bacteria FEW /hpf (NONE SEEN) 12/23/17 18:41 Urine Mucus FEW /lpf (FEW) 12/23/17 18:41 - Physical Exam Vitals and I&O: Vital Signs Temp 97.0 F 12/27/17 07:52 Pulse 77 12/27/17 08:28 Resp 18 12/27/17 07:52 BP 187/87 12/27/17 08:28 Pulse Ox 97 12/27/17 07:52 Intake & Output 12/26/17 12/27/17 12/27/17 18:59 06:59 18:59 Intake Total 250 50 Balance 250 50 Weight (lbs) 69.4 kg Intake: Intake, IV Amount 250 50 Azithromycin 500 mg In 250 Sodium Chloride 0.9% 250 ml @ 250 mls/hr IV Q24HR [facility] Rx#:[id number] cefTRIAXone 1 gm In 50 Sodium Chloride 0.9% 50 ml @ 100 mls/hr IV HS [facility] Rx#:[id number] Other: Weight Source Bedscale Active Medications: Current Medications Acetaminophen (Tylenol) 650 mg PO Q4HR PRN PRN Reason: Pain (Mild) Stop: 02/22/18 07:59 Acetaminophen (Tylenol Extra Strength) 500 mg PO Q4HR PRN PRN Reason: Pain (Moderate) Stop: 02/22/18 07:59 Al Hydrox/Mg Hydrox/Simethicone (Maalox) 30 ml PO Q4HR PRN PRN Reason: GI DISTRESS Stop: 02/22/18 07:59 Albuterol Sulfate (Albuterol 2.5mg/3ml Neb Ud) 2.5 mg HHN Q4HRT PRN PRN Reason: Congestion/sob Stop: 02/21/18 21:59 Last Admin: 12/23/17 22:41 Dose: 2.5 mg Albuterol Sulfate (Albuterol 2.5mg/3ml Neb Ud) 2.5 mg HHN Q6HRT [facility] Stop: 02/22/18 12:59 Last Admin: 12/27/17 06:31 Dose: 2.5 mg Amlodipine Besylate (Norvasc) 5 mg PO DAILY [facility] Stop: 02/22/18 08:59 Last Admin: 12/27/17 08:28 Dose: 5 mg Bisacodyl (Dulcolax 10 Mg Supp) 10 mg RC DAILY PRN PRN Reason: Constipation Stop: 02/22/18 07:59 Calcium/Vitamin D (Oscal W/Vitamin D) 1 tab PO DAILY [facility] Stop: 02/22/18 08:59 Last Admin: 12/27/17 08:28 Dose: 1 tab Docusate Sodium (Colace) 100 mg PO BID [facility] Stop: 02/22/18 08:59 Last Admin: 12/27/17 08:28 Dose: 100 mg Donepezil HCl (Aricept) 10 mg PO HS [facility] Stop: 02/22/18 20:59 Last Admin: 12/26/17 20:21 Dose: 10 mg Azithromycin 500 mg/ Sodium (Chloride) 250 mls @ 250 mls/hr IV Q24HR [facility] Stop: 02/22/18 08:59 Last Admin: 12/27/17 08:32 Dose: 250 mls/hr Ceftriaxone Sodium 1 gm/ (Sodium Chloride) 50 mls @ 100 mls/hr IV HS [facility] Stop: 02/22/18 20:59 Last Infusion: 12/26/17 20:50 Dose: Infused Lactobacillus Rhamnosus (Culturelle 15b) 1 each PO DAILY [facility] Stop: 02/24/18 08:59 Last Admin: 12/27/17 08:27 Dose: 1 each Magnesium Hydroxide (Milk Of Magnesia) 30 ml PO HS PRN PRN Reason: Constipation Stop: 02/22/18 07:59 Last Admin: 12/24/17 09:24 Dose: 30 ml Memantine (Namenda) 10 mg PO BID [facility] Stop: 02/22/18 08:59 Last Admin: 12/27/17 08:28 Dose: 10 mg Methylprednisolone Sodium Succinate (Solu-Medrol) 40 mg IVP Q8HR [facility] Stop: 02/23/18 20:59 Last Admin: 12/27/17 05:24 Dose: 40 mg Miscellaneous (Probiotic Screen) 1 ea MC PRN PRN PRN Reason: PROTOCOL Stop: 02/23/18 13:15 Mupirocin (Bactroban Oint) 1 appl NS BID [facility] Stop: 12/30/17 09:01 Last Admin: 12/27/17 08:28 Dose: 1 appl Pantoprazole Sodium (Protonix) 40 mg PO DAILY [facility] Stop: 02/22/18 08:59 Last Admin: 12/27/17 08:27 Dose: 40 mg Paroxetine HCl (Paxil) 10 mg PO DAILY [facility]; Protocol Stop: 02/22/18 08:59 Last Admin: 12/27/17 08:27 Dose: 10 mg Sodium Phosphate (Fleet Enema) 135 ml RC Q48HR PRN PRN Reason: Constipation Stop: 02/22/18 07:59 Thiamine HCl (Vitamin B1) 100 mg PO DAILY [facility] Stop: 02/23/18 08:59 Last Admin: 12/27/17 08:28 Dose: 100 mg General: alert HEENT: NC/AT Neck: Supple Lungs: rales, ronchi Cardiovascular: RRR, Normal S1, Normal S2 Abdomen: soft, non-tender Extremities: clear Neurological: no change, alert - Procedures Procedures: Procedures Procedure Code Date GROUP PSYCHOTHERAPY 20178 06/14/15 GROUP PSYCHOTHERAPY [id number] 06/14/15 INSERT EMERGENCY AIRWAY 19216 09/17/16 INSERTION OF ENDOTRACHEAL AIRWAY INTO [place], VIA OPENING [id number] 09/17/16 RESPIRATORY VENTILATION, 24-96 CONSECUTIVE HOURS [id number] 09/17/16 VENT MGMT INPAT INIT 09/17/16 VENT MGMT INPAT SUBQ 09/17/16 Internal Medicine Assmt/Plan - Assessment Assessment: pneumonia h/o chf h/o cough h/o dementia h/o hematuria h/o uti h/o sepsis h/o cystitis h/o asthma h/o arthritis - Plan Plan: as per order sheet Nutritional Asmnt/Malnutr-PDOC - Dietary Evaluation Malnutrition Findings (Please click <Entered> for more info): Nutritional Asmnt/Malnutrition Start: 12/26/17 14: 38 Text: Status: Complete Freq: Protocol: Document 12/26/17 14:38 MMULMERLENE (Rec: 12/26/17 14:50 MMULMERLENE RUSHING FN) Nutritional Asmnt/Malnutrition Patient General Information Nutritional Screening Consult Diagnosis pneumonia Pertinent Medical Hx/Surgical Hx coronary artery disease, congestive heart failure, asthma, COPD, history of arthritis, severe dementia, psychosis, bipolar disorder Subjective Information Consult received for sacral- coccygeal/buttock wounds. patient with moderate temporal muscle wasting. Current Diet Order/ Nutrition Support Pureed Patient / S.O Not Indicated Pertinent Medications maalox, abx, dulcolax, oscal w /D, colace, culturelle, MOM, solu-medrol, protonix, fleet enema, Vitamin B1 Pertinent Labs (12/24) Albumin 3.3 Nutritional Hx/Data Height 1.8 m Height (Calculated Centimeters) 180.3 Current Weight (lbs) 69.4 kg Weight (Calculated Kilograms) 69.4 Weight (Calculated Grams) 72329.6 [place] Body Weight 172 % [place] Body Weight 89 Body Mass Index (BMI) 21.3 Recent Weight Change No Weight Status Approriate GI Symptoms GI Symptoms None Last BM none noted since admission Difficult in: None Food Allergies No Cultural/Ethnic/Yarsani Belief none indicated Skin Integrity/Comment: Rad 12, per wound juliocesar nurse , wounds to 1. Sacral coccygeal area near superior aspect of gluteal cleft: 2. Left Sacral/buttock area: 3. Bilateral Inguinal area: 4. Scrotal area: 5. Perineal area: 6. Abdominal folds: Current %PO Good (75-100%) Estimated Nutritional Goals BEE in Kcals: Adj wt of IBW Calories/Kcals/Kg using IBW 78.1kg 25-30 kcal/kg Kcals Calculated ~7150-1665 kcal/day Protein: Adj wt of IBW Protein g/kg: using IBW 1.1-1.3 gm/kg Protein Calculated ~85-101 gm/day Fluid: ml ~2034-5295 ml/day (1 ml/kcal) Nutritional Problem 1. Problem Problem increased nutrient needs related to Etiology impaired skin integrity aeb Signs/Symptoms: Wound on coccyx Intervention/Recommendation Comments 1. Continue pureed diet as tolerated by patient as it is adequate to meet calorie and protein needs. 2. Consider adding MVI and Vitamin C daily, and [place] 2 packets/day for optimal wound healing. Expected Outcomes/Goals Expected Outcomes/Goals Oral intake >75% of meals, weight stable, nutrition related labs WNL, improved skin integrity.
== END 2017-12-27 19:45 | DRG 871 ==
LOC: ER 16:54 → TELE 20:02 → MSI 12-27 16:09
PROVIDERS: ADMIT Internal Medicine; ATTEND Internal Medicine
DX: A41.9 Sepsis, unspecified organism (principal); J18.9 Pneumonia, unspecified organism; J96.90 Respiratory failure, unspecified, unspecified whether with hypoxia or hypercapnia; J44.0 Chronic obstructive pulmonary disease with (acute) lower respiratory infection; J44.1 Chronic obstructive pulmonary disease with (acute) exacerbation; N30.91 Cystitis, unspecified with hematuria; I50.9 Heart failure, unspecified; I25.10 Atherosclerotic heart disease of native coronary artery without angina pectoris; M19.90 Unspecified osteoarthritis, unspecified site; F03.90 Unspecified dementia, unspecified severity, without behavioral disturbance, psychotic disturbance, mood disturbance, and anxiety; K21.9 Gastro-esophageal reflux disease without esophagitis; Z88.1 Allergy status to other antibiotic agents; Z88.8 Allergy status to other drugs, medicaments and biological substances
CPT/HCPCS: 36415-UA; 71045-TC; 71250-TC; 80053-TC; 80061-TC; 81001-TC; 82550-TC; 83605; 83880-TC; 84484-TC; 85025-TC; 85610-TC; 85730-TC; 87086-90; 93005; 94760; J0456; J0696; J2920; J7040; J7613; Z7610

== ENCOUNTER 2018-07-17 08:18 | Inpatient (IN) | payer MEDICARE, MEDICAID ==
--- NOTE | 2018-07-17 08:53 | ED Physician Chart ---
ED Chief Complaint/HPI - Patient Information Date Seen:: 07/17/18 Time Seen:: 08:49 Chief Complaint:: sob History of Present Illness:: 83 yr old male from care home for fever sob hx of copd ht dz and pnemonia Allergies:: Allergies Allergy/AdvReac Type Severity Reaction Status Date / Time aspirin Allergy Verified 04/26/18 16:15 levofloxacin [From Levaquin] Allergy Verified 04/26/18 16:15 Vitals:: Vital Signs - 8 hr 07/17/18 08:32 Temp 98.2 F HR 89 RR 20 BP 121/65 O2 Sat % 98 ED Review of Systems - Review of Systems General/Constitutional: Fever Skin: No skin lesions, No rash, No bruising Head: No headache, No light-headedness Eyes: No loss of vision, No pain, No diplopia ENT: No earache, No nasal drainage, No sore throat, No tinnitus Neck: No neck pain, No swelling, No thyromegaly, No stiffness, No mass noted Cardio Vascular: No chest pain, No palpitations, No PND, No orthopnea, No edema Pulmonary: SOB GI: No nausea, No vomiting, No diarrhea, No pain, No melena, No hematochezia, No constipation, No hematemesis G/U: No dysuria, No frequency, No hematuria Musculoskeletal: No bone or joint pain, No back pain, No muscle pain Endocrine: No polyuria, No polydipsia Psychiatric: No prior psych history, No depression, No anxiety, No suicidal ideation Hematopoietic: No bruising, No lymphadenopathy Allergic/Immuno: No urticaria, No angioedema Neurological: No syncope, No focal symptoms, No weakness, No paresthesia, No headache, No seizure, No dizziness, No confusion, No vertigo Family Medical History - Family Member Mother History Unknown: Yes Ethnicity: Non- Living Status: Unknown Hx Family Cancer: No Hx Family Coronary Artery Disease: No Hx Family Congestive Heart Failure: No Hx Family Hypertension: No Hx Family Stroke: No Hx Family Diabetes: No Hx Family Seizures: No Hx Family Dementia: No Hx Family AIDS: No Hx Family HIV: No Hx Family COPD: No Hx Family Hepatitis: No Hx Family Psychiatric Problems: No Hx Family Tuberculosis: No ED Septic Shock - . Is Septic Shock (SBP<90, OR Lactate>4 mmol\L) present?: No - <6hrs of presentation: Vital Signs: Vital Signs - 8 hr 07/17/18 08:32 Temp 98.2 F HR 89 RR 20 BP 121/65 O2 Sat % 98 ED Reassessment (Disposition) - Reassessment Reassessment:: fever sob - Diagnosis Diagnosis:: fever sob - Patient Disposition Discharge/Transfer:: Acute Care w/in this hosp Admitted to:: Telemetry Condition at Disposition:: Stable
[2018-07-17] MEDS ORDERED: Albuterol/Ipratropium Neb 3 ML AERS HHN ONE ×2 (09:13→09:40)
[2018-07-17 09:14] LABS: HEMATOCRIT 51.6 % (41.0-60); HEMOGLOBIN 16.9 gm/dL (12-16); MEAN CELL VOLUME 92.1 fl (80-99); MEAN CORPUSCULAR HEMOGLOBIN 30.2 pg (27.0-31.0); MEAN CORPUSCULAR HGB CONC 32.7 pg (28.0-36.0); MEAN PLATELET VOLUME 10.1 fl; PLATELET COUNT 271 Th/cmm (150-400); RED CELL DISTRIBUTION WIDTH 15.5 % (11.5-20.0)
[2018-07-17] MEDS ORDERED: Dexamethasone Sodium Phos 4 mg/mL Vial INH STA (09:14)
[2018-07-17 09:19] LABS: WHITE BLOOD COUNT 20.1 Th/cmm (4.8-10.8)
[2018-07-17 09:29] LABS: ALB/GLOB RATIO 0.9 (1.0-1.8); ALBUMIN 3.8 gm/dL (4.2-5.5); ALKALINE PHOSPHATASE 83 U/L (34-104); ANION GAP 20.1 (7.0-16.0); BILIRUBIN,TOTAL 0.7 mg/dL (0.3-1.0); CALCIUM SERUM 9.6 mg/dL (8.6-10.3); CARBON DIOXIDE 25.9 mEq/L (21.0-31.0); CHLORIDE 121 mEq/L (98-107); GLUCOSE 150 mg/dL (70-105); SGOT 20 U/L (13-39); SGPT/ALT 14 U/L (7-52); TOTAL PROTEIN,SERUM 8.1 gm/dL (6.0-8.3)
[2018-07-17] MEDS ORDERED: Dexamethasone Sodium Phos 4 mg/mL Vial ONE (09:39)
[2018-07-17 09:43] LABS: BUN - UREA NITROGEN 102 mg/dL (7-25); CREATININE - SERUM 4.3 mg/dL (0.7-1.3)
[2018-07-17 09:44] LABS: SODIUM SERUM 163 mEq/L (136-145)
[2018-07-17] MEDS ORDERED: Piperacillin Sodium/Tazobact 3.375 gm Vial IV ONE (09:44)
[2018-07-17] MEDS ORDERED: Lactated Ringer 1,000 ML IV ONE (09:46)
[2018-07-17 10:00] LABS: BAND NEUTROPHILE 4 % (0-10); BASOPHIL 0 % (0-3); EOSINOPHIL 0 % (0-5); LYMPHOCYTE 7 % (20-50); MONOCYTE 5 % (2-10); NEUTROPHILS 84 % (40-80)
[2018-07-17 11:52] LABS: URINE SOURCE CLEAN C
[2018-07-17 12:00] LABS: URINE BILIRUBIN NEGATIVE (NEGATIVE); URINE BLOOD MODERATE (NEGATIVE); URINE GLUCOSE (UA) NEGATIVE (NEGATIVE); URINE KETONE NEGATIVE (NEGATIVE); URINE LEUKOCYTE ESTERASE NEGATIVE (NEGATIVE); URINE MICROSCOPIC INDICATED? YES; URINE NITRATE NEGATIVE (NEGATIVE); URINE PROTEIN NEGATIVE (NEGATIVE); URINE UROBILINOGEN 0.2 E.U./dL (0.2 - 1.0)
[2018-07-17 12:08] LABS: URINE CLARITY SLIGHTLY HAZY (CLEAR); URINE COLOR YELLOW
[2018-07-17 12:13] LABS: URINE BACTERIA FEW /hpf (NONE SEEN); URINE EPITHELIAL CELLS OCCASIONAL /lpf (FEW)
[2018-07-17] MEDS: Sodium Chloride 0.45% 1,000 ML IV SCH (12:57)
[2018-07-17] MEDS ORDERED: Pneumococcal Vaccine 0.5 mL Vial IM ONE (15:01)
[2018-07-17] MEDS ORDERED: Acetaminophen 500 MG TAB PO PRN (15:16)
[2018-07-17] MEDS ORDERED: Non-Formulary Item 1 EA (Acetaminophen [Acetaminophen Er] 650 MG) PO PRN ×2 (15:16)
[2018-07-17] MEDS ORDERED: Piperacillin Sodium/Tazobact 2.25 gm Vial IV ONE (20:50)
[2018-07-17] MEDS: Piperacillin/Tazobact 2.25 gm in 0.9% NS 50 ML IV SCH (20:55)
[2018-07-18] MEDS: Albuterol Nebulizer 2.5mg/3mL HHN PRN ×4 (00:32→15:01)
[2018-07-18] MEDS: Sodium Chloride 0.45% 1,000 ML IV SCH ×2 (01:42→10:00)
[2018-07-18] MEDS: Piperacillin/Tazobact 2.25 gm in 0.9% NS 50 ML IV SCH ×3 (04:41→20:29)
[2018-07-18] MEDS ORDERED: Piperacillin Sodium/Tazobact 2.25 gm Vial IV ONE (04:41)
[2018-07-18 05:47] LABS: ANION GAP 15.5 (7.0-16.0); CALCIUM SERUM 8.3 mg/dL (8.6-10.3); CARBON DIOXIDE 24.2 mEq/L (21.0-31.0); CHLORIDE 123 mEq/L (98-107); CREATININE - SERUM 3.1 mg/dL (0.7-1.3); GLUCOSE 111 mg/dL (70-105); POTASSIUM SERUM 3.7 mEq/L (3.5-5.1)
[2018-07-18 05:51] LABS: BUN - UREA NITROGEN 95 mg/dL (7-25); SODIUM SERUM 159 mEq/L (136-145)
--- NOTE | 2018-07-18 09:54 | Diagnostic Imaging Report ---
Portable chest x-ray Time: 0 854 History: Shortness of breath Allowing for portable technique the heart size is normal. No focal pulmonary parenchymal processes. No hilar or mediastinal abnormalities. Impression: No acute abnormalities.
[2018-07-18 10:16] LABS: pH 7.291 (7.35-7.45)
[2018-07-18 10:17] LABS: PaCO2 51.9 mmHg (35.0-45.0); PaO2 81.1 mmHg (80.0-100.0); sO2c 94.6 % (92.0-100.0)
[2018-07-18 11:29] LABS: RED BLOOD COUNT 4.64 Mil/cmm (3.80-5.80)
[2018-07-18 11:32] LABS: % LYMPHOCYTES 7.2 % (20.0-50.0); % MONOCYTES 6.8 % (2.0-10.0); % NEUTROPHILS 85.8 % (40.0-80.0); HEMATOCRIT 44.7 % (41.0-60); MEAN CELL VOLUME 96.2 fl (80-99); MEAN CORPUSCULAR HEMOGLOBIN 30.1 pg (27.0-31.0); MEAN CORPUSCULAR HGB CONC 31.3 pg (28.0-36.0); MEAN PLATELET VOLUME 10.8 fl; PLATELET COUNT 218 Th/cmm (150-400); RED CELL DISTRIBUTION WIDTH 17.3 % (11.5-20.0)
[2018-07-18 11:33] LABS: % BASOPHILS 0.2 % (0.0-2.0); LYMPHOCYTE ABSOLUTE 1.3 Th/cmm (1.5-3.0); MONOCYTE ABSOLUTE 1.2 Th/cmm (0.3-1.0); NEUTROPHILE ABSOLUTE 15.6 Th/cmm (1.8-8.0); WHITE BLOOD COUNT 18.2 Th/cmm (4.8-10.8)
[2018-07-18] MEDS: methylPREDNISolone SS 40 mg Vial IVP SCH ×3 (12:45→23:35)
[2018-07-18] MEDS ORDERED: Dextrose 5% 1,000 ML IV SCH (16:15)
[2018-07-18] MEDS: Dextrose 5% 1,000 ML IV SCH (18:13)
[2018-07-18] MEDS: Albuterol Nebulizer 2.5mg/3mL HHN SCH ×2 (19:01→22:50)
--- NOTE | 2018-07-18 20:00 | History & Physical ---
ADMIT DATE: 07/17/2018 HISTORY OF PRESENT ILLNESS: I got a call from [place]. The patient was having fever and chills and chest x-ray was abnormal. The patient has already been treated, but he failed oral antibiotic therapy. He was complaining of still cough and bad chest pain. He had a repeat chest x-ray showing pneumonia. The patient was sent to [facility] by the ER and was evaluated and the patient found to have pneumonia, was admitted. PAST MEDICAL HISTORY: The patient has a history of psychosis and history of hypertension and history of seizure disorder in the past. PHYSICAL EXAMINATION: GENERAL: The patient is awake, alert, seems to be in acute respiratory distress. HEAD: Normal. ENT: Normal. LUNGS: Bilateral rales. CARDIOVASCULAR SYSTEM: S1, S2 heard. ABDOMEN: Soft. Bowel sounds are heard. CENTRAL NERVOUS SYSTEM: Grossly normal. LABORATORY DATA: Chest x-ray done in the Emergency Room, no hilar or mediastinal abnormalities and the patient was wheezing and his pulse ox was low. I reviewed the patient's labs and his white count was very high at ____ 18.4 and his blood gas showed pH of 7.29, pCO2 of 51. The patient has a past history of COPD, also his BUN and creatinine were 95 and 3.1. DIAGNOSES: Acute sepsis, possible pneumonia, leukocytosis, SIRS, acute on chronic renal failure, history of psychosis, rule out urinary tract infection. PLAN: The patient is being admitted. IV antibiotics have been administered. I have Dr. Duy Augustin and Dr. Sharma on the consult and I will follow the patient. JOB# [id number]
[2018-07-18 20:15] LABS: EOSINOPHIL SMEAR SOURCE URINE; EOSINOPHILS SMEAR COUNT NONE SEEN (NONE SEEN)
--- NOTE | 2018-07-18 22:38 | Consultation ---
DATE OF CONSULTATION: 07/18/2018 ATTENDING PHYSICIAN: Dr. Quincy Layne HISTORY OF PRESENT ILLNESS: This is an 83-year-old male with past medical history of COPD who came in because of fever. A few hours prior to admission, the patient developed fever of 102 degrees. Labs drawn at that time revealed a white count of 16.2. He was then brought to the Emergency Room. Chest x-ray done revealed no acute disease. His white count was 20.1. Lactic acid was 2.65 with a BNP of 77 and a troponin of 0.19. EKG revealed normal sinus rhythm. Three months prior to admission, his BUN/creatinine were 19/0.8. Labs drawn yesterday revealed a BUN/creatinine of 99/4.05 with sodium of 165. He was started on IV hydration and BUN/creatinine today were 95/3.1 and sodium of 159. There was no cough/congestion, chest pain, nausea and vomiting, abdominal pain, diarrhea, headaches. He did have some shortness of breath upon arrival at the Emergency Room. PAST MEDICAL HISTORY: 1. COPD. 2. Bronchial asthma. 3. CHF. 4. Essential hypertension. 5. CAD. 6. DJD. 7. GERD. 8. Dementia without behavioral disturbance. 9. History of pneumonia. CURRENT MEDICATIONS: Currently on acetaminophen, acetylcysteine, albuterol nebulizer, amlodipine, methylprednisolone, sodium chloride, Zosyn as well as pneumococcal vaccine. ALLERGIES: ALLERGIC TO ASPIRIN WELL LEVAQUIN. SOCIAL AND FAMILY HISTORY: I was not able to obtain directly from the patient because he remains nonverbal and on BiPAP. REVIEW OF SYSTEMS: Again I was not able to decipher because of the same reason. PHYSICAL EXAMINATION: GENERAL: The patient continues to be tachypneic, cachectic, on BiPAP. VITAL SIGNS: Blood pressure now is 107/40, pulse 76, temperature is 97.7 degrees. SKIN: Very poor turgor, warm, no rash, no jaundice appreciated. HEENT: Head: Normocephalic, atraumatic. Eyes: Unable to assess his extraocular muscles. Pupils are equal, round, reactive to light and accommodates. Anicteric sclerae. Pale conjunctivae. Nose: Midline nasal septum. Mouth: Dry mucosa, very poor dentition. NECK: Supple, no adenopathy, no thyromegaly, no bruits. Trachea palpated in the midline. CHEST AND CARDIOVASCULAR: S1, S2. No rub, murmur or gallop appreciated. Point of maximal impulse fifth intercostal space, left midclavicular line. No abdominal or femoral bruits appreciated. LUNGS: Equal expansion. No use of accessory muscles. No supraclavicular retractions. Decreased breath sounds, few rhonchi, but no rales nor wheezes appreciated. ABDOMEN: Scaphoid, soft, positive for bowel sounds. No bruits either diastolic or systolic. There is no muscle guarding or rebound. No pulsatile masses. RECTAL: Lax sphincter tone. GENITOURINARY: Normal appearing male genitalia. MUSCULOSKELETAL: No effusions present in his joints, but unable to assess his range of motion. EXTREMITIES: No evidence of any edema, cyanosis nor clubbing with palpable femoral, popliteal and dorsalis pedis pulses. NEUROLOGIC: The patient remains stuporous, on BiPAP, so I was not able to pursue further my neuro exam. LABORATORY AND DIAGNOSTIC DATA: Labs revealed sodium 159, potassium 3.7, chloride 123, BUN is 95, creatinine 3.1, glucose 111, calcium 8.3, BNP is 77, troponin is 0.19, albumin 3.8. IMPRESSION: 1. Acute kidney injury on chronic kidney disease. Chronic kidney disease is secondary to longstanding history of hypertension giving rise to hypertensive nephrosclerosis. The patient also has been exposed to numerous nephrotoxic medications. He could have developed chronic interstitial nephritis. Acute kidney injury in this particular case is initially prerenal. The patient came in very cachectic with poor skin turgor, dry oral mucosa and low blood pressure. The patient's appetite seemed to have declined and was not able to replenish both sensible and insensible fluid losses. Blood pressure is a bit on the low side. The patient then developed dehydration. However, over time, the patient's prerenal azotemia may have progressed to acute tubular injury. 2. Fever, possible pneumonitis. 3. Respiratory failure secondary to exacerbation of chronic obstructive pulmonary disease. 4. Exacerbation of chronic obstructive pulmonary disease, maybe possibly due to pneumonitis. 5. Dehydration. 6. Hypernatremia secondary to dehydration. 7. Elevated troponin, possibly demand ischemia with contribution from kidney failure. 8. Bronchial asthma. 9. History of congestive heart failure. 10. Essential hypertension with chronic kidney disease. 11. Coronary artery disease. 12. Degenerative joint disease. 13. Gastroesophageal reflux disease. 14. Dementia without behavioral disturbance. 15. History of pneumonia. PLAN: 1. Urine sodium, eosinophils, and creatinine. 2. Urine microalbumin to creatinine ratio. 3. Renal ultrasound. 4. Continue with IV hydration. 5. Breathing treatments. 6. Steroids. 7. Follow up electrolytes, CBC and chest x-ray. [facility]# [id number]
--- NOTE | 2018-07-18 23:01 | Consultation ---
DATE OF CONSULTATION: 07/18/[address] Layne. Thank you very much Dr. Layne for this consultation. HISTORY OF PRESENT ILLNESS: This is an 83-year-old male who was admitted with shortness of breath, and he was in respiratory distress earlier with abdominal breathing, increased work of breathing, desaturation, was placed on BiPAP, has improved since, breathing is much easier. OTHER PAST MEDICAL HISTORY: As above, history of dementia, dysphagia, and weakness. SOCIAL HISTORY: long term resident. REVIEW OF SYSTEMS: Unable to obtain because of the patient's condition. PHYSICAL EXAMINATION: GENERAL: The patient is on a BiPAP, in no acute distress. VITAL SIGNS: Temperature 97.8, pulse 72, respirations 18, blood pressure 173/77, and saturation 94-98%. HEENT: Atraumatic, normocephalic. Pupils react to light and accommodation. Ears, nose, and throat: Normal. NECK: Supple. No JVD. CHEST: There is rhonchi bilaterally. HEART: Regular rate and rhythm. ABDOMEN: Soft. EXTREMITIES: No edema. LABORATORY DATA: WBC is 18.2, hemoglobin is 14.0, and platelets 218. ABGs: pH 7.29, pCO2 51, pO2 81, bicarbonate 24, and saturation 94%. Sodium 159, potassium 3.7, BUN is 95, creatinine 3.1. Chest x-ray, right lower lobe infiltrate. IMPRESSION: 1. Respiratory failure. 2. Renal failure. 3. Sepsis. 4. Pneumonia. PLAN: 1. IV antibiotics. 2. Nebulized treatment. 3. BiPAP. 4. Decrease IV fluids for now and followup chest x-ray. I will follow the patient with you. Thank you very much for this consultation. JOB# [id number]
[2018-07-19] MEDS: Albuterol Nebulizer 2.5mg/3mL HHN SCH ×6 (02:45→23:07)
[2018-07-19] MEDS: Piperacillin/Tazobact 2.25 gm in 0.9% NS 50 ML IV SCH ×3 (05:34→21:01)
[2018-07-19] MEDS: methylPREDNISolone SS 40 mg Vial IVP SCH ×3 (05:38→17:01)
[2018-07-19 06:26] LABS: ANION GAP 13.8 (7.0-16.0); CALCIUM SERUM 8.7 mg/dL (8.6-10.3); CARBON DIOXIDE 24.2 mEq/L (21.0-31.0); CHLORIDE 122 mEq/L (98-107); CREATININE - SERUM 2.4 mg/dL (0.7-1.3); GLUCOSE 255 mg/dL (70-105); MAGNESIUM 2.9 mg/dL (1.9-2.7); PHOSPHOROUS 2.6 mg/dL (2.5-5.0); SODIUM SERUM 157 mEq/L (136-145); URIC ACID 9.8 mg/dL (4.4-7.6)
[2018-07-19 06:38] LABS: BUN - UREA NITROGEN 94 mg/dL (7-25)
[2018-07-19] MEDS: Dextrose 5% 1,000 ML IV SCH ×2 (08:14→20:59)
--- NOTE | 2018-07-19 08:18 | Diagnostic Imaging Report ---
CHEST X-RAY: AP view INDICATION: Shortness of breath COMPARISON: 07/17/2018 FINDINGS: Chronic lung changes are seen with right basal infiltrates. Heart size is normal. Atherosclerosis is noted. No significant effusion. IMPRESSION: Chronic lung changes with right basal infiltrate/pneumonia. Follow-up recommended to ensure resolution.
[2018-07-19] MEDS ORDERED: Vancomycin HCl 500 MG in Sodium Chloride 0.9% 100 ML IV ONE (09:00)
[2018-07-19 09:42] LABS: HEMOGLOBIN 13.2 gm/dL (12-16); RED BLOOD COUNT 4.39 Mil/cmm (3.80-5.80); WHITE BLOOD COUNT 16.4 Th/cmm (4.8-10.8)
[2018-07-19 09:43] LABS: HEMATOCRIT 41.5 % (41.0-60); MEAN CELL VOLUME 94.6 fl (80-99); MEAN CORPUSCULAR HEMOGLOBIN 30.1 pg (27.0-31.0); MEAN CORPUSCULAR HGB CONC 31.9 pg (28.0-36.0); MEAN PLATELET VOLUME 11.2 fl; PLATELET COUNT 200 Th/cmm (150-400); RED CELL DISTRIBUTION WIDTH 16.1 % (11.5-20.0)
[2018-07-19 09:44] LABS: % NEUTROPHILS 93.9 % (40.0-80.0)
[2018-07-19 09:45] LABS: % LYMPHOCYTES 4.8 % (20.0-50.0); % MONOCYTES 1.2 % (2.0-10.0)
--- NOTE | 2018-07-19 11:00 | Diagnostic Imaging Report ---
Renal ultrasound HISTORY: Abnormal renal function test The exam is extremely limited due to patient size, body habitus, respiratory motion, and difficulty in cooperation. The right kidney measures approximately 11.0 x 4.1 x 5.6 cm. No definite focal lesions. No hydronephrosis. The left kidney could not be identified with certainty. Limited evaluation of the urinary bladder due to lack of distention. No obvious intraluminal abnormalities. Incidentally noted is what appears to be an approximate 5 mm echogenic density within the lumen of the gallbladder suggesting cholelithiasis. IMPRESSION: 1. Very limited exam due to the factors noted above 2. Left kidney could not be visualized 3. No definite focal lesions or hydronephrosis involving the right kidney 4. Incidental note made of questionable cholelithiasis.
--- NOTE | 2018-07-19 11:03 | Internal Medicine Prog Note ---
Internal Medicine Subjective - Subjective Service Date: 07/19/18 Patient seen and examined:: with staff Patient is:: awake, verbal Patient Complaints of:: cough, other (Respiratory failure and Pneumonia.) Per staff patient has:: no adverse event, no episodes of fall Internal Medicine Objective - Results Result Diagrams: 07/19/18 06:00 07/19/18 06:00 Recent Labs: Laboratory Last Values WBC 16.4 Th/cmm (4.8-10.8) H 07/19/18 06:00 RBC 4.39 Mil/cmm (3.80-5.80) 07/19/18 06:00 Hgb 13.2 gm/dL (12-16) 07/19/18 06:00 Hct 41.5 % (41.0-60) 07/19/18 06:00 MCV 94.6 fl (80-99) 07/19/18 06:00 MCH 30.1 pg (27.0-31.0) 07/19/18 06:00 MCHC Differential 31.9 pg (28.0-36.0) 07/19/18 06:00 RDW 16.1 % (11.5-20.0) 07/19/18 06:00 Plt Count 200 Th/cmm (150-400) 07/19/18 06:00 MPV 11.2 fl 07/19/18 06:00 Add Manual Diff CHEMIST ASSISTANT 07/19/18 06:00 Neutrophils % 93.9 % (40.0-80.0) H 07/19/18 06:00 Band Neutrophils % 4 % (0-10) 07/17/18 09:00 Lymphocytes % 4.8 % (20.0-50.0) L 07/19/18 06:00 Monocytes % 1.2 % (2.0-10.0) L 07/19/18 06:00 Eosinophils % 0.0 % (0.0-5.0) 07/19/18 06:00 Basophils % 0.0 % (0.0-2.0) 07/19/18 06:00 Neutrophils (Manual) Not Reportable 07/19/18 06:00 Lymphocytes 7 % (20-50) L 07/17/18 09:00 Monocytes 5 % (2-10) 07/17/18 09:00 Eosinophils 0 % (0-5) 07/17/18 09:00 Basophils 0 % (0-3) 07/17/18 09:00 Eos Smear Source URINE 07/18/18 18:00 Eos Smear Total Cells NONE SEEN (NONE SEEN) 07/18/18 18:00 Specimen Source Arterial 07/18/18 09:55 Sample Site RB 07/18/18 09:55 pH 7.291 (7.35-7.45) L 07/18/18 09:55 pCO2 51.9 mmHg (35.0-45.0) H 07/18/18 09:55 pO2 81.1 mmHg (80.0-100.0) 07/18/18 09:55 HCO3 24.5 mEq/L (20.0-26.0) 07/18/18 09:55 Base Excess -2.8 mEq/L (-3.0-3.0) 07/18/18 09:55 O2 Saturation 94.6 % (92.0-100.0) 07/18/18 09:55 Adebayo Test NA 07/18/18 09:55 Vent Rate NA 07/18/18 09:55 Inspired O2 21 07/18/18 09:55 Tidal Volume NA 07/18/18 09:55 PEEP NA 07/18/18 09:55 Pressure (ins/psv/peep) NA 07/18/18 09:55 Critical Value SH 07/18/18 09:55 Sodium 157 mEq/L (136-145) H 07/19/18 06:00 Potassium 3.0 mEq/L (3.5-5.1) L 07/19/18 06:00 Chloride 122 mEq/L (98-107) H 07/19/18 06:00 Carbon Dioxide 24.2 mEq/L (21.0-31.0) 07/19/18 06:00 Anion Gap 13.8 (7.0-16.0) 07/19/18 06:00 BUN 94 mg/dL (7-25) H* 07/19/18 06:00 Creatinine 2.4 mg/dL (0.7-1.3) H 07/19/18 06:00 Est GFR ( Amer) TNP 07/19/18 06:00 Est GFR (Non-Af Amer) TNP 07/19/18 06:00 BUN/Creatinine Ratio 39.2 07/19/18 06:00 Glucose 255 mg/dL (70-105) H 07/19/18 06:00 Whole Bld Lactic Acid 1.00 mmol/L (0.60-1.99) 07/19/18 06:00 Uric Acid 9.8 mg/dL (4.4-7.6) H 07/19/18 06:00 Calcium 8.7 mg/dL (8.6-10.3) 07/19/18 06:00 Phosphorus 2.6 mg/dL (2.5-5.0) 07/19/18 06:00 Magnesium 2.9 mg/dL (1.9-2.7) H 07/19/18 06:00 Total Bilirubin 0.7 mg/dL (0.3-1.0) 07/17/18 09:00 AST 20 U/L (13-39) 07/17/18 09:00 ALT 14 U/L (7-52) 07/17/18 09:00 Alkaline Phosphatase 83 U/L (34-104) 07/17/18 09:00 Creatine Kinase 205 U/L (30-223) 07/17/18 09:00 Troponin I 0.19 ng/mL (0.01-0.05) H* D 07/17/18 09:00 B-Natriuretic Peptide 77.6 pg/mL (5.0-100.0) 07/17/18 09:00 Total Protein 8.1 gm/dL (6.0-8.3) 07/17/18 09:00 Albumin 3.8 gm/dL (4.2-5.5) L 07/17/18 09:00 Globulin 4.3 gm/dL 07/17/18 09:00 Albumin/Globulin Ratio 0.9 (1.0-1.8) L 07/17/18 09:00 TSH 0.17 uIU/ml (0.34-5.60) L 07/19/18 06:00 Urine Source CLEAN C 07/17/18 11:50 Urine Color YELLOW 07/17/18 11:50 Urine Clarity SLIGHTLY HAZY (CLEAR) 07/17/18 11:50 Urine pH 6.0 (4.6 - 8.0) 07/17/18 11:50 Ur Specific [place] 1.025 (1.005-1.030) 07/17/18 11:50 Urine Protein NEGATIVE mg/dL (NEGATIVE) 07/17/18 11:50 Urine Glucose (UA) NEGATIVE mg/dL (NEGATIVE) 07/17/18 11:50 Urine Ketones NEGATIVE mg/dL (NEGATIVE) 07/17/18 11:50 Urine Blood MODERATE (NEGATIVE) H 07/17/18 11:50 Urine Nitrate NEGATIVE (NEGATIVE) 07/17/18 11:50 Urine Bilirubin NEGATIVE (NEGATIVE) 07/17/18 11:50 Urine Urobilinogen 0.2 E.U./dL (0.2 - 1.0) 07/17/18 11:50 Ur Leukocyte Esterase NEGATIVE (NEGATIVE) 07/17/18 11:50 Urine RBC 5-10 /hpf (0-5) H 07/17/18 11:50 Urine WBC 2-5 /hpf (0-5) 07/17/18 11:50 Ur Epithelial Cells OCCASIONAL /lpf (FEW) 07/17/18 11:50 Urine Bacteria FEW /hpf (NONE SEEN) 07/17/18 11:50 Urine Mucus FEW /lpf (FEW) 07/17/18 11:50 Ur Random Sodium 20 mmol/L 07/18/18 18:00 Urine Creatinine 110.0 mg/dl (39.0-259.0) 07/18/18 18:00 - Physical Exam Vitals and I&O: Vital Signs Temp 97.9 F 07/19/18 08:00 Pulse 58 07/19/18 08:11 Resp 25 07/19/18 09:15 BP 101/68 07/19/18 08:11 Pulse Ox 96 07/19/18 09:15 Intake & Output 07/18/18 07/19/18 07/19/18 18:59 06:59 18:59 Intake Total 1050 50 1000 Balance 1050 50 1000 Weight (lbs) 66.224 kg Intake: Intake, IV Amount 1050 50 1000 Dextrose 5% 1,000 ml @ 75 1000 mls/hr IV .[id number] MOIZ Rx#:[id number] Piperacillin Sodium/ 50 50 Tazobact 2.25 gm In Sodium Chloride 0.9% 50 ml @ 100 mls/hr IV Q8HR [facility]IZ Rx#:[id number] Sodium Chloride 0.45% 1, 1000 000 ml @ 150 mls/hr IV . Q6H40M [facility]IZ Rx#:[id number] Other: # Voids 3 Weight Source Bedscale Active Medications: Current Medications Acetaminophen (Tylenol Extra Strength) 1,000 mg PO Q4H PRN PRN Reason: Pain (Moderate) Stop: 09/15/18 15:15 Acetaminophen (Tylenol) 650 mg PO Q4HR PRN PRN Reason: Mild Pain or Fever >101 Stop: 09/15/18 15:18 Acetylcysteine (Mucomyst 20%) 3 ml HHN Q4HRT [facility] Stop: 09/16/18 10:59 Last Admin: 07/19/18 06:51 Dose: 3 ml Albuterol Sulfate (Albuterol 2.5mg/3ml Neb Ud) 2.5 mg HHN Q4HRT [facility] Stop: 09/16/18 18:59 Last Admin: 07/19/18 06:51 Dose: 2.5 mg Amlodipine Besylate (Norvasc) 5 mg PO DAILY [facility] Stop: 09/16/18 08:59 Last Admin: 07/19/18 08:11 Dose: Not Given Piperacillin Sod/Tazobactam (Sod 2.25 gm/ Sodium Chloride) 50 mls @ 100 mls/hr IV Q8HR [facility] Stop: 09/15/18 20:59 Last Admin: 07/19/18 05:34 Dose: 100 mls/hr Dextrose (D5w) 1,000 mls @ 75 mls/hr IV .[id number] [facility] Stop: 09/16/18 17:44 Last Admin: 07/19/18 08:14 Dose: 75 mls/hr Methylprednisolone Sodium Succinate (Solu-Medrol) 40 mg IVP Q6HR [facility] Stop: 09/16/18 11:59 Last Admin: 07/19/18 05:38 Dose: 40 mg Miscellaneous (Vancomycin Iv Per Pharmacy) 1 ea MC PRN PRN PRN Reason: PROTOCOL Stop: 09/16/18 16:40 Physical Exam: 83 y/o male patient was admitted due to Sepsis, Respiratory failure, Renal failure and Pneumonia. Patient has history of Dysphagia, Weakness and Dementia. Patient is currently on IV Antibiotics, Nebulizer treatment and BiPAP. General: weak HEENT: NC/AT Neck: Supple Lungs: wheezing, ronchi Cardiovascular: RRR, Normal S1 Abdomen: soft, non-tender Extremities: clear Neurological: no change - Procedures Procedures: Procedures Procedure Code Date GROUP PSYCHOTHERAPY 75628 06/14/15 GROUP PSYCHOTHERAPY GZHZZZZ 06/14/15 INSERT EMERGENCY AIRWAY 11173 09/17/16 INSERTION OF ENDOTRACHEAL AIRWAY INTO TRACHEA, VIA OPENING [id number] 09/17/16 RESPIRATORY VENTILATION, 24-96 CONSECUTIVE HOURS [id number] 09/17/16 VENT MGMT INPAT INIT DAY 09/17/16 VENT MGMT INPAT SUBQ [id number] 09/17/16 Internal Medicine Assmt/Plan - Assessment Assessment: Dysphagia. Weakness. Dementia. Respiratory failure. Renal failure. Sepsis. Pneumonia. - Plan Plan: Continuation of care. Monitor Labs,Monitor Hemoglobin levels, Sputum culture and Chest x-ray. Continue present meds as directed. Monitor Diet/Nutritional support. Respiratory treatments and Pulmonary support. Supplemental Oxygen. Aspiration precaution. Deep Suctioning prn. Psych management per Psych Pain Management. Physical therapy. Occupational therapy. Safety precaution. Supportive care. Fall precaution, frequent nursing rounds, and as needed restraints to prevent fall. Continue collaborating with consulting specialists, case management and nursing team. Will Monitor patient and continue current treatment plan as ordered. Nutritional Asmnt/Malnutr-PDOC - Dietary Evaluation Malnutrition Findings (Please click <Entered> for more info): see orders.
--- NOTE | 2018-07-19 11:11 | Infectious Disease Prog Note ---
Infectious Disease Subjective - Review of Systems Service Date: 07/19/18 Subjective: There is no new change, no fever, Infectious Disease Objective - Results Result Diagrams: 07/19/18 06:00 07/19/18 06:00 Recent Labs: Laboratory Last Values WBC 16.4 Th/cmm (4.8-10.8) H 07/19/18 06:00 RBC 4.39 Mil/cmm (3.80-5.80) 07/19/18 06:00 Hgb 13.2 gm/dL (12-16) 07/19/18 06:00 Hct 41.5 % (41.0-60) 07/19/18 06:00 MCV 94.6 fl (80-99) 07/19/18 06:00 MCH 30.1 pg (27.0-31.0) 07/19/18 06:00 MCHC Differential 31.9 pg (28.0-36.0) 07/19/18 06:00 RDW 16.1 % (11.5-20.0) 07/19/18 06:00 Plt Count 200 Th/cmm (150-400) 07/19/18 06:00 MPV 11.2 fl 07/19/18 06:00 Add Manual Diff FINANCIAL SALES ADVISOR 07/19/18 06:00 Neutrophils % 93.9 % (40.0-80.0) H 07/19/18 06:00 Band Neutrophils % 4 % (0-10) 07/17/18 09:00 Lymphocytes % 4.8 % (20.0-50.0) L 07/19/18 06:00 Monocytes % 1.2 % (2.0-10.0) L 07/19/18 06:00 Eosinophils % 0.0 % (0.0-5.0) 07/19/18 06:00 Basophils % 0.0 % (0.0-2.0) 07/19/18 06:00 Neutrophils (Manual) Not Reportable 07/19/18 06:00 Lymphocytes 7 % (20-50) L 07/17/18 09:00 Monocytes 5 % (2-10) 07/17/18 09:00 Eosinophils 0 % (0-5) 07/17/18 09:00 Basophils 0 % (0-3) 07/17/18 09:00 Eos Smear Source URINE 07/18/18 18:00 Eos Smear Total Cells NONE SEEN (NONE SEEN) 07/18/18 18:00 Specimen Source Arterial 07/18/18 09:55 Sample Site RB 07/18/18 09:55 pH 7.291 (7.35-7.45) L 07/18/18 09:55 pCO2 51.9 mmHg (35.0-45.0) H 07/18/18 09:55 pO2 81.1 mmHg (80.0-100.0) 07/18/18 09:55 HCO3 24.5 mEq/L (20.0-26.0) 07/18/18 09:55 Base Excess -2.8 mEq/L (-3.0-3.0) 07/18/18 09:55 O2 Saturation 94.6 % (92.0-100.0) 07/18/18 09:55 Adebayo Test NA 07/18/18 09:55 Vent Rate NA 07/18/18 09:55 Inspired O2 21 07/18/18 09:55 Tidal Volume NA 07/18/18 09:55 PEEP NA 07/18/18 09:55 Pressure (ins/psv/peep) NA 07/18/18 09:55 Critical Value SH 07/18/18 09:55 Sodium 157 mEq/L (136-145) H 07/19/18 06:00 Potassium 3.0 mEq/L (3.5-5.1) L 07/19/18 06:00 Chloride 122 mEq/L (98-107) H 07/19/18 06:00 Carbon Dioxide 24.2 mEq/L (21.0-31.0) 07/19/18 06:00 Anion Gap 13.8 (7.0-16.0) 07/19/18 06:00 BUN 94 mg/dL (7-25) H* 07/19/18 06:00 Creatinine 2.4 mg/dL (0.7-1.3) H 07/19/18 06:00 Est GFR ( Amer) TNP 07/19/18 06:00 Est GFR (Non-Af Amer) TNP 07/19/18 06:00 BUN/Creatinine Ratio 39.2 07/19/18 06:00 Glucose 255 mg/dL (70-105) H 07/19/18 06:00 Whole Bld Lactic Acid 1.00 mmol/L (0.60-1.99) 07/19/18 06:00 Uric Acid 9.8 mg/dL (4.4-7.6) H 07/19/18 06:00 Calcium 8.7 mg/dL (8.6-10.3) 07/19/18 06:00 Phosphorus 2.6 mg/dL (2.5-5.0) 07/19/18 06:00 Magnesium 2.9 mg/dL (1.9-2.7) H 07/19/18 06:00 Total Bilirubin 0.7 mg/dL (0.3-1.0) 07/17/18 09:00 AST 20 U/L (13-39) 07/17/18 09:00 ALT 14 U/L (7-52) 07/17/18 09:00 Alkaline Phosphatase 83 U/L (34-104) 07/17/18 09:00 Creatine Kinase 205 U/L (30-223) 07/17/18 09:00 Troponin I 0.19 ng/mL (0.01-0.05) H* D 07/17/18 09:00 B-Natriuretic Peptide 77.6 pg/mL (5.0-100.0) 07/17/18 09:00 Total Protein 8.1 gm/dL (6.0-8.3) 07/17/18 09:00 Albumin 3.8 gm/dL (4.2-5.5) L 07/17/18 09:00 Globulin 4.3 gm/dL 07/17/18 09:00 Albumin/Globulin Ratio 0.9 (1.0-1.8) L 07/17/18 09:00 TSH 0.17 uIU/ml (0.34-5.60) L 07/19/18 06:00 Urine Source CLEAN C 07/17/18 11:50 Urine Color YELLOW 07/17/18 11:50 Urine Clarity SLIGHTLY HAZY (CLEAR) 07/17/18 11:50 Urine pH 6.0 (4.6 - 8.0) 07/17/18 11:50 Ur Specific [place] 1.025 (1.005-1.030) 07/17/18 11:50 Urine Protein NEGATIVE mg/dL (NEGATIVE) 07/17/18 11:50 Urine Glucose (UA) NEGATIVE mg/dL (NEGATIVE) 07/17/18 11:50 Urine Ketones NEGATIVE mg/dL (NEGATIVE) 07/17/18 11:50 Urine Blood MODERATE (NEGATIVE) H 07/17/18 11:50 Urine Nitrate NEGATIVE (NEGATIVE) 07/17/18 11:50 Urine Bilirubin NEGATIVE (NEGATIVE) 07/17/18 11:50 Urine Urobilinogen 0.2 E.U./dL (0.2 - 1.0) 07/17/18 11:50 Ur Leukocyte Esterase NEGATIVE (NEGATIVE) 07/17/18 11:50 Urine RBC 5-10 /hpf (0-5) H 07/17/18 11:50 Urine WBC 2-5 /hpf (0-5) 07/17/18 11:50 Ur Epithelial Cells OCCASIONAL /lpf (FEW) 07/17/18 11:50 Urine Bacteria FEW /hpf (NONE SEEN) 07/17/18 11:50 Urine Mucus FEW /lpf (FEW) 07/17/18 11:50 Ur Random Sodium 20 mmol/L 07/18/18 18:00 Urine Creatinine 110.0 mg/dl (39.0-259.0) 07/18/18 18:00 - Physical Exam Vitals and I&O: Vital Signs Temp 97.9 F 07/19/18 08:00 Pulse 58 07/19/18 08:11 Resp 19 07/19/18 11:01 BP 101/68 07/19/18 08:11 Pulse Ox 95 07/19/18 11:01 Intake & Output 07/18/18 07/19/18 07/19/18 18:59 06:59 18:59 Intake Total 1050 50 1000 Balance 1050 50 1000 Weight (lbs) 66.224 kg Intake: Intake, IV Amount 1050 50 1000 Dextrose 5% 1,000 ml @ 75 1000 mls/hr IV .[id number] [facility] Rx#:[id number] Piperacillin Sodium/ 50 50 Tazobact 2.25 gm In Sodium Chloride 0.9% 50 ml @ 100 mls/hr IV Q8HR [facility] Rx#:[id number] Sodium Chloride 0.45% 1, 1000 000 ml @ 150 mls/hr IV . Q6H40M [facility]IZ Rx#:[id number] Other: # Voids 3 Weight Source Bedscale Active Medications: Current Medications Acetaminophen (Tylenol Extra Strength) 1,000 mg PO Q4H PRN PRN Reason: Pain (Moderate) Stop: 09/15/18 15:15 Acetaminophen (Tylenol) 650 mg PO Q4HR PRN PRN Reason: Mild Pain or Fever >101 Stop: 09/15/18 15:18 Acetylcysteine (Mucomyst 20%) 3 ml HHN Q4HRT [facility] Stop: 09/16/18 10:59 Last Admin: 07/19/18 11:01 Dose: 3 ml Albuterol Sulfate (Albuterol 2.5mg/3ml Neb Ud) 2.5 mg HHN Q4HRT [facility] Stop: 09/16/18 18:59 Last Admin: 07/19/18 11:00 Dose: 2.5 mg Amlodipine Besylate (Norvasc) 5 mg PO DAILY [facility] Stop: 09/16/18 08:59 Last Admin: 07/19/18 08:11 Dose: Not Given Piperacillin Sod/Tazobactam (Sod 2.25 gm/ Sodium Chloride) 50 mls @ 100 mls/hr IV Q8HR [facility] Stop: 09/15/18 20:59 Last Admin: 07/19/18 05:34 Dose: 100 mls/hr Dextrose (D5w) 1,000 mls @ 75 mls/hr IV .[id number] [facility] Stop: 09/16/18 17:44 Last Admin: 07/19/18 08:14 Dose: 75 mls/hr Methylprednisolone Sodium Succinate (Solu-Medrol) 40 mg IVP Q6HR [facility] Stop: 09/16/18 11:59 Last Admin: 07/19/18 11:08 Dose: 40 mg Miscellaneous (Vancomycin Iv Per Pharmacy) 1 ea MC PRN PRN PRN Reason: PROTOCOL Stop: 09/16/18 16:40 General: no acute distress, well developed, well nourished HEENT: atraumatic, normocephalic, PERRLA, EOMI, moist mucous membrane Neck: supple, no thyromegaly, no lymphadenopathy Cardiovascular: S1S2, regular Lungs: clear to percussion, rhonchi Abdomen: soft, no tender, no distended Extremities: no cyanosis, no clubbing, no edema Neurological: other (aphasic, unresponsive.) Skin: intact - Procedures Procedures: Procedures Procedure Code Date GROUP PSYCHOTHERAPY 76886 06/14/15 GROUP PSYCHOTHERAPY GZHZZZZ 06/14/15 INSERT EMERGENCY AIRWAY 67518 09/17/16 INSERTION OF ENDOTRACHEAL AIRWAY INTO TRACHEA, VIA OPENING [id number] 09/17/16 RESPIRATORY VENTILATION, 24-96 CONSECUTIVE HOURS [id number] 09/17/16 VENT MGMT INPAT INIT DAY 76538 09/17/16 VENT MGMT INPAT SUBQ DAY [id number] 09/17/16 Infectious Disease Assmt/Plan - Assessment Assessment: 1. Sepsis. 2. Pneumonia. 3. Dysphagia. 4. Weakness. 5. Dementia. 6. Respiratory failure. 7. SUSIE. 8. Dehydration improving. - Plan Plan: Continue Vanco IV and zosyn.
--- NOTE | 2018-07-19 12:21 | Consultation ---
DATE OF CONSULTATION: 07/18/2018 INFECTIOUS DISEASE CONSULTATION REFERRING PHYSICIAN: Dr. Layne. REASON FOR CONSULTATION: Urinary tract infection, sepsis. HISTORY OF PRESENT ILLNESS: The patient is an 83-year-old male with a past medical history of psychosis, history of hypertension, and seizure disorder, brought in from [facility] for fever and chills. Chest x-ray showed some abnormalities and suspected pneumonia. The patient failed oral antibiotic therapy. The patient also has some cough and chest pain. He has no improvement. The patient was transferred to the [facility] ER for further evaluation and management. On initial evaluation, the patient's temperature was 98.2 degree Fahrenheit and WBC count was 20,100 with neutrophil 84%. Lactic acid was high 2.72. The patient was started on Zosyn and ID consult was called for the antibiotic management. Besides this, the patient's creatinine was also elevated. Three months back, his creatinine was 0.9. His sodium was also 163. PAST MEDICAL HISTORY: Includes hypertension, psychosis, chronic obstructive pulmonary disease, peptic ulcer disease, and arthritis. ALLERGIES: NKDA. MEDICATIONS: Per medication reconciliation sheet. Antibiotic donald, the patient is on Zosyn. SOCIAL HISTORY: The patient lives at nursing facility. No history of smoking, alcohol or drug use. REVIEW OF SYSTEMS: Unable to obtain. PHYSICAL EXAMINATION: VITAL SIGNS: Shows temperature is 97.6 degrees Fahrenheit, pulse 72, respirations 18, blood pressure 123/52. GENERAL: The patient is comfortable lying in the bed, not in acute distress, on the BiPAP. HEENT: Head is normocephalic, atraumatic. Oral cavity moist, pink tongue. Eyes: Pallor is present, no icterus. PERRLA, EOMI. Face is symmetrical. NECK: Supple. No JVD, no carotid bruit. Trachea in midline. No use of accessory neck muscle. CHEST: Bilateral breath sounds, occasional rhonchi. HEART: S1, S2 within normal limit. Regular rhythm. No murmur or gallop. ABDOMEN: Soft, nontender, nondistended. Bowel sounds present. EXTREMITIES: No cyanosis, no clubbing, no edema. NEUROLOGIC: Arousable, but unable to communicate. LABORATORY DATA: Current lab shows WBC count 18,200, hemoglobin 14, hematocrit 44.7, platelets are 280,000, neutrophil 85.8%. Sodium 159, potassium 3.7, chloride 123, bicarbonate is 24.2, BUN is 95, creatinine 3.1, glucose is 111, and lactic acid 2.65. Urinalysis shows moderate blood, rbc 5-10, and wbc's 2-5. Urine culture negative. Blood cultures 2 sets negative. IMPRESSION: 1. Leukocytosis with a history of fever, lactic acidosis, suspect sepsis may have aspiration pneumonia. 2. Dementia. 3. Dysphagia. 4. Hypertension. 5. Psychosis. 6. Acute kidney injury, acute tubular necrosis. 7. Chronic obstructive pulmonary disease. 8. Gastroesophageal reflux disease. RECOMMENDATIONS AND PLAN: Continue IV fluid support. Continue Zosyn. Thank you, Dr. Layne for involving me in taking care of this patient. JOB# [id number]
[2018-07-19] MEDS ORDERED: Dextrose 50% 50 mL Abboject IVP PRN (14:16)
[2018-07-19] MEDS ORDERED: GLUCAGON HCl 1 MG KIT IM PRN (14:16)
--- NOTE | 2018-07-19 14:16 | General Progress Note ---
Subjective - Review of Systems Service Date: 07/19/18 Subjective: more awake, nonverbal Objective - Results Result Diagrams: 07/19/18 06:00 07/19/18 06:00 Recent Labs: Laboratory Last Values WBC 16.4 Th/cmm (4.8-10.8) H 07/19/18 06:00 RBC 4.39 Mil/cmm (3.80-5.80) 07/19/18 06:00 Hgb 13.2 gm/dL (12-16) 07/19/18 06:00 Hct 41.5 % (41.0-60) 07/19/18 06:00 MCV 94.6 fl (80-99) 07/19/18 06:00 MCH 30.1 pg (27.0-31.0) 07/19/18 06:00 MCHC Differential 31.9 pg (28.0-36.0) 07/19/18 06:00 RDW 16.1 % (11.5-20.0) 07/19/18 06:00 Plt Count 200 Th/cmm (150-400) 07/19/18 06:00 MPV 11.2 fl 07/19/18 06:00 Add Manual Diff [employer] 07/19/18 06:00 Neutrophils % 93.9 % (40.0-80.0) H 07/19/18 06:00 Band Neutrophils % 4 % (0-10) 07/17/18 09:00 Lymphocytes % 4.8 % (20.0-50.0) L 07/19/18 06:00 Monocytes % 1.2 % (2.0-10.0) L 07/19/18 06:00 Eosinophils % 0.0 % (0.0-5.0) 07/19/18 06:00 Basophils % 0.0 % (0.0-2.0) 07/19/18 06:00 Neutrophils (Manual) Not Reportable 07/19/18 06:00 Lymphocytes 7 % (20-50) L 07/17/18 09:00 Monocytes 5 % (2-10) 07/17/18 09:00 Eosinophils 0 % (0-5) 07/17/18 09:00 Basophils 0 % (0-3) 07/17/18 09:00 Eos Smear Source URINE 07/18/18 18:00 Eos Smear Total Cells NONE SEEN (NONE SEEN) 07/18/18 18:00 Specimen Source Arterial 07/18/18 09:55 Sample Site RB 07/18/18 09:55 pH 7.291 (7.35-7.45) L 07/18/18 09:55 pCO2 51.9 mmHg (35.0-45.0) H 07/18/18 09:55 pO2 81.1 mmHg (80.0-100.0) 07/18/18 09:55 HCO3 24.5 mEq/L (20.0-26.0) 07/18/18 09:55 Base Excess -2.8 mEq/L (-3.0-3.0) 07/18/18 09:55 O2 Saturation 94.6 % (92.0-100.0) 07/18/18 09:55 Adebayo Test NA 07/18/18 09:55 Vent Rate NA 07/18/18 09:55 Inspired O2 21 07/18/18 09:55 Tidal Volume NA 07/18/18 09:55 PEEP NA 07/18/18 09:55 Pressure (ins/psv/peep) NA 07/18/18 09:55 Critical Value SH 07/18/18 09:55 Sodium 157 mEq/L (136-145) H 07/19/18 06:00 Potassium 3.0 mEq/L (3.5-5.1) L 07/19/18 06:00 Chloride 122 mEq/L (98-107) H 07/19/18 06:00 Carbon Dioxide 24.2 mEq/L (21.0-31.0) 07/19/18 06:00 Anion Gap 13.8 (7.0-16.0) 07/19/18 06:00 BUN 94 mg/dL (7-25) H* 07/19/18 06:00 Creatinine 2.4 mg/dL (0.7-1.3) H 07/19/18 06:00 Est GFR ( Amer) TNP 07/19/18 06:00 Est GFR (Non-Af Amer) TNP 07/19/18 06:00 BUN/Creatinine Ratio 39.2 07/19/18 06:00 Glucose 255 mg/dL (70-105) H 07/19/18 06:00 Whole Bld Lactic Acid 1.00 mmol/L (0.60-1.99) 07/19/18 06:00 Uric Acid 9.8 mg/dL (4.4-7.6) H 07/19/18 06:00 Calcium 8.7 mg/dL (8.6-10.3) 07/19/18 06:00 Phosphorus 2.6 mg/dL (2.5-5.0) 07/19/18 06:00 Magnesium 2.9 mg/dL (1.9-2.7) H 07/19/18 06:00 Total Bilirubin 0.7 mg/dL (0.3-1.0) 07/17/18 09:00 AST 20 U/L (13-39) 07/17/18 09:00 ALT 14 U/L (7-52) 07/17/18 09:00 Alkaline Phosphatase 83 U/L (34-104) 07/17/18 09:00 Creatine Kinase 205 U/L (30-223) 07/17/18 09:00 Troponin I 0.19 ng/mL (0.01-0.05) H* D 07/17/18 09:00 B-Natriuretic Peptide 77.6 pg/mL (5.0-100.0) 07/17/18 09:00 Total Protein 8.1 gm/dL (6.0-8.3) 07/17/18 09:00 Albumin 3.8 gm/dL (4.2-5.5) L 07/17/18 09:00 Globulin 4.3 gm/dL 07/17/18 09:00 Albumin/Globulin Ratio 0.9 (1.0-1.8) L 07/17/18 09:00 TSH 0.17 uIU/ml (0.34-5.60) L 07/19/18 06:00 Urine Source CLEAN C 07/17/18 11:50 Urine Color YELLOW 07/17/18 11:50 Urine Clarity SLIGHTLY HAZY (CLEAR) 07/17/18 11:50 Urine pH 6.0 (4.6 - 8.0) 07/17/18 11:50 Ur Specific [place] 1.025 (1.005-1.030) 07/17/18 11:50 Urine Protein NEGATIVE mg/dL (NEGATIVE) 07/17/18 11:50 Urine Glucose (UA) NEGATIVE mg/dL (NEGATIVE) 07/17/18 11:50 Urine Ketones NEGATIVE mg/dL (NEGATIVE) 07/17/18 11:50 Urine Blood MODERATE (NEGATIVE) H 07/17/18 11:50 Urine Nitrate NEGATIVE (NEGATIVE) 07/17/18 11:50 Urine Bilirubin NEGATIVE (NEGATIVE) 07/17/18 11:50 Urine Urobilinogen 0.2 E.U./dL (0.2 - 1.0) 07/17/18 11:50 Ur Leukocyte Esterase NEGATIVE (NEGATIVE) 07/17/18 11:50 Urine RBC 5-10 /hpf (0-5) H 07/17/18 11:50 Urine WBC 2-5 /hpf (0-5) 07/17/18 11:50 Ur Epithelial Cells OCCASIONAL /lpf (FEW) 07/17/18 11:50 Urine Bacteria FEW /hpf (NONE SEEN) 07/17/18 11:50 Urine Mucus FEW /lpf (FEW) 07/17/18 11:50 Ur Random Sodium 20 mmol/L 07/18/18 18:00 Urine Creatinine 110.0 mg/dl (39.0-259.0) 07/18/18 18:00 - Physical Exam Vitals and I&O: Vital Signs Temp 98.0 F 07/19/18 12:00 Pulse 72 07/19/18 14:05 Resp 22 07/19/18 14:05 BP 109/63 07/19/18 12:00 Pulse Ox 97 07/19/18 14:05 Intake & Output 07/18/18 07/19/18 07/19/18 18:59 06:59 18:59 Intake Total 9951 861 6145 Balance 9508 436 6451 Weight (lbs) 66.224 kg Intake: Intake, IV Amount 3875 732 6158 Dextrose 5% 1,000 ml @ 75 1000 mls/hr IV .[id number] [facility] Rx#:[id number] Piperacillin Sodium/ 50 100 Tazobact 2.25 gm In Sodium Chloride 0.9% 50 ml @ 100 mls/hr IV Q8HR [facility] Rx#:[id number] Sodium Chloride 0.45% 1, 1000 000 ml @ 150 mls/hr IV . Q6H40M [facility] Rx#:[id number] Other: # Voids 3 Weight Source Bedscale Active Medications: Current Medications Acetaminophen (Tylenol Extra Strength) 1,000 mg PO Q4H PRN PRN Reason: Pain (Moderate) Stop: 09/15/18 15:15 Acetaminophen (Tylenol) 650 mg PO Q4HR PRN PRN Reason: Mild Pain or Fever >101 Stop: 09/15/18 15:18 Acetylcysteine (Mucomyst 20%) 3 ml HHN Q4HRT [facility] Stop: 09/16/18 10:59 Last Admin: 07/19/18 14:05 Dose: 3 ml Albuterol Sulfate (Albuterol 2.5mg/3ml Neb Ud) 2.5 mg HHN Q4HRT [facility] Stop: 09/16/18 18:59 Last Admin: 07/19/18 14:04 Dose: 2.5 mg Amlodipine Besylate (Norvasc) 5 mg PO DAILY [facility] Stop: 09/16/18 08:59 Last Admin: 07/19/18 08:11 Dose: Not Given Piperacillin Sod/Tazobactam (Sod 2.25 gm/ Sodium Chloride) 50 mls @ 100 mls/hr IV Q8HR [facility] Stop: 09/15/18 20:59 Last Admin: 07/19/18 11:59 Dose: 100 mls/hr Dextrose (D5w) 1,000 mls @ 75 mls/hr IV .[id number] [facility] Stop: 09/16/18 17:44 Last Admin: 07/19/18 08:14 Dose: 75 mls/hr Methylprednisolone Sodium Succinate (Solu-Medrol) 40 mg IVP Q6HR [facility] Stop: 09/16/18 11:59 Last Admin: 07/19/18 11:08 Dose: 40 mg Miscellaneous (Vancomycin Iv Per Pharmacy) 1 ea MC PRN PRN PRN Reason: PROTOCOL Stop: 09/16/18 16:40 General: Mild distress HEENT: Atraumatic, Mucous membr. moist/pink Neck: Supple, +2 carotid pulse wo bruit Cardiovascular: Regular rate, Normal S1, Normal S2 Lungs: Other (scattered rhonchi) Abdomen: Bowel sounds, Soft Extremities: no Edema Neurological: Sensation intact Skin: no Rash Psych/Mental Status: Mood NL - Procedures Procedures: Procedures Procedure Code Date GROUP PSYCHOTHERAPY 17985 06/14/15 GROUP PSYCHOTHERAPY [id number] 06/14/15 INSERT EMERGENCY AIRWAY 25602 09/17/16 INSERTION OF ENDOTRACHEAL AIRWAY INTO [place]HE[place], VIA OPENING [id number] 09/17/16 RESPIRATORY VENTILATION, 24-96 CONSECUTIVE HOURS [id number] 09/17/16 VENT MGMT INPAT INIT DAY 09/17/16 VENT MGMT INPAT SUBQ DAY 09/17/16 Assessment/Plan - Assessment Assessment: SUSIE on CKD Pneumonitis Resp Failure 2/2 Exac COPD Hypernatremia Dehydration Ess Htn w/ CKD CAD New Onset T2DM - Plan Plan: Lab - Result Diagrams 07/19/18 06:00 07/19/18 06:00 Current Medications Acetaminophen (Tylenol Extra Strength) 1,000 mg PO Q4H PRN PRN Reason: Pain (Moderate) Stop: 09/15/18 15:15 Acetaminophen (Tylenol) 650 mg PO Q4HR PRN PRN Reason: Mild Pain or Fever >101 Stop: 09/15/18 15:18 Acetylcysteine (Mucomyst 20%) 3 ml HHN Q4HRT [facility] Stop: 09/16/18 10:59 Last Admin: 07/19/18 14:05 Dose: 3 ml Albuterol Sulfate (Albuterol 2.5mg/3ml Neb Ud) 2.5 mg HHN Q4HRT [facility] Stop: 09/16/18 18:59 Last Admin: 07/19/18 14:04 Dose: 2.5 mg Amlodipine Besylate (Norvasc) 5 mg PO DAILY [facility] Stop: 09/16/18 08:59 Last Admin: 07/19/18 08:11 Dose: Not Given Piperacillin Sod/Tazobactam (Sod 2.25 gm/ Sodium Chloride) 50 mls @ 100 mls/hr IV Q8HR [facility] Stop: 09/15/18 20:59 Last Admin: 07/19/18 11:59 Dose: 100 mls/hr Dextrose (D5w) 1,000 mls @ 75 mls/hr IV .[id number] [facility] Stop: 09/16/18 17:44 Last Admin: 07/19/18 08:14 Dose: 75 mls/hr Methylprednisolone Sodium Succinate (Solu-Medrol) 40 mg IVP Q6HR [facility] Stop: 09/16/18 11:59 Last Admin: 07/19/18 11:08 Dose: 40 mg Miscellaneous (Vancomycin Iv Per Pharmacy) 1 ea MC PRN PRN PRN Reason: PROTOCOL Stop: 09/16/18 16:40 Lab - Result Diagrams 07/19/18 06:00 07/19/18 06:00 Kidney fnc better w/ BUN/CR 94/2.4 Na down to 157 replace K WBC down to 16 CXR basically the same BS elevated, start SS f/u electrolytes, cbc
[2018-07-19] MEDS ORDERED: Potassium Chloride 40 MEQ, Lidocaine 1% 20mL Vial 25 MG in Sodium Chloride 0.9% 250 ML IV ONE (15:00)
[2018-07-19] MEDS: INSULIN LISPRO SLIDING SCALE 100 UNITS/ML UNIT SUBQ SCH (17:02)
[2018-07-20] MEDS: methylPREDNISolone SS 40 mg Vial IVP SCH ×4 (00:15→17:00)
[2018-07-20] MEDS: INSULIN LISPRO SLIDING SCALE 100 UNITS/ML UNIT SUBQ SCH ×4 (00:15→16:59)
[2018-07-20] MEDS: Albuterol Nebulizer 2.5mg/3mL HHN SCH ×6 (03:56→23:28)
[2018-07-20] MEDS: Piperacillin/Tazobact 2.25 gm in 0.9% NS 50 ML IV SCH ×3 (05:46→20:23)
[2018-07-20 06:47] LABS: EOSINOPHILE ABSOLUTE 0.1 Th/cmm (0.1-0.4); HEMATOCRIT 42.3 % (41.0-60); HEMOGLOBIN 13.8 gm/dL (12-16); LYMPHOCYTE ABSOLUTE 0.7 Th/cmm (1.5-3.0); MEAN CORPUSCULAR HEMOGLOBIN 29.7 pg (27.0-31.0); MEAN CORPUSCULAR HGB CONC 32.6 pg (28.0-36.0); MEAN PLATELET VOLUME 11.7 fl; MONOCYTE ABSOLUTE 0.3 Th/cmm (0.3-1.0); PLATELET COUNT 220 Th/cmm (150-400); RED BLOOD COUNT 4.65 Mil/cmm (3.80-5.80); RED CELL DISTRIBUTION WIDTH 15.7 % (11.5-20.0)
[2018-07-20 07:12] LABS: ANION GAP 14.5 (7.0-16.0); CALCIUM SERUM 9.1 mg/dL (8.6-10.3); CARBON DIOXIDE 24.3 mEq/L (21.0-31.0); CHLORIDE 125 mEq/L (98-107); CREATININE - SERUM 1.8 mg/dL (0.7-1.3); GLUCOSE 211 mg/dL (70-105); MAGNESIUM 3.2 mg/dL (1.9-2.7); POTASSIUM SERUM 3.8 mEq/L (3.5-5.1)
[2018-07-20 07:14] LABS: SODIUM SERUM 160 mEq/L (136-145)
[2018-07-20 07:15] LABS: BUN - UREA NITROGEN 84 mg/dL (7-25)
[2018-07-20 07:16] LABS: WHITE BLOOD COUNT 16.1 Th/cmm (4.8-10.8)
[2018-07-20 07:21] LABS: BAND NEUTROPHILE 0 % (0-10); BASOPHIL 0 % (0-3); EOSINOPHIL 0 % (0-5); LYMPHOCYTE 5 % (20-50); MONOCYTE 3 % (2-10); NEUTROPHILS 92 % (40-80)
[2018-07-20] MEDS: Dextrose 5% 1,000 ML IV SCH (08:46)
--- NOTE | 2018-07-20 10:59 | Infectious Disease Prog Note ---
Infectious Disease Subjective - Review of Systems Service Date: 07/20/18 Subjective: Failed swallow evaluation. There is no new change, no fever. Infectious Disease Objective - Results Result Diagrams: 07/20/18 05:40 07/20/18 05:40 Recent Labs: Laboratory Last Values WBC 16.1 Th/cmm (4.8-10.8) H 07/20/18 05:40 RBC 4.65 Mil/cmm (3.80-5.80) 07/20/18 05:40 Hgb 13.8 gm/dL (12-16) 07/20/18 05:40 Hct 42.3 % (41.0-60) 07/20/18 05:40 MCV 91.0 fl (80-99) 07/20/18 05:40 MCH 29.7 pg (27.0-31.0) 07/20/18 05:40 MCHC Differential 32.6 pg (28.0-36.0) 07/20/18 05:40 RDW 15.7 % (11.5-20.0) 07/20/18 05:40 Plt Count 220 Th/cmm (150-400) 07/20/18 05:40 MPV 11.7 fl 07/20/18 05:40 Add Manual Diff YES 07/20/18 05:40 Neutrophils % 93.9 % (40.0-80.0) H 07/19/18 06:00 Band Neutrophils % 0 % (0-10) 07/20/18 05:40 Lymphocytes % 4.8 % (20.0-50.0) L 07/19/18 06:00 Monocytes % 1.2 % (2.0-10.0) L 07/19/18 06:00 Eosinophils % 0.0 % (0.0-5.0) 07/19/18 06:00 Basophils % 0.0 % (0.0-2.0) 07/19/18 06:00 Neutrophils (Manual) 92 % (40-80) H 07/20/18 05:40 Lymphocytes 5 % (20-50) L 07/20/18 05:40 Monocytes 3 % (2-10) 07/20/18 05:40 Eosinophils 0 % (0-5) 07/20/18 05:40 Basophils 0 % (0-3) 07/20/18 05:40 Eos Smear Source URINE 07/18/18 18:00 Eos Smear Total Cells NONE SEEN (NONE SEEN) 07/18/18 18:00 Specimen Source Arterial 07/18/18 09:55 Sample Site RB 07/18/18 09:55 pH 7.291 (7.35-7.45) L 07/18/18 09:55 pCO2 51.9 mmHg (35.0-45.0) H 07/18/18 09:55 pO2 81.1 mmHg (80.0-100.0) 07/18/18 09:55 HCO3 24.5 mEq/L (20.0-26.0) 07/18/18 09:55 Base Excess -2.8 mEq/L (-3.0-3.0) 07/18/18 09:55 O2 Saturation 94.6 % (92.0-100.0) 07/18/18 09:55 Adebayo Test NA 07/18/18 09:55 Vent Rate NA 07/18/18 09:55 Inspired O2 21 07/18/18 09:55 Tidal Volume NA 07/18/18 09:55 PEEP NA 07/18/18 09:55 Pressure (ins/psv/peep) NA 07/18/18 09:55 Critical Value SH 07/18/18 09:55 Sodium 160 mEq/L (136-145) H* 07/20/18 05:40 Potassium 3.8 mEq/L (3.5-5.1) 07/20/18 05:40 Chloride 125 mEq/L (98-107) H 07/20/18 05:40 Carbon Dioxide 24.3 mEq/L (21.0-31.0) 07/20/18 05:40 Anion Gap 14.5 (7.0-16.0) 07/20/18 05:40 BUN 84 mg/dL (7-25) H* 07/20/18 05:40 Creatinine 1.8 mg/dL (0.7-1.3) H 07/20/18 05:40 Est GFR ( Amer) TNP 07/20/18 05:40 Est GFR (Non-Af Amer) TNP 07/20/18 05:40 BUN/Creatinine Ratio 46.7 07/20/18 05:40 Glucose 211 mg/dL (70-105) H 07/20/18 05:40 POC Glucose 166 MG/DL (70 - 105) H 07/20/18 06:45 Whole Bld Lactic Acid 1.00 mmol/L (0.60-1.99) 07/19/18 06:00 Uric Acid 9.8 mg/dL (4.4-7.6) H 07/19/18 06:00 Calcium 9.1 mg/dL (8.6-10.3) 07/20/18 05:40 Phosphorus 2.6 mg/dL (2.5-5.0) 07/19/18 06:00 Magnesium 3.2 mg/dL (1.9-2.7) H 07/20/18 05:40 Total Bilirubin 0.7 mg/dL (0.3-1.0) 07/17/18 09:00 AST 20 U/L (13-39) 07/17/18 09:00 ALT 14 U/L (7-52) 07/17/18 09:00 Alkaline Phosphatase 83 U/L (34-104) 07/17/18 09:00 Creatine Kinase 205 U/L (30-223) 07/17/18 09:00 Troponin I 0.19 ng/mL (0.01-0.05) H* D 07/17/18 09:00 B-Natriuretic Peptide 77.6 pg/mL (5.0-100.0) 07/17/18 09:00 Total Protein 8.1 gm/dL (6.0-8.3) 07/17/18 09:00 Albumin 3.8 gm/dL (4.2-5.5) L 07/17/18 09:00 Globulin 4.3 gm/dL 07/17/18 09:00 Albumin/Globulin Ratio 0.9 (1.0-1.8) L 07/17/18 09:00 TSH 0.17 uIU/ml (0.34-5.60) L 07/19/18 06:00 Urine Source CLEAN C 07/17/18 11:50 Urine Color YELLOW 07/17/18 11:50 Urine Clarity SLIGHTLY HAZY (CLEAR) 07/17/18 11:50 Urine pH 6.0 (4.6 - 8.0) 07/17/18 11:50 Ur Specific [place] 1.025 (1.005-1.030) 07/17/18 11:50 Urine Protein NEGATIVE mg/dL (NEGATIVE) 07/17/18 11:50 Urine Glucose (UA) NEGATIVE mg/dL (NEGATIVE) 07/17/18 11:50 Urine Ketones NEGATIVE mg/dL (NEGATIVE) 07/17/18 11:50 Urine Blood MODERATE (NEGATIVE) H 07/17/18 11:50 Urine Nitrate NEGATIVE (NEGATIVE) 07/17/18 11:50 Urine Bilirubin NEGATIVE (NEGATIVE) 07/17/18 11:50 Urine Urobilinogen 0.2 E.U./dL (0.2 - 1.0) 07/17/18 11:50 Ur Leukocyte Esterase NEGATIVE (NEGATIVE) 07/17/18 11:50 Urine RBC 5-10 /hpf (0-5) H 07/17/18 11:50 Urine WBC 2-5 /hpf (0-5) 07/17/18 11:50 Ur Epithelial Cells OCCASIONAL /lpf (FEW) 07/17/18 11:50 Urine Bacteria FEW /hpf (NONE SEEN) 07/17/18 11:50 Urine Mucus FEW /lpf (FEW) 07/17/18 11:50 Ur Random Sodium 20 mmol/L 07/18/18 18:00 Urine Creatinine 110.0 mg/dl (39.0-259.0) 07/18/18 18:00 Random Vancomycin 9.2 ug/mL (5.0-40.0) 07/20/18 05:40 - Physical Exam Vitals and I&O: Vital Signs Temp 96.8 F 07/20/18 08:00 Pulse 60 07/20/18 08:16 Resp 24 07/20/18 10:26 BP 114/54 07/20/18 08:16 Pulse Ox 100 07/20/18 08:00 Intake & Output 07/19/18 07/20/18 07/20/18 18:59 06:59 18:59 Intake Total 1050 1006.25 883.75 Balance 1050 1006.25 883.75 Weight (lbs) 66.224 kg Intake: Intake, IV Amount 1050 1006.25 883.75 Dextrose 5% 1,000 ml @ 75 1000 956.25 883.75 mls/hr IV .[id number] [facility] Rx#:[id number] Piperacillin Sodium/ 50 50 Tazobact 2.25 gm In Sodium Chloride 0.9% 50 ml @ 100 mls/hr IV Q8HR [facility] Rx#:[id number] Other: # Voids 2 Weight Source Bedscale Active Medications: Current Medications Acetaminophen (Tylenol Extra Strength) 1,000 mg PO Q4H PRN PRN Reason: Pain (Moderate) Stop: 09/15/18 15:15 Acetaminophen (Tylenol) 650 mg PO Q4HR PRN PRN Reason: Mild Pain or Fever >101 Stop: 09/15/18 15:18 Acetylcysteine (Mucomyst 20%) 3 ml HHN Q4HRT [facility] Stop: 09/16/18 10:59 Last Admin: 07/20/18 07:04 Dose: 3 ml Albuterol Sulfate (Albuterol 2.5mg/3ml Neb Ud) 2.5 mg HHN Q4HRT [facility] Stop: 09/16/18 18:59 Last Admin: 07/20/18 07:04 Dose: 2.5 mg Amlodipine Besylate (Norvasc) 5 mg PO DAILY [facility] Stop: 09/16/18 08:59 Last Admin: 07/20/18 08:16 Dose: Not Given Dextrose (D50w) 50 ml IVP PRN PRN PRN Reason: Blood Glucose less than 70 Stop: 09/17/18 14:15 Dextrose (Glutose 40%) 18.75 gm PO PRN PRN PRN Reason: Blood Glucose less than 70 Stop: 09/17/18 14:15 Glucagon (Glucagen) 1 mg IM PRN PRN PRN Reason: Blood Glucose less than 70 Stop: 09/17/18 14:15 Piperacillin Sod/Tazobactam (Sod 2.25 gm/ Sodium Chloride) 50 mls @ 100 mls/hr IV Q8HR [facility] Stop: 09/15/18 20:59 Last Admin: 07/20/18 05:46 Dose: 100 mls/hr Dextrose (D5w) 1,000 mls @ 75 mls/hr IV .[id number] [facility] Stop: 09/16/18 17:44 Last Admin: 07/20/18 08:46 Dose: 75 mls/hr Vancomycin HCl 1 gm/ Sodium (Chloride) 250 mls @ 165 mls/hr IV 1100 [facility] Stop: 09/18/18 10:59 Insulin Human Lispro (Humalog Insulin Sliding Scale) 0 units SUBQ Q6HR [facility]; Protocol Stop: 09/17/18 17:59 Last Admin: 07/20/18 06:48 Dose: 3 units Methylprednisolone Sodium Succinate (Solu-Medrol) 40 mg IVP Q6HR [facility] Stop: 09/16/18 11:59 Last Admin: 07/20/18 05:45 Dose: 40 mg Miscellaneous (Vancomycin Iv Per Pharmacy) 1 ea MC PRN PRN PRN Reason: PROTOCOL Stop: 09/16/18 16:40 Mupirocin (Bactroban Oint) 1 appl NS BID [facility] Stop: 07/24/18 09:01 Last Admin: 07/20/18 08:20 Dose: 1 appl General: no acute distress, well developed, well nourished HEENT: atraumatic, normocephalic, PERRLA, EOMI Neck: supple, no thyromegaly Cardiovascular: S1S2, regular Lungs: clear to auscultation bilaterally, clear to percussion Abdomen: soft, no tender, no distended Extremities: no cyanosis, no clubbing, no edema Neurological: awake, alert Skin: intact - Procedures Procedures: Procedures Procedure Code Date GROUP PSYCHOTHERAPY 14126 06/14/15 GROUP PSYCHOTHERAPY [id number] 06/14/15 INSERT EMERGENCY AIRWAY 77292 09/17/16 INSERTION OF ENDOTRACHEAL AIRWAY INTO [place]HE[place], VIA OPENING [id number] 09/17/16 RESPIRATORY VENTILATION, 24-96 CONSECUTIVE HOURS [id number] 09/17/16 VENT MGMT INPAT INIT DAY 11591 09/17/16 VENT MGMT INPAT SUBQ DAY 64148 09/17/16 Infectious Disease Assmt/Plan - Assessment Assessment: 1. Sepsis. 2. Pneumonia. 3. Dysphagia. 4. Weakness. 5. Dementia. 6. Respiratory failure. 7. SUSIE. 8. Dehydration improving. - Plan Plan: Continue Vanco IV and zosyn. Gi consult
--- NOTE | 2018-07-20 13:17 | General Progress Note ---
Subjective - Review of Systems Service Date: 07/20/18 Subjective: more awake, nonverbal, comfortable Objective - Results Result Diagrams: 07/20/18 05:40 07/20/18 05:40 Recent Labs: Laboratory Last Values WBC 16.1 Th/cmm (4.8-10.8) H 07/20/18 05:40 RBC 4.65 Mil/cmm (3.80-5.80) 07/20/18 05:40 Hgb 13.8 gm/dL (12-16) 07/20/18 05:40 Hct 42.3 % (41.0-60) 07/20/18 05:40 MCV 91.0 fl (80-99) 07/20/18 05:40 MCH 29.7 pg (27.0-31.0) 07/20/18 05:40 MCHC Differential 32.6 pg (28.0-36.0) 07/20/18 05:40 RDW 15.7 % (11.5-20.0) 07/20/18 05:40 Plt Count 220 Th/cmm (150-400) 07/20/18 05:40 MPV 11.7 fl 07/20/18 05:40 Add Manual Diff YES 07/20/18 05:40 Neutrophils % 93.9 % (40.0-80.0) H 07/19/18 06:00 Band Neutrophils % 0 % (0-10) 07/20/18 05:40 Lymphocytes % 4.8 % (20.0-50.0) L 07/19/18 06:00 Monocytes % 1.2 % (2.0-10.0) L 07/19/18 06:00 Eosinophils % 0.0 % (0.0-5.0) 07/19/18 06:00 Basophils % 0.0 % (0.0-2.0) 07/19/18 06:00 Neutrophils (Manual) 92 % (40-80) H 07/20/18 05:40 Lymphocytes 5 % (20-50) L 07/20/18 05:40 Monocytes 3 % (2-10) 07/20/18 05:40 Eosinophils 0 % (0-5) 07/20/18 05:40 Basophils 0 % (0-3) 07/20/18 05:40 Eos Smear Source URINE 07/18/18 18:00 Eos Smear Total Cells NONE SEEN (NONE SEEN) 07/18/18 18:00 Specimen Source Arterial 07/18/18 09:55 Sample Site RB 07/18/18 09:55 pH 7.291 (7.35-7.45) L 07/18/18 09:55 pCO2 51.9 mmHg (35.0-45.0) H 07/18/18 09:55 pO2 81.1 mmHg (80.0-100.0) 07/18/18 09:55 HCO3 24.5 mEq/L (20.0-26.0) 07/18/18 09:55 Base Excess -2.8 mEq/L (-3.0-3.0) 07/18/18 09:55 O2 Saturation 94.6 % (92.0-100.0) 07/18/18 09:55 Adebayo Test NA 07/18/18 09:55 Vent Rate NA 07/18/18 09:55 Inspired O2 21 07/18/18 09:55 Tidal Volume NA 07/18/18 09:55 PEEP NA 07/18/18 09:55 Pressure (ins/psv/peep) NA 07/18/18 09:55 Critical Value SH 07/18/18 09:55 Sodium 160 mEq/L (136-145) H* 07/20/18 05:40 Potassium 3.8 mEq/L (3.5-5.1) 07/20/18 05:40 Chloride 125 mEq/L (98-107) H 07/20/18 05:40 Carbon Dioxide 24.3 mEq/L (21.0-31.0) 07/20/18 05:40 Anion Gap 14.5 (7.0-16.0) 07/20/18 05:40 BUN 84 mg/dL (7-25) H* 07/20/18 05:40 Creatinine 1.8 mg/dL (0.7-1.3) H 07/20/18 05:40 Est GFR ( Amer) TNP 07/20/18 05:40 Est GFR (Non-Af Amer) TNP 07/20/18 05:40 BUN/Creatinine Ratio 46.7 07/20/18 05:40 Glucose 211 mg/dL (70-105) H 07/20/18 05:40 POC Glucose 169 MG/DL (70 - 105) H 07/20/18 11:36 Whole Bld Lactic Acid 1.00 mmol/L (0.60-1.99) 07/19/18 06:00 Uric Acid 9.8 mg/dL (4.4-7.6) H 07/19/18 06:00 Calcium 9.1 mg/dL (8.6-10.3) 07/20/18 05:40 Phosphorus 2.6 mg/dL (2.5-5.0) 07/19/18 06:00 Magnesium 3.2 mg/dL (1.9-2.7) H 07/20/18 05:40 Total Bilirubin 0.7 mg/dL (0.3-1.0) 07/17/18 09:00 AST 20 U/L (13-39) 07/17/18 09:00 ALT 14 U/L (7-52) 07/17/18 09:00 Alkaline Phosphatase 83 U/L (34-104) 07/17/18 09:00 Creatine Kinase 205 U/L (30-223) 07/17/18 09:00 Troponin I 0.19 ng/mL (0.01-0.05) H* D 07/17/18 09:00 B-Natriuretic Peptide 77.6 pg/mL (5.0-100.0) 07/17/18 09:00 Total Protein 8.1 gm/dL (6.0-8.3) 07/17/18 09:00 Albumin 3.8 gm/dL (4.2-5.5) L 07/17/18 09:00 Globulin 4.3 gm/dL 07/17/18 09:00 Albumin/Globulin Ratio 0.9 (1.0-1.8) L 07/17/18 09:00 TSH 0.17 uIU/ml (0.34-5.60) L 07/19/18 06:00 Urine Source CLEAN C 07/17/18 11:50 Urine Color YELLOW 07/17/18 11:50 Urine Clarity SLIGHTLY HAZY (CLEAR) 07/17/18 11:50 Urine pH 6.0 (4.6 - 8.0) 07/17/18 11:50 Ur Specific [place] 1.025 (1.005-1.030) 07/17/18 11:50 Urine Protein NEGATIVE mg/dL (NEGATIVE) 07/17/18 11:50 Urine Glucose (UA) NEGATIVE mg/dL (NEGATIVE) 07/17/18 11:50 Urine Ketones NEGATIVE mg/dL (NEGATIVE) 07/17/18 11:50 Urine Blood MODERATE (NEGATIVE) H 07/17/18 11:50 Urine Nitrate NEGATIVE (NEGATIVE) 07/17/18 11:50 Urine Bilirubin NEGATIVE (NEGATIVE) 07/17/18 11:50 Urine Urobilinogen 0.2 E.U./dL (0.2 - 1.0) 07/17/18 11:50 Ur Leukocyte Esterase NEGATIVE (NEGATIVE) 07/17/18 11:50 Urine RBC 5-10 /hpf (0-5) H 07/17/18 11:50 Urine WBC 2-5 /hpf (0-5) 07/17/18 11:50 Ur Epithelial Cells OCCASIONAL /lpf (FEW) 07/17/18 11:50 Urine Bacteria FEW /hpf (NONE SEEN) 07/17/18 11:50 Urine Mucus FEW /lpf (FEW) 07/17/18 11:50 Ur Random Sodium 20 mmol/L 07/18/18 18:00 Urine Creatinine 110.0 mg/dl (39.0-259.0) 07/18/18 18:00 Random Vancomycin 9.2 ug/mL (5.0-40.0) 07/20/18 05:40 - Physical Exam Vitals and I&O: Vital Signs Temp 97 F 07/20/18 12:00 Pulse 62 07/20/18 12:00 Resp 20 07/20/18 12:00 BP 92/58 07/20/18 12:00 Pulse Ox 100 07/20/18 12:00 Intake & Output 07/19/18 07/20/18 07/20/18 18:59 06:59 18:59 Intake Total 1050 1056.25 883.75 Balance 1050 1056.25 883.75 Weight (lbs) 66.224 kg Intake: Intake, IV Amount 1050 1056.25 883.75 Dextrose 5% 1,000 ml @ 75 1000 956.25 883.75 mls/hr IV .[id number] [facility] Rx#:[id number] Piperacillin Sodium/ 50 100 Tazobact 2.25 gm In Sodium Chloride 0.9% 50 ml @ 100 mls/hr IV Q8HR [facility] Rx#:[id number] Other: # Voids 2 Weight Source Bedscale Active Medications: Current Medications Acetaminophen (Tylenol Extra Strength) 1,000 mg PO Q4H PRN PRN Reason: Pain (Moderate) Stop: 09/15/18 15:15 Acetaminophen (Tylenol) 650 mg PO Q4HR PRN PRN Reason: Mild Pain or Fever >101 Stop: 09/15/18 15:18 Acetylcysteine (Mucomyst 20%) 3 ml HHN Q4HRT [facility] Stop: 09/16/18 10:59 Last Admin: 07/20/18 11:32 Dose: 3 ml Albuterol Sulfate (Albuterol 2.5mg/3ml Neb Ud) 2.5 mg HHN Q4HRT [facility] Stop: 09/16/18 18:59 Last Admin: 07/20/18 11:32 Dose: 2.5 mg Amlodipine Besylate (Norvasc) 5 mg PO DAILY [facility] Stop: 09/16/18 08:59 Last Admin: 07/20/18 08:16 Dose: Not Given Dextrose (D50w) 50 ml IVP PRN PRN PRN Reason: Blood Glucose less than 70 Stop: 09/17/18 14:15 Dextrose (Glutose 40%) 18.75 gm PO PRN PRN PRN Reason: Blood Glucose less than 70 Stop: 09/17/18 14:15 Glucagon (Glucagen) 1 mg IM PRN PRN PRN Reason: Blood Glucose less than 70 Stop: 09/17/18 14:15 Piperacillin Sod/Tazobactam (Sod 2.25 gm/ Sodium Chloride) 50 mls @ 100 mls/hr IV Q8HR [facility] Stop: 09/15/18 20:59 Last Admin: 07/20/18 12:45 Dose: 100 mls/hr Dextrose (D5w) 1,000 mls @ 75 mls/hr IV .[id number] [facility] Stop: 09/16/18 17:44 Last Admin: 07/20/18 08:46 Dose: 75 mls/hr Vancomycin HCl 1 gm/ Sodium (Chloride) 250 mls @ 165 mls/hr IV 1100 [facility] Stop: 09/18/18 10:59 Last Admin: 07/20/18 11:20 Dose: 165 mls/hr Insulin Human Lispro (Humalog Insulin Sliding Scale) 0 units SUBQ Q6HR [facility]; Protocol Stop: 09/17/18 17:59 Last Admin: 07/20/18 12:03 Dose: 3 units Methylprednisolone Sodium Succinate (Solu-Medrol) 40 mg IVP Q6HR [facility] Stop: 09/16/18 11:59 Last Admin: 07/20/18 11:19 Dose: 40 mg Miscellaneous (Vancomycin Iv Per Pharmacy) 1 ea MC PRN PRN PRN Reason: PROTOCOL Stop: 09/16/18 16:40 Mupirocin (Bactroban Oint) 1 appl NS BID [facility] Stop: 07/24/18 09:01 Last Admin: 07/20/18 08:20 Dose: 1 appl General: Alert, Mild distress HEENT: Atraumatic, EOMI, Mucous membr. moist/pink Neck: Supple, +2 carotid pulse wo bruit Cardiovascular: Regular rate, Normal S1, Normal S2 Lungs: Other (scattered rhonchi) Abdomen: Bowel sounds, Soft Extremities: no Edema Neurological: Sensation intact Skin: no Rash Psych/Mental Status: Mood NL - Procedures Procedures: Procedures Procedure Code Date GROUP PSYCHOTHERAPY 16614 06/14/15 GROUP PSYCHOTHERAPY [id number] 06/14/15 INSERT EMERGENCY AIRWAY 87547 09/17/16 INSERTION OF ENDOTRACHEAL AIRWAY INTO [place], VIA OPENING [id number] 09/17/16 RESPIRATORY VENTILATION, 24-96 CONSECUTIVE HOURS [id number] 09/17/16 VENT MGMT INPAT INIT DAY 50387 09/17/16 VENT MGMT INPAT SUBQ DAY 72798 09/17/16 Assessment/Plan - Assessment Assessment: SUSIE on CKD Pneumonitis Resp Failure 2/2 Exac COPD Hypernatremia Dehydration Ess Htn w/ CKD CAD New Onset T2DM - Plan Plan: Lab - Result Diagrams 07/19/18 06:00 07/19/18 06:00 Current Medications Acetaminophen (Tylenol Extra Strength) 1,000 mg PO Q4H PRN PRN Reason: Pain (Moderate) Stop: 09/15/18 15:15 Acetaminophen (Tylenol) 650 mg PO Q4HR PRN PRN Reason: Mild Pain or Fever >101 Stop: 09/15/18 15:18 Acetylcysteine (Mucomyst 20%) 3 ml HHN Q4HRT [facility] Stop: 09/16/18 10:59 Last Admin: 07/19/18 14:05 Dose: 3 ml Albuterol Sulfate (Albuterol 2.5mg/3ml Neb Ud) 2.5 mg HHN Q4HRT [facility] Stop: 09/16/18 18:59 Last Admin: 07/19/18 14:04 Dose: 2.5 mg Amlodipine Besylate (Norvasc) 5 mg PO DAILY [facility] Stop: 09/16/18 08:59 Last Admin: 07/19/18 08:11 Dose: Not Given Piperacillin Sod/Tazobactam (Sod 2.25 gm/ Sodium Chloride) 50 mls @ 100 mls/hr IV Q8HR [facility] Stop: 09/15/18 20:59 Last Admin: 07/19/18 11:59 Dose: 100 mls/hr Dextrose (D5w) 1,000 mls @ 75 mls/hr IV .[id number] [facility] Stop: 09/16/18 17:44 Last Admin: 07/19/18 08:14 Dose: 75 mls/hr Methylprednisolone Sodium Succinate (Solu-Medrol) 40 mg IVP Q6HR [facility] Stop: 09/16/18 11:59 Last Admin: 07/19/18 11:08 Dose: 40 mg Miscellaneous (Vancomycin Iv Per Pharmacy) 1 ea MC PRN PRN PRN Reason: PROTOCOL Stop: 09/16/18 16:40 Lab - Result Diagrams 07/20/18 05:40 07/20/18 05:40 Kidney fnc better w/ BUN/CR 84/1.8 Na up to 160? contunue D5W replace K WBC down to 16 CXR basically the same BS elevated, start SS f/u electrolytes, cbc passed swallow eval but await GI consult
--- NOTE | 2018-07-20 13:29 | Diagnostic Imaging Report ---
Barium swallow (modified video swallowing conjunction with speech pathology). HISTORY: Aspiration, dysphagia The exam was performed in conjunction with speech pathology. Exam is limited to evaluation of the oropharynx and hypopharyngeal regions. The thoracic esophagus was not evaluated. Exam Limited due to difficulty in patient positioning. The lower hypopharyngeal region is incompletely seen. Barium preparations of varying density inconsistency were administered by mouth. No obvious aspiration identified. IMPRESSION: 1. Limited examination as noted above 2. No obvious aspiration 1 minute 25 seconds fluoroscopy time was utilized
--- NOTE | 2018-07-20 23:28 | Progress Notes ---
DATE: 07/20/2018 PULMONARY PROGRESS NOTE SUBJECTIVE: The patient appears to be doing well. No distress, awake, alert. OBJECTIVE: VITAL SIGNS: Temperature 97.8, pulse 61, respiration 18, blood pressure 143/65, saturation 98%. CHEST: Good breath sounds, decreased rhonchi. HEART: Regular rate and rhythm. No murmurs. ABDOMEN: Soft. No tenderness. EXTREMITIES: No edema. LABORATORY DATA: WBC 16.1, hemoglobin 13.8, hematocrit 42.3, platelets 220. Sodium 160, potassium is 3.8, BUN is 84, creatinine 1.8. IMPRESSION: 1. Respiratory failure. 2. Pneumonia. 3. Dysphagia. 4. Weakness. 5. Hypernatremia, volume depletion. PLAN: 1. Continue nebulizer. 2. Antibiotics. 3. IV fluids, decrease. 4. Decrease steroids. 5. We will followup chest x-ray. JOB# [id number]
[2018-07-21] MEDS: methylPREDNISolone SS 40 mg Vial IVP SCH ×4 (00:07→17:14)
[2018-07-21] MEDS: Dextrose 5% 1,000 ML IV SCH (00:08)
[2018-07-21] MEDS: INSULIN LISPRO SLIDING SCALE 100 UNITS/ML UNIT SUBQ SCH ×4 (00:08→17:14)
[2018-07-21] MEDS: Albuterol Nebulizer 2.5mg/3mL HHN SCH ×4 (02:03→14:08)
[2018-07-21] MEDS: Piperacillin/Tazobact 2.25 gm in 0.9% NS 50 ML IV SCH ×2 (04:49→12:04)
[2018-07-21 06:29] LABS: HEMATOCRIT 40.8 % (41.0-60); HEMOGLOBIN 13.4 gm/dL (12-16); MEAN CELL VOLUME 91.5 fl (80-99); MEAN CORPUSCULAR HGB CONC 32.8 pg (28.0-36.0); MEAN PLATELET VOLUME 10.6 fl; PLATELET COUNT 192 Th/cmm (150-400); RED BLOOD COUNT 4.45 Mil/cmm (3.80-5.80); RED CELL DISTRIBUTION WIDTH 15.3 % (11.5-20.0); WHITE BLOOD COUNT 12.8 Th/cmm (4.8-10.8)
[2018-07-21 06:59] LABS: ANION GAP 11.1 (7.0-16.0); BUN - UREA NITROGEN 70 mg/dL (7-25); CALCIUM SERUM 8.7 mg/dL (8.6-10.3); CARBON DIOXIDE 25.6 mEq/L (21.0-31.0); CHLORIDE 123 mEq/L (98-107); CREATININE - SERUM 1.6 mg/dL (0.7-1.3); GLUCOSE 192 mg/dL (70-105); POTASSIUM SERUM 3.7 mEq/L (3.5-5.1); SODIUM SERUM 156 mEq/L (136-145)
--- NOTE | 2018-07-21 07:26 | Diagnostic Imaging Report ---
Portable chest x-ray HISTORY: Shortness of breath Compared to prior exam of July 20, 2018, there is a poor inspiration. The heart appears somewhat enlarged. No definite focal pulmonary processes are seen at this time. IMPRESSION: 1. No acute focal pulmonary processes 2. Cardiomegaly
--- NOTE | 2018-07-21 10:51 | Diagnostic Imaging Report ---
Portable chest x-ray HISTORY: Aspiration, status post barium swallow Compared with the prior exam of July 19, 2018, the heart remains enlarged. Residual contrast is seen in the lower esophagus and upper gastric region consistent with patient's recent barium swallow. No radiopaque contrast is seen within the lungs. Specifically, no evidence of aspiration. Previously noted infiltrate within the right lower lobe has diminished since the prior study. IMPRESSION: 1. No contrast identified within the lung/bronchial tree. Specifically, no evidence of aspiration. 2. Diminished infiltrate right lower lobe since the exam of July 19, 2018 3. Persistent cardiomegaly with atherosclerotic vascular changes
--- NOTE | 2018-07-21 10:51 | Consultation ---
DATE OF CONSULTATION: 07/21/2018 INPATIENT GI CONSULTATION CONSULTING PHYSICIAN: Dr. Layne and Dr. Duy Augustin. REASON FOR CONSULTATION: Possible G-tube placement, dysphagia. HISTORY OF PRESENT ILLNESS: The patient is an 83-year-old male with a history of psychosis, hypertension, seizure disorder, COPD, who was admitted to the hospital with pneumonia. The patient was initially admitted on 07/18/2018 after failing a course of oral antibiotic therapy and suffering from shortness of breath and fevers. He was found to have pneumonia by imaging and thus has been treated with IV antibiotics for the past several days; however, it was thought that the patient may be aspirating as the cause of his pneumonia and he had swallowing evaluation done by speech and swallow consultation. They have determined that he actually passed a swallow evaluation and recommended a pureed diet; however, there is some concern that the patient is not eating enough on his own and thus a GI consultation is placed. PAST MEDICAL HISTORY: Hypertension, psychosis, chronic obstructive pulmonary disease, and arthritis. PAST SURGICAL HISTORY: Unknown. FAMILY HISTORY: Noncontributory. SOCIAL HISTORY: The patient lives in a nursing facility. There is no documented history of alcoholism or illicit drug use. ALLERGIES: No known drug allergies reported. REVIEW OF SYSTEMS: Not possible given the patient is unable to fully participate in the interview process. CURRENT MEDICATIONS: Tylenol, Mucomyst, albuterol, amlodipine, IV fluid, glucagon, insulin, steroid. PHYSICAL EXAMINATION: VITAL SIGNS: Blood pressure is 135/48, pulse is 70 beats per minute, respiratory rate of 20, temperature 97.5. GENERAL: The patient is lying on his back 45 degrees, alert and oriented x 1, does not appear to be in acute distress. HEAD, EARS, EYES, NOSE AND THROAT: Normocephalic, atraumatic appearing head. Pupils are equal and reactive. Extraocular muscles are intact. There are dry mucous membranes. NECK: There is JVD. There is no thyromegaly. CHEST: There are crackles heard bilaterally. CARDIOVASCULAR: S1, S2 are present, regular rate and rhythm. ABDOMEN: Soft, thin, nontender to palpation. There is no guarding or rebound. EXTREMITIES: 1+ pitting edema bilaterally. Pulses are not present. SKIN: There is no jaundice. LABORATORY DATA: White blood cell count is 12.8, hemoglobin is 13.4, and platelet count is 192. The sodium is 156 and BUN 70, creatinine is 1.6. No abdominal imaging has been performed. IMPRESSION: This is an 83-year-old male with history of psychosis, seizure disorder, COPD, pneumonia, admitted to the hospital with another episode of pneumonia. 1. Infectious pneumonia. 2. Chronic obstructive pulmonary disease. 3. Dementia. 4. Seizure disorder. 5. History of psychosis. DISCUSSION: This patient actually passed a swallowing evaluation as per the documented speech and swallow note and they have recommended a pureed diet; however, I do see that he may not be having enough nutrition volitionally and would require likely to be fed on a 1:1 basis and there still may be some aspiration risk, thus we can reach out to the patient's healthcare proxy to determine whether they may be amenable to G-tube placement for this issue, which would allow the patient to achieve better enteral nutrition and avoid aspiration. RECOMMENDATIONS: 1. If the patient's healthcare proxy is amenable, we can plan for G-tube placement; however, it is also reasonable for them, if they want to continue with pureed diet as he did pass a swallowing evaluation. We will have to determine what the family wants to do. 2. Management of the patient's pneumonia as per primary. 3. If the patient and the healthcare proxy did not want to go forward with the G-tube placement, then they can be placed and recommended that by speech and swallow consult. Thank you for allowing me to participate in his care. Please call with any questions. [facility]# [id number]
--- NOTE | 2018-07-21 13:25 | Infectious Disease Prog Note ---
Infectious Disease Subjective - Review of Systems Service Date: 07/21/18 Subjective: passed swallow evaluation. There is no new change, no fever. Infectious Disease Objective - Results Result Diagrams: 07/21/18 05:40 07/21/18 05:40 Recent Labs: Laboratory Last Values WBC 12.8 Th/cmm (4.8-10.8) H 07/21/18 05:40 RBC 4.45 Mil/cmm (3.80-5.80) 07/21/18 05:40 Hgb 13.4 gm/dL (12-16) 07/21/18 05:40 Hct 40.8 % (41.0-60) L 07/21/18 05:40 MCV 91.5 fl (80-99) 07/21/18 05:40 MCH 30.0 pg (27.0-31.0) 07/21/18 05:40 MCHC Differential 32.8 pg (28.0-36.0) 07/21/18 05:40 RDW 15.3 % (11.5-20.0) 07/21/18 05:40 Plt Count 192 Th/cmm (150-400) 07/21/18 05:40 MPV 10.6 fl 07/21/18 05:40 Add Manual Diff YES 07/21/18 05:40 Neutrophils % 93.9 % (40.0-80.0) H 07/19/18 06:00 Band Neutrophils % 0 % (0-10) 07/20/18 05:40 Lymphocytes % 4.8 % (20.0-50.0) L 07/19/18 06:00 Monocytes % 1.2 % (2.0-10.0) L 07/19/18 06:00 Eosinophils % 0.0 % (0.0-5.0) 07/19/18 06:00 Basophils % 0.0 % (0.0-2.0) 07/19/18 06:00 Neutrophils (Manual) Not Reportable 07/21/18 05:40 Lymphocytes 5 % (20-50) L 07/20/18 05:40 Monocytes 3 % (2-10) 07/20/18 05:40 Eosinophils 0 % (0-5) 07/20/18 05:40 Basophils 0 % (0-3) 07/20/18 05:40 Eos Smear Source URINE 07/18/18 18:00 Eos Smear Total Cells NONE SEEN (NONE SEEN) 07/18/18 18:00 Specimen Source Arterial 07/18/18 09:55 Sample Site RB 07/18/18 09:55 pH 7.291 (7.35-7.45) L 07/18/18 09:55 pCO2 51.9 mmHg (35.0-45.0) H 07/18/18 09:55 pO2 81.1 mmHg (80.0-100.0) 07/18/18 09:55 HCO3 24.5 mEq/L (20.0-26.0) 07/18/18 09:55 Base Excess -2.8 mEq/L (-3.0-3.0) 07/18/18 09:55 O2 Saturation 94.6 % (92.0-100.0) 07/18/18 09:55 Adebayo Test NA 07/18/18 09:55 Vent Rate NA 07/18/18 09:55 Inspired O2 21 07/18/18 09:55 Tidal Volume NA 07/18/18 09:55 PEEP NA 07/18/18 09:55 Pressure (ins/psv/peep) NA 07/18/18 09:55 Critical Value SH 07/18/18 09:55 Sodium 156 mEq/L (136-145) H 07/21/18 05:40 Potassium 3.7 mEq/L (3.5-5.1) 07/21/18 05:40 Chloride 123 mEq/L (98-107) H 07/21/18 05:40 Carbon Dioxide 25.6 mEq/L (21.0-31.0) 07/21/18 05:40 Anion Gap 11.1 (7.0-16.0) 07/21/18 05:40 BUN 70 mg/dL (7-25) H 07/21/18 05:40 Creatinine 1.6 mg/dL (0.7-1.3) H 07/21/18 05:40 Est GFR ( Amer) TNP 07/21/18 05:40 Est GFR (Non-Af Amer) TNP 07/21/18 05:40 BUN/Creatinine Ratio 43.8 07/21/18 05:40 Glucose 192 mg/dL (70-105) H 07/21/18 05:40 POC Glucose 156 MG/DL (70 - 105) H 07/21/18 11:50 Whole Bld Lactic Acid 1.00 mmol/L (0.60-1.99) 07/19/18 06:00 Uric Acid 9.8 mg/dL (4.4-7.6) H 07/19/18 06:00 Calcium 8.7 mg/dL (8.6-10.3) 07/21/18 05:40 Phosphorus 2.6 mg/dL (2.5-5.0) 07/19/18 06:00 Magnesium 3.2 mg/dL (1.9-2.7) H 07/20/18 05:40 Total Bilirubin 0.7 mg/dL (0.3-1.0) 07/17/18 09:00 AST 20 U/L (13-39) 07/17/18 09:00 ALT 14 U/L (7-52) 07/17/18 09:00 Alkaline Phosphatase 83 U/L (34-104) 07/17/18 09:00 Creatine Kinase 205 U/L (30-223) 07/17/18 09:00 Troponin I 0.19 ng/mL (0.01-0.05) H* D 07/17/18 09:00 B-Natriuretic Peptide 77.6 pg/mL (5.0-100.0) 07/17/18 09:00 Total Protein 8.1 gm/dL (6.0-8.3) 07/17/18 09:00 Albumin 3.8 gm/dL (4.2-5.5) L 07/17/18 09:00 Globulin 4.3 gm/dL 07/17/18 09:00 Albumin/Globulin Ratio 0.9 (1.0-1.8) L 07/17/18 09:00 TSH 0.17 uIU/ml (0.34-5.60) L 07/19/18 06:00 Urine Source CLEAN C 07/17/18 11:50 Urine Color YELLOW 07/17/18 11:50 Urine Clarity SLIGHTLY HAZY (CLEAR) 07/17/18 11:50 Urine pH 6.0 (4.6 - 8.0) 07/17/18 11:50 Ur Specific [place] 1.025 (1.005-1.030) 07/17/18 11:50 Urine Protein NEGATIVE mg/dL (NEGATIVE) 07/17/18 11:50 Urine Glucose (UA) NEGATIVE mg/dL (NEGATIVE) 07/17/18 11:50 Urine Ketones NEGATIVE mg/dL (NEGATIVE) 07/17/18 11:50 Urine Blood MODERATE (NEGATIVE) H 07/17/18 11:50 Urine Nitrate NEGATIVE (NEGATIVE) 07/17/18 11:50 Urine Bilirubin NEGATIVE (NEGATIVE) 07/17/18 11:50 Urine Urobilinogen 0.2 E.U./dL (0.2 - 1.0) 07/17/18 11:50 Ur Leukocyte Esterase NEGATIVE (NEGATIVE) 07/17/18 11:50 Urine RBC 5-10 /hpf (0-5) H 07/17/18 11:50 Urine WBC 2-5 /hpf (0-5) 07/17/18 11:50 Ur Epithelial Cells OCCASIONAL /lpf (FEW) 07/17/18 11:50 Urine Bacteria FEW /hpf (NONE SEEN) 07/17/18 11:50 Urine Mucus FEW /lpf (FEW) 07/17/18 11:50 Urine Osmolality 629 mOsmol/kg 07/18/18 18:00 Ur Random Sodium 20 mmol/L 07/18/18 18:00 Urine Creatinine 110.0 mg/dl (39.0-259.0) 07/18/18 18:00 Microalb/Creat Ratio 77.8 mg/g creat (0.0-30.0) H 07/18/18 18:00 Random Vancomycin 10.9 ug/mL (5.0-40.0) 07/21/18 05:40 - Physical Exam Vitals and I&O: Vital Signs Temp 96.3 F 07/21/18 12:00 Pulse 66 07/21/18 12:00 Resp 18 07/21/18 12:12 BP 146/51 07/21/18 12:00 Pulse Ox 98 07/21/18 12:00 Intake & Output 07/20/18 07/21/18 07/21/18 18:59 06:59 18:59 Intake Total 933.75 1100 Balance 933.75 1100 Weight (lbs) 66.224 kg Intake: Intake, IV Amount 933.75 1100 Dextrose 5% 1,000 ml @ 75 883.75 1000 mls/hr IV .[id number] [facility] Rx#:[id number] Piperacillin Sodium/ 50 100 Tazobact 2.25 gm In Sodium Chloride 0.9% 50 ml @ 100 mls/hr IV Q8HR [facility] Rx#:[id number] Other: # Voids 2 Weight Source Estimated Active Medications: Current Medications Acetaminophen (Tylenol Extra Strength) 1,000 mg PO Q4H PRN PRN Reason: Pain (Moderate) Stop: 09/15/18 15:15 Acetaminophen (Tylenol) 650 mg PO Q4HR PRN PRN Reason: Mild Pain or Fever >101 Stop: 09/15/18 15:18 Acetylcysteine (Mucomyst 20%) 3 ml HHN Q4HRT [facility] Stop: 09/16/18 10:59 Last Admin: 07/21/18 10:02 Dose: 3 ml Albuterol Sulfate (Albuterol 2.5mg/3ml Neb Ud) 2.5 mg HHN Q4HRT [facility], [facility]–1983 Stop: 09/16/18 18:59 Last Admin: 07/21/18 10:02 Dose: 2.5 mg Amlodipine Besylate (Norvasc) 5 mg PO DAILY [facility], [facility]1983 Stop: 09/16/18 08:59 Last Admin: 07/21/18 08:47 Dose: Not Given Dextrose (D50w) 50 ml IVP PRN PRN PRN Reason: Blood Glucose less than 70 Stop: 09/17/18 14:15 Dextrose (Glutose 40%) 18.75 gm PO PRN PRN PRN Reason: Blood Glucose less than 70 Stop: 09/17/18 14:15 Glucagon (Glucagen) 1 mg IM PRN PRN PRN Reason: Blood Glucose less than 70 Stop: 09/17/18 14:15 Piperacillin Sod/Tazobactam (Sod 2.25 gm/ Sodium Chloride) 50 mls @ 100 mls/hr IV Q8HR [facility]1983 Stop: 09/15/18 20:59 Last Admin: 07/21/18 12:04 Dose: 100 mls/hr Dextrose (D5w) 1,000 mls @ 75 mls/hr IV .[id number] [facility], [facility]1983 Stop: 09/16/18 17:44 Last Admin: 07/21/18 00:08 Dose: 75 mls/hr Insulin Human Lispro (Humalog Insulin Sliding Scale) 0 units SUBQ Q6HR [facility], [facility]; Protocol Stop: 09/17/18 17:59 Last Admin: 07/21/18 12:03 Dose: 3 units Methylprednisolone Sodium Succinate (Solu-Medrol) 40 mg IVP Q6HR [facility]1983 Stop: 09/16/18 11:59 Last Admin: 07/21/18 12:03 Dose: 40 mg Miscellaneous (Vancomycin Iv Per Pharmacy) 1 ea MC PRN PRN PRN Reason: PROTOCOL Stop: 09/16/18 16:40 Mupirocin (Bactroban Oint) 1 appl NS BID [facility], [facility]1983 Stop: 07/24/18 09:01 Last Admin: 07/21/18 08:50 Dose: 1 appl General: no acute distress, well developed, well nourished HEENT: atraumatic, normocephalic, PERRLA, EOMI Neck: supple, no thyromegaly, no lymphadenopathy Cardiovascular: S1S2, regular Lungs: clear to auscultation bilaterally, clear to percussion Abdomen: soft, no tender, no distended Extremities: no cyanosis, no clubbing, no edema Neurological: awake, alert, oriented Skin: intact - Procedures Procedures: Procedures Procedure Code Date GROUP PSYCHOTHERAPY 50585 06/14/15 GROUP PSYCHOTHERAPY [id number] 06/14/15 INSERT EMERGENCY AIRWAY 55531 09/17/16 INSERTION OF ENDOTRACHEAL AIRWAY INTO [place], VIA OPENING [id number] 09/17/16 RESPIRATORY VENTILATION, 24-96 CONSECUTIVE HOURS [id number] 09/17/16 VENT MGMT INPAT INIT DAY [id number] 09/17/16 VENT MGMT INPAT SUBQ DAY 14468 09/17/16 Infectious Disease Assmt/Plan - Assessment Assessment: 1. Sepsis. 2. Pneumonia. 3. Dysphagia. 4. Weakness. 5. Dementia. 6. Respiratory failure. 7. SUSIE. 8. Dehydration improving. - Plan Plan: Continue Vanco IV and zosyn. transfer to the [facility].
--- NOTE | 2018-07-21 15:19 | General Progress Note ---
Subjective - Review of Systems Service Date: 07/21/18 Subjective: more awake, nonverbal, comfortable Objective - Results Result Diagrams: 07/21/18 05:40 07/21/18 05:40 Recent Labs: Laboratory Last Values WBC 12.8 Th/cmm (4.8-10.8) H 07/21/18 05:40 RBC 4.45 Mil/cmm (3.80-5.80) 07/21/18 05:40 Hgb 13.4 gm/dL (12-16) 07/21/18 05:40 Hct 40.8 % (41.0-60) L 07/21/18 05:40 MCV 91.5 fl (80-99) 07/21/18 05:40 MCH 30.0 pg (27.0-31.0) 07/21/18 05:40 MCHC Differential 32.8 pg (28.0-36.0) 07/21/18 05:40 RDW 15.3 % (11.5-20.0) 07/21/18 05:40 Plt Count 192 Th/cmm (150-400) 07/21/18 05:40 MPV 10.6 fl 07/21/18 05:40 Add Manual Diff YES 07/21/18 05:40 Neutrophils % 93.9 % (40.0-80.0) H 07/19/18 06:00 Band Neutrophils % 0 % (0-10) 07/20/18 05:40 Lymphocytes % 4.8 % (20.0-50.0) L 07/19/18 06:00 Monocytes % 1.2 % (2.0-10.0) L 07/19/18 06:00 Eosinophils % 0.0 % (0.0-5.0) 07/19/18 06:00 Basophils % 0.0 % (0.0-2.0) 07/19/18 06:00 Neutrophils (Manual) Not Reportable 07/21/18 05:40 Lymphocytes 5 % (20-50) L 07/20/18 05:40 Monocytes 3 % (2-10) 07/20/18 05:40 Eosinophils 0 % (0-5) 07/20/18 05:40 Basophils 0 % (0-3) 07/20/18 05:40 Eos Smear Source URINE 07/18/18 18:00 Eos Smear Total Cells NONE SEEN (NONE SEEN) 07/18/18 18:00 Specimen Source Arterial 07/18/18 09:55 Sample Site RB 07/18/18 09:55 pH 7.291 (7.35-7.45) L 07/18/18 09:55 pCO2 51.9 mmHg (35.0-45.0) H 07/18/18 09:55 pO2 81.1 mmHg (80.0-100.0) 07/18/18 09:55 HCO3 24.5 mEq/L (20.0-26.0) 07/18/18 09:55 Base Excess -2.8 mEq/L (-3.0-3.0) 07/18/18 09:55 O2 Saturation 94.6 % (92.0-100.0) 07/18/18 09:55 Adebayo Test NA 07/18/18 09:55 Vent Rate NA 07/18/18 09:55 Inspired O2 21 07/18/18 09:55 Tidal Volume NA 07/18/18 09:55 PEEP NA 07/18/18 09:55 Pressure (ins/psv/peep) NA 07/18/18 09:55 Critical Value SH 07/18/18 09:55 Sodium 156 mEq/L (136-145) H 07/21/18 05:40 Potassium 3.7 mEq/L (3.5-5.1) 07/21/18 05:40 Chloride 123 mEq/L (98-107) H 07/21/18 05:40 Carbon Dioxide 25.6 mEq/L (21.0-31.0) 07/21/18 05:40 Anion Gap 11.1 (7.0-16.0) 07/21/18 05:40 BUN 70 mg/dL (7-25) H 07/21/18 05:40 Creatinine 1.6 mg/dL (0.7-1.3) H 07/21/18 05:40 Est GFR ( Amer) TNP 07/21/18 05:40 Est GFR (Non-Af Amer) TN 07/21/18 05:40 BUN/Creatinine Ratio 43.8 07/21/18 05:40 Glucose 192 mg/dL (70-105) H 07/21/18 05:40 POC Glucose 156 MG/DL (70 - 105) H 07/21/18 11:50 Whole Bld Lactic Acid 1.00 mmol/L (0.60-1.99) 07/19/18 06:00 Uric Acid 9.8 mg/dL (4.4-7.6) H 07/19/18 06:00 Calcium 8.7 mg/dL (8.6-10.3) 07/21/18 05:40 Phosphorus 2.6 mg/dL (2.5-5.0) 07/19/18 06:00 Magnesium 3.2 mg/dL (1.9-2.7) H 07/20/18 05:40 Total Bilirubin 0.7 mg/dL (0.3-1.0) 07/17/18 09:00 AST 20 U/L (13-39) 07/17/18 09:00 ALT 14 U/L (7-52) 07/17/18 09:00 Alkaline Phosphatase 83 U/L (34-104) 07/17/18 09:00 Creatine Kinase 205 U/L (30-223) 07/17/18 09:00 Troponin I 0.19 ng/mL (0.01-0.05) H* D 07/17/18 09:00 B-Natriuretic Peptide 77.6 pg/mL (5.0-100.0) 07/17/18 09:00 Total Protein 8.1 gm/dL (6.0-8.3) 07/17/18 09:00 Albumin 3.8 gm/dL (4.2-5.5) L 07/17/18 09:00 Globulin 4.3 gm/dL 07/17/18 09:00 Albumin/Globulin Ratio 0.9 (1.0-1.8) L 07/17/18 09:00 TSH 0.17 uIU/ml (0.34-5.60) L 07/19/18 06:00 Urine Source CLEAN C 07/17/18 11:50 Urine Color YELLOW 07/17/18 11:50 Urine Clarity SLIGHTLY HAZY (CLEAR) 07/17/18 11:50 Urine pH 6.0 (4.6 - 8.0) 07/17/18 11:50 Ur Specific [place] 1.025 (1.005-1.030) 07/17/18 11:50 Urine Protein NEGATIVE mg/dL (NEGATIVE) 07/17/18 11:50 Urine Glucose (UA) NEGATIVE mg/dL (NEGATIVE) 07/17/18 11:50 Urine Ketones NEGATIVE mg/dL (NEGATIVE) 07/17/18 11:50 Urine Blood MODERATE (NEGATIVE) H 07/17/18 11:50 Urine Nitrate NEGATIVE (NEGATIVE) 07/17/18 11:50 Urine Bilirubin NEGATIVE (NEGATIVE) 07/17/18 11:50 Urine Urobilinogen 0.2 E.U./dL (0.2 - 1.0) 07/17/18 11:50 Ur Leukocyte Esterase NEGATIVE (NEGATIVE) 07/17/18 11:50 Urine RBC 5-10 /hpf (0-5) H 07/17/18 11:50 Urine WBC 2-5 /hpf (0-5) 07/17/18 11:50 Ur Epithelial Cells OCCASIONAL /lpf (FEW) 07/17/18 11:50 Urine Bacteria FEW /hpf (NONE SEEN) 07/17/18 11:50 Urine Mucus FEW /lpf (FEW) 07/17/18 11:50 Urine Osmolality 629 mOsmol/kg 07/18/18 18:00 Ur Random Sodium 20 mmol/L 07/18/18 18:00 Urine Creatinine 110.0 mg/dl (39.0-259.0) 07/18/18 18:00 Microalb/Creat Ratio 77.8 mg/g creat (0.0-30.0) H 07/18/18 18:00 Random Vancomycin 10.9 ug/mL (5.0-40.0) 07/21/18 05:40 - Physical Exam Vitals and I&O: Vital Signs Temp 96.3 F 07/21/18 12:00 Pulse 70 07/21/18 14:08 Resp 18 07/21/18 14:08 BP 146/51 07/21/18 12:00 Pulse Ox 96 07/21/18 14:08 Intake & Output 07/20/18 07/21/18 07/21/18 18:59 06:59 18:59 Intake Total 933.75 1100 Balance 933.75 1100 Weight (lbs) 66.224 kg Intake: Intake, IV Amount 933.75 1100 Dextrose 5% 1,000 ml @ 75 883.75 1000 mls/hr IV .[id number] [facility] Rx#:[id number] Piperacillin Sodium/ 50 100 Tazobact 2.25 gm In Sodium Chloride 0.9% 50 ml @ 100 mls/hr IV Q8HR [facility] Rx#:[id number] Other: # Voids 2 Weight Source Estimated Active Medications: Current Medications Acetaminophen (Tylenol Extra Strength) 1,000 mg PO Q4H PRN PRN Reason: Pain (Moderate) Stop: 09/15/18 15:15 Acetaminophen (Tylenol) 650 mg PO Q4HR PRN PRN Reason: Mild Pain or Fever >101 Stop: 09/15/18 15:18 Acetylcysteine (Mucomyst 20%) 3 ml HHN Q4HRT [facility] Stop: 09/16/18 10:59 Last Admin: 07/21/18 14:08 Dose: 3 ml Albuterol Sulfate (Albuterol 2.5mg/3ml Neb Ud) 2.5 mg HHN Q4HRT [facility] Stop: 09/16/18 18:59 Last Admin: 07/21/18 14:08 Dose: 2.5 mg Amlodipine Besylate (Norvasc) 5 mg PO DAILY [facility] Stop: 09/16/18 08:59 Last Admin: 07/21/18 08:47 Dose: Not Given Dextrose (D50w) 50 ml IVP PRN PRN PRN Reason: Blood Glucose less than 70 Stop: 09/17/18 14:15 Dextrose (Glutose 40%) 18.75 gm PO PRN PRN PRN Reason: Blood Glucose less than 70 Stop: 09/17/18 14:15 Glucagon (Glucagen) 1 mg IM PRN PRN PRN Reason: Blood Glucose less than 70 Stop: 09/17/18 14:15 Piperacillin Sod/Tazobactam (Sod 2.25 gm/ Sodium Chloride) 50 mls @ 100 mls/hr IV Q8HR [facility] Stop: 09/15/18 20:59 Last Admin: 07/21/18 12:04 Dose: 100 mls/hr Dextrose (D5w) 1,000 mls @ 75 mls/hr IV .[id number] [facility] Stop: 09/16/18 17:44 Last Admin: 07/21/18 00:08 Dose: 75 mls/hr Insulin Human Lispro (Humalog Insulin Sliding Scale) 0 units SUBQ Q6HR [facility]; Protocol Stop: 09/17/18 17:59 Last Admin: 07/21/18 12:03 Dose: 3 units Methylprednisolone Sodium Succinate (Solu-Medrol) 40 mg IVP Q6HR [facility] Stop: 09/16/18 11:59 Last Admin: 07/21/18 12:03 Dose: 40 mg Miscellaneous (Vancomycin Iv Per Pharmacy) 1 ea [facility] PRN PRN PRN Reason: PROTOCOL Stop: 09/16/18 16:40 Mupirocin (Bactroban Oint) 1 appl NS BID [facility] Stop: 07/24/18 09:01 Last Admin: 07/21/18 08:50 Dose: 1 appl General: Alert, Mild distress HEENT: Atraumatic, EOMI, Mucous membr. moist/pink Neck: Supple, +2 carotid pulse wo bruit Cardiovascular: Regular rate, Normal S1, Normal S2 Lungs: Other (scattered rhonchi) Abdomen: Bowel sounds, Soft Extremities: no Edema Neurological: Sensation intact Skin: no Rash Psych/Mental Status: Mood NL - Procedures Procedures: Procedures Procedure Code Date GROUP PSYCHOTHERAPY 82984 06/14/15 GROUP PSYCHOTHERAPY [id number] 06/14/15 INSERT EMERGENCY AIRWAY 71762 09/17/16 INSERTION OF ENDOTRACHEAL AIRWAY INTO [place], VIA OPENING [id number] 09/17/16 RESPIRATORY VENTILATION, 24-96 CONSECUTIVE HOURS [id number] 09/17/16 VENT MGMT INPAT INIT DAY 14753 09/17/16 VENT MGMT INPAT SUBQ DAY 37273 09/17/16 Assessment/Plan - Assessment Assessment: SUSIE on CKD Pneumonitis Resp Failure 2/2 Exac COPD Hypernatremia Dehydration Ess Htn w/ CKD CAD New Onset T2DM - Plan Plan: Lab - Result Diagrams 07/19/18 06:00 07/19/18 06:00 Current Medications Acetaminophen (Tylenol Extra Strength) 1,000 mg PO Q4H PRN PRN Reason: Pain (Moderate) Stop: 09/15/18 15:15 Acetaminophen (Tylenol) 650 mg PO Q4HR PRN PRN Reason: Mild Pain or Fever >101 Stop: 09/15/18 15:18 Acetylcysteine (Mucomyst 20%) 3 ml HHN Q4HRT [facility] Stop: 09/16/18 10:59 Last Admin: 07/19/18 14:05 Dose: 3 ml Albuterol Sulfate (Albuterol 2.5mg/3ml Neb Ud) 2.5 mg HHN Q4HRT [facility] Stop: 09/16/18 18:59 Last Admin: 07/19/18 14:04 Dose: 2.5 mg Amlodipine Besylate (Norvasc) 5 mg PO DAILY [facility] Stop: 09/16/18 08:59 Last Admin: 07/19/18 08:11 Dose: Not Given Piperacillin Sod/Tazobactam (Sod 2.25 gm/ Sodium Chloride) 50 mls @ 100 mls/hr IV Q8HR [facility] Stop: 09/15/18 20:59 Last Admin: 07/19/18 11:59 Dose: 100 mls/hr Dextrose (D5w) 1,000 mls @ 75 mls/hr IV .[id number] [facility] Stop: 09/16/18 17:44 Last Admin: 07/19/18 08:14 Dose: 75 mls/hr Methylprednisolone Sodium Succinate (Solu-Medrol) 40 mg IVP Q6HR [facility] Stop: 09/16/18 11:59 Last Admin: 07/19/18 11:08 Dose: 40 mg Miscellaneous (Vancomycin Iv Per Pharmacy) 1 ea [facility] PRN PRN PRN Reason: PROTOCOL Stop: 09/16/18 16:40 Lab - Result Diagrams 07/21/18 05:40 07/21/18 05:40 Kidney fnc better w/ BUN/CR 70/1.6 Na down to 156 contunue D5W replace K WBC down to 13 CXR basically the same BS elevated, start SS f/u electrolytes, cbc passed swallow eval but await GI consult
--- NOTE | 2018-07-21 19:29 | Progress Notes ---
DATE: 07/21/2018 SUBJECTIVE: The patient appears to be doing okay. OBJECTIVE: GENERAL: Awake, in no distress. VITAL SIGNS: Temperature 96.3, pulse 70, respiration 18, blood pressure 146/51, saturation 96%. CHEST: Good breath sounds. No wheezing. Decreased rhonchi. HEART: Regular rate and rhythm. No murmurs. ABDOMEN: Soft. No tenderness. EXTREMITIES: No edema. LABORATORY DATA: WBC is 12.8, hemoglobin 13.4, hematocrit 40.8, platelets 169,000. Sodium is 156, potassium 3.7, BUN 70, creatinine 1.6. IMPRESSION: 1. Respiratory failure. 2. Pneumonia. 3. Dysphagia. 4. Weakness. 5. Hypernatremia, improved. PLAN: Continue nebulizer and antibiotics. We will do supportive care, IV fluids. JOB# [id number]
[2018-07-22 05:12] LABS: T3 FREE 1.3 pg/mL (2.0-4.4); T4 FREE 1.02 ng/dL (0.82-1.77)
== END 2018-07-21 18:10 | DRG 871 ==
LOC: ER 08:18 → TELE 10:58
PROVIDERS: ADMIT Internal Medicine; ATTEND Internal Medicine
PROC: 5A09357 Assistance with Respiratory Ventilation, Less than 24 Consecutive Hours, Continuous Positive Airway Pressure (ICD-10-PCS; principal; 2018-07-18)
PROC: 5A09357 Assistance with Respiratory Ventilation, Less than 24 Consecutive Hours, Continuous Positive Airway Pressure (ICD-10-PCS; 2018-07-19)
PROC: 5A09357 Assistance with Respiratory Ventilation, Less than 24 Consecutive Hours, Continuous Positive Airway Pressure (ICD-10-PCS; 2018-07-20)
DX: A41.9 Sepsis, unspecified organism (principal); J18.9 Pneumonia, unspecified organism; J96.90 Respiratory failure, unspecified, unspecified whether with hypoxia or hypercapnia; N17.9 Acute kidney failure, unspecified; J44.0 Chronic obstructive pulmonary disease with (acute) lower respiratory infection; I13.0 Hypertensive heart and chronic kidney disease with heart failure and stage 1 through stage 4 chronic kidney disease, or unspecified chronic kidney disease; J44.1 Chronic obstructive pulmonary disease with (acute) exacerbation; E87.0 Hyperosmolality and hypernatremia; N18.9 Chronic kidney disease, unspecified; I50.9 Heart failure, unspecified; I25.10 Atherosclerotic heart disease of native coronary artery without angina pectoris; M19.90 Unspecified osteoarthritis, unspecified site; F03.90 Unspecified dementia, unspecified severity, without behavioral disturbance, psychotic disturbance, mood disturbance, and anxiety; E86.0 Dehydration; G40.909 Epilepsy, unspecified, not intractable, without status epilepticus; R13.10 Dysphagia, unspecified; E11.22 Type 2 diabetes mellitus with diabetic chronic kidney disease
CPT/HCPCS: 36415-UA; 36600-90; 71045-TC; 74220-TC; 76770-TC; 80048-TC; 80053-TC; 80202-TC; 81001-TC; 81015-TC; 82043-90; 82550-TC; 82570-TC; 82803-TC; 82948-90; 83036-90; 83605; 83735-TC; 83880-TC; 83935-90; 84100-TC; 84300-TC; 84439-90; 84443-TC; 84479-90; 84484-TC; 84550-TC; 85007-TC; 85025-TC; 87086-90; 92611; 93005; 94640; 94660; 94760; J1100; J2001; J2543; J2920; J3370; J3480; J7070; J7121; J7613; X3401; Z7610